=== PATIENT | male | born 1945 | race Caucasian/White ===

== ENCOUNTER 2017-11-10 07:54 | Day surgery (SDC) | payer MEDICARE, SELFPAY ==
[2017-10-08 12:06] VITALS: BMI 29.5
[2017-11-10 08:19] VITALS: BP 152/94; PULSE 72; RESP 16; TEMP 36.4; O2SAT 97; BMI 29.5
[2017-11-10] MEDS: Cefazolin 2 GM in 0.9% Normal Saline 100 ML IV (09:51)
[2017-11-10] MEDS: Bupiv/Epi 0.5% Mpf 30 ML Vial (10:39)
[2017-11-10 11:02] VITALS: BP 116/71; BP 152/94; PULSE 62; RESP 18; TEMP 36.1; O2SAT 94
[2017-11-10 11:05] VITALS: BP 115/74; BP 152/94; PULSE 59; RESP 18; O2SAT 95
[2017-11-10 11:10] VITALS: BP 124/90; BP 152/94; PULSE 61; RESP 18; O2SAT 94
--- NOTE | 2017-11-10 11:10 | RAD_ITS ---
STUDY: X-RAY CHEST REASON FOR EXAM: Male, 72 years old. Port insertion. TECHNIQUE: Single AP portable view of the chest. COMPARISON: None. FINDINGS: A right-sided portacatheter is in place. The tip is at the junction of the superior vena cava and right atrium. EKG electrodes are seen. Mild increased markings at the lung bases suggestive of linear atelectasis. There is no demonstrated pleural abnormality. Normal size heart. Normal mediastinum and elli. Normal visualized pulmonary arteries. There is atherosclerotic tortuosity of the aortic arch and descending thoracic aorta. There are diffuse degenerative changes of the visualized thoracic spine. Normal visualized ribs, clavicles, and shoulders. There is no demonstrated abnormality of the visualized soft tissue structures of the upper abdomen. RAD/CXR for Line Placement IMPRESSION: The tip of the right linda catheter is at the junction of the superior vena cava and right atrium. Findings suggest mild linear atelectasis at the lung bases. Electronically Signed: Tear Oviedo MD at 11:39 EDT Tel [phone], Service support ,
[2017-11-10 11:15] VITALS: BP 127/83; BP 152/94; PULSE 53; RESP 18; TEMP 36; O2SAT 95
--- NOTE | 2017-11-10 11:28 | PCM.DC.POR ---
Discharge Diet: - - Clear liquids for 24 hours, then regular as tolerated Discharge Activity: Return to Normal Activity, May Shower - with your bandage in place in 1-2 days after surgery. DO NOT SHOWER WHEN YOUR PORT IS ACCESSED. Call your doctor if your incision/area has: Continuous Slow Oozing, Sudden Increased Bleeding, Increased Pain/ Swelling, Increased Redness Call your doctor if you observe: Fever of 101 or Higher Remove Dressing in (days):: 3 - When you remove the bandage, leave the steri-strips intact until they fall off. Allergies/Adverse Reactions: Allergies No Known Allergies Allergy (Verified 11/07/17 09:02) Medications to take at Discharge Allopurinol [Zyloprim] 300 mg PO DAILY 10/07/17 Docusate Sodium [Dulcoease] 100 mg PO BID 10/07/17 Fluticasone 0.05% [Flonase Nasal [place]] 2 spray NASAL DAILY 10/07/17 Lisinopril [Zestril] 5 mg PO DAILY 10/07/17 Oxycodone HCl/Acetaminophen [Percocet 5/325] 1 tab PO Q6H PRN PRN 10/07/17 Sennosides [Senna] 8.6 mg PO DAILY 10/07/17 Testosterone [Fortesta] 10 mg BC DAILY 10/07/17 Ondansetron HCl [Zofran] 4 mg PO Q8H PRN PRN #30 tab 10/09/17 Primary Care Physician: Yaquelin Joe NP-C [Primary Care Provider] - Test Results: Test results from this visit will be discussed in further detail at your follow-up appointment, if applicable. Please Follow Up With: Andrew Sims MD When: Call tomorrow to make 1 week follow up appt [phone]
--- NOTE | 2017-11-10 11:31 | DCINST_ITS ---
Discharge Diet: - - Clear liquids for 24 hours, then regular as tolerated Discharge Activity: Return to Normal Activity, May Shower - with your bandage in place in 1-2 days after surgery. DO NOT SHOWER WHEN YOUR PORT IS ACCESSED. Call your doctor if your incision/area has: Continuous Slow Oozing, Sudden Increased Bleeding, Increased Pain/ Swelling, Increased Redness Call your doctor if you observe: Fever of 101 or Higher Remove Dressing in (days):: 3 - When you remove the bandage, leave the steri- strips intact until they fall off. Allergies/Adverse Reactions: Allergies No Known Allergies Allergy (Verified 11/07/17 09:02) Medications to take at Discharge Allopurinol [Zyloprim] 300 mg PO DAILY 10/07/17 Docusate Sodium [Dulcoease] 100 mg PO BID 10/07/17 Fluticasone 0.05% [Flonase Nasal [place]] 2 spray NASAL DAILY 10/07/17 Lisinopril [Zestril] 5 mg PO DAILY 10/07/17 Oxycodone HCl/Acetaminophen [Percocet 5/325] 1 tab PO Q6H PRN PRN 10/07/17 Sennosides [Senna] 8.6 mg PO DAILY 10/07/17 Testosterone [Fortesta] 10 mg BC DAILY 10/07/17 Ondansetron HCl [Zofran] 4 mg PO Q8H PRN PRN #30 tab 10/09/17 Primary Care Physician: Yaquelin Joe NP-C [Primary Care Provider] - Test Results: Test results from this visit will be discussed in further detail at your follow- up appointment, if applicable. Please Follow Up With: Andrew Sims MD When: Call tomorrow to make 1 week follow up appt [phone]
--- NOTE | 2017-11-10 11:41 | OP.PCM_ITS ---
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 Cancer of the base of tongue. 2. Encounter for insertion of venous access port Post-Operative Diagnosis: Same Surgery/Procedure Performed:: 1. Fluoroscopy and ultrasound-guided right chest port utilizing right IJ. 2. EGD with PEG placement Specimen's removed: None Description of Procedure: After obtaining informed consent patient was brought back to the operating room MAC anesthesia was induced and the right chest and neck were prepped in normal sterile fashion. Ultrasound was used to evaluate both IJ is in the right IJ was selected. Next, using a needle, the right IJ was accessed and a guidewire was passed on into the superior vena cava under fluoroscopy guidance. A small incision was made over the puncture site and the dilator introducer was placed over the guidewire. Next this was capped and the pocket was made for the port. 1% lidocaine with epinephrine was injected in the proposed port site. An incision was made with scalpel. Electrocautery was used to make a pocket under the skin and subcutaneous tissue. Hemostasis was obtained. Next, the catheter was tunneled up to the neck incision site and placed through the introducer. The peel-away introducer was removed and the position of the catheter was confirmed on fluoroscopy. Next, the catheter was trimmed and attached to the port with the locking device. Interrupted 2-0 PDS were used to anchor the port to the chest wall and then the port was placed inside the pocket. The pocket was then flushed with saline and the port irrigated with saline. There was good blood return and the port flushed easily. Next, heparin was injected into the port. The skin was closed with subcutaneous interrupted 3-0 Vicryl sutures and interrupted skin 3-0 nylon sutures. A single 3-0 Vicryl sutures placed under the skin at the neck incision site. Steri-Strips were placed as well as op sites. Next the PEG portion of the procedure was undertaken. The abdomen was exposed and the endoscope was placed into the mouth and down into the stomach. There is a selected in the left upper quadrant and there was good one-to-one motion of the stomach wall and good transillumination. This area was marked and prepped with ChloraPrep. Next this area was injected with lidocaine and small incision was made in the skin. A needle was placed through this incision into the stomach wall under direct visualization with endoscope. Next a loop was placed through the catheter and grasped with a snare with the endoscope. The snare and endoscope were retracted and the loop was attached to the front end of the feeding tube. This was pulled back down through the mouth and into the stomach and out through the skin. The endoscope was placed back into the stomach and the feeding tube was in good position with no bleeding. There was some skin bleeding from the incision site and a 3-0 chromic suture was placed in a horizontal mattress fashion around the tube and tightened. Hemostasis was obtained. Next the hub was placed over the feeding tube as well as the clamp and it was trimmed and the port was placed onto the catheter. The endoscope was removed. Patient tolerated procedure well, was taken to PACU in stable condition. Chest x-ray will be obtained. Grafts/Implants Used: 8 [place] [employer]
[2017-11-10 12:19] VITALS: BP 152/94; RESP 18
--- NOTE | 2017-11-10 12:22 | SUR.PHASEII ---
SPENT 15-20 MINUTES REVIEWING PEG TUBE CARE AND FLUSHING USING DEMO KIT WELL D/C INSTRUCTIONS, RETURNS DEMONSTRATION AND BOTH VERBALIZE UNDERSTANDING. PATIENT TAKEN STRAIGHT TO OUTPATIENT PAVIL[facility] FOR RADIATION THERAPY.
== END 2017-11-10 12:17 | disposition home or self-care (01) ==
LOC: EN 07:56 → AC 07:56
PROVIDERS: Family Provider Nurse Practitioner; PCP Nurse Practitioner; Visit Provider Surgery
PROC: 0DH64UZ Insertion of Feeding Device into Stomach, Percutaneous Endoscopic Approach (ICD-10-PCS; CPT 43246; principal; 2017-11-10 09:15)
PROC: (CPT 36561; 2017-11-10 09:15)
DX: C01 Malignant neoplasm of base of tongue (principal); Z45.2 Encounter for adjustment and management of vascular access device; I10 Essential (primary) hypertension; E78.00 Pure hypercholesterolemia, unspecified; G47.30 Sleep apnea, unspecified; Z79.899 Other long term (current) drug therapy; Z85.47 Personal history of malignant neoplasm of testis
CPT/HCPCS: 36561; 43246; 76937; 71045; 77001; J7120; C1788

== ENCOUNTER 2017-12-05 08:25 | Outpatient (RCR) | payer MEDICARE, SELFPAY ==
[2017-11-20 15:33] VITALS: BMI 29.5
== END 2017-12-12 23:59 ==
LOC: NS 08:25
PROVIDERS: Family Provider Nurse Practitioner; PCP Nurse Practitioner; Visit Provider Student in an Organized Health Care Education/Training Program
DX: C01 Malignant neoplasm of base of tongue (principal); Z71.3 Dietary counseling and surveillance
CPT/HCPCS: 77386; 97802

== ENCOUNTER 2017-12-24 12:30 | Outpatient (RCR) | payer MEDICARE, SELFPAY ==
[2017-11-20 15:33] VITALS: BMI 29.5
== END 2018-01-11 23:59 ==
LOC: NS 12:30
PROVIDERS: Family Provider Nurse Practitioner; PCP Nurse Practitioner; Visit Provider Student in an Organized Health Care Education/Training Program
DX: C01 Malignant neoplasm of base of tongue (principal); Z71.3 Dietary counseling and surveillance
CPT/HCPCS: 97803

== ENCOUNTER 2018-01-06 11:18 | Inpatient (IN) | payer MEDICARE, SELFPAY ==
[2017-11-20 15:33] VITALS: BMI 29.5
[2018-01-06 11:18] VITALS: BP 118/69; PULSE 87; RESP 16; TEMP 37.5; O2SAT 99; BMI 26.3
--- NOTE | 2018-01-06 11:34 | ED.DCSUM_ITS ---
- ER Visit Summary Date of Service: 01/06/18 Chief Complaint: Bacteremia History of Present Illness: The patient is a 72 M presents to the emergency department with positive blood cultures. The patient has a history of oropharyngeal cancer. He has undergone chemo and radiation. His last treatment was on the . He did follow-up in the oncology office yesterday. He has rather significant radiation dermatitis overlying his port. There was questionable cellulitis to the area. He had blood cultures obtained which were positive for staph aureus. Presents here today. He does not feel like he had fevers. He has had some diffuse joint pain, but states that is been normal throughout his treatment. He denies any nausea or vomiting. He denies any shortness of breath. Physical Examination: Vital signs reviewed General: Well-nourished, well-developed Head: Normocephalic, atraumatic Eyes: Pupils equal and reactive, extraocular muscles intact Neck, supple, no lymphadenopathy Heart: Regular rate and rhythm Respiratory: No distress, clear bilaterally, dermatitis across the anterior neck down into the anterior chest. There is purulence overlying his port. There is tenderness to palpation. Abdomen: Soft, nontender, nondistended, no peritoneal signs Back: Nontender Extremities: Nontender, no edema, no cords Skin: Normal color, radiation dermatitis Neuro: Alert and oriented, no focal or lateralizing deficits Test Results: [] Emergency Department Course and Treatment: IV was established on patient arrival. There is some purulent drainage from overlying his port site. I did discuss the blood cultures with Dr. Mcgraw, for infectious disease. The PCR was mecA not detected. He did recommend starting cefazolin, 2 g every 8 hours. Screening labs were obtained and were relatively unremarkable. I did discuss the patient with Dr. coyle. He is going to remove the patient's MediPort. The patient will be admitted for IV antibiotics and infectious disease consult. He was discussed with the hospitalist. Treatment Plan: [] Disposition: Admission Impression: 1. Bacteremia 2. Infected Mediport This note was generated with [employer] dictation software. It may contain incorrect words, spelling, and punctuation that were not noted in review of the chart prior to signing ED Disposition - Plan for ED Patient: Chief Complaint: General Illness Referrals: Yaquelin Joe, BRUNA-C [Primary Care Provider] -
[2018-01-06] MEDS: Morphine 4 MG/ML Syringe IV (11:39)
[2018-01-06 11:55] LABS: Absolute Neutrophil Count 3.8 X10^3/uL (2.0-7.7); Basophil# 0.02 X10^3/uL; Basophil% 0.4 % (0-1); Hematocrit 32.5 % (40-54); Hemoglobin 10.7 g/dl (13.0-16.5); Mean Corp Hgb Conc 32.9 g/gl (32-36); Mean Corpuscular Hgb 29.2 pg (27.0-32.0); Mean Corpuscular Volume 88.6 fL (80-94); Mean Platelet Vol. 8.8 fl (6.2-12.0); Monocyte# 0.85 X10^3/uL; Monocyte% 15.8 % (0-10); Neutrophil # 3.79 X10^3/uL (2.7-7.7); Neutrophil % 70.6 % (47-70); Platelet Count 183 K/mm3 (150-450); RBC Distribution Width CV 14.2 % (11.6-14.6); RBC Distribution Width SD 46.5 fl (35.1-43.9); Red Blood Count 3.67 M/mm3 (4.6-6.2); White Blood Count 5.4 K/mm3 (4.4-11.0)
[2018-01-06 11:57] LABS: POSITIVE COUNT NO; POSITIVE DIFFERENTIAL NO; POSITIVE MORPHOLOGY NO
[2018-01-06 12:10] LABS: ALB/GLOB Ratio 0.7 RATIO (0.9-2.4); AST(SGOT) 24 U/L (15-37); Alanine Aminotransfer ALT/SGPT 89 U/L (16-61); Albumin, Serum 2.8 g/dL (3.2-5.0); Alkaline Phosphatase 152 U/L (45-117); Anion Gap 6 (5-15); BUN 22 mg/dL (7-18); BUN/Creat Ratio 23.8 RATIO (10-20); Calcium,Total 8.3 mg/dL (8.5-10.1); Chloride 102 mmol/L (98-107); Creatinine, Serum 0.92 mg/dL (0.70-1.30); EST Glomerular Filtration Rate 86 mL/min (>60); Est Glom Filt Rate - Afr Amer 104 mL/min (>60); Estimated Creatinine Clearance 80.83 ml/min; Globulin 4.3 g/dL (2.2-4.2); Glucose 146 mg/dL (74-106); Potassium 4.2 mmol/L (3.5-5.1); Protein, Total 7.1 g/dL (6.4-8.2); Sodium Level 135 mmol/L (136-145)
[2018-01-06 12:18] LABS: Lactic Acid 0.6 mmol/L (0.4-2.0)
--- NOTE | 2018-01-06 12:53 | ED.RN ---
pt enroute to dr jensen office to have port removed and will then be taken to his room on the floor.
--- NOTE | 2018-01-06 12:59 | HP.PCM_ITS ---
Problem List (1) Port or reservoir infection Status: Acute (2) Regional lymph node metastasis present Status: Chronic (3) Malignant neoplasm of base of tongue Status: Chronic (4) Constipation Status: Acute Qualifiers: Constipation type: unspecified constipation type Qualified Code(s): K59.00 - Constipation, unspecified (5) Chemotherapy management, encounter for Status: Acute (6) Dehydration Status: Acute (7) Central line complication Status: Acute Qualifiers: Encounter type: initial encounter Qualified Code(s): T82.9XXA - Unspecified complication of cardiac and vascular prosthetic device, implant and graft, initial encounter (8) Testicular cancer Status: Acute (9) HTN (hypertension) Status: Chronic (10) Gout Status: Acute (11) MIGUEL (obstructive sleep apnea) Status: Acute (12) Dyslipidemia Status: Acute (13) History of orchiectomy Status: Acute (14) S/P cervical spinal fusion Status: Acute (15) S/P rotator cuff repair Status: Acute (16) Squamous cell carcinoma Status: Acute Comment: neck History of Present Illness Date of Admission: 01/06/18 Chief Complaint: Discharge from the port site The patient is a 72 year old M with past medical history significant for head and neck CA (tongue CA) for which patient underwent radical neck dissection on the right and excision of submandibular gland in August 2017. Patient has since received chemo and radiation. He has a poor. Upon routine follow-up with his oncologist the port site was found to be erythematous with some discharge. Cultures were obtained which came back positive for staph aureus. Patient was therefore advised to present to the emergency department. An assessment of port site infection was made started on cefazolin and admitted to regular nursing floor for further management and on further questioning patient admitted to intermittent fever but no chills. Past Medical History Past Medical History (Chronic Problems): Chronic Problems (Last Reviewed 01/05/18 @ 11:41 by Amberly Liu) Regional lymph node metastasis present (Chronic) Malignant neoplasm of base of tongue (Chronic) HTN (hypertension) (Chronic) Medical History: Medical History (Last Reviewed 01/05/18 @ 11:41 by Amberly Liu) Testicular cancer (Acute) C62.90 HTN (hypertension) (Chronic) I10 Gout (Acute) M10.9 MIGUEL (obstructive sleep apnea) (Acute) G47.33 Dyslipidemia (Acute) E78.5 Squamous cell carcinoma (Acute) C44.92 neck Allergies No Known Allergies Allergy (Verified 01/06/18 11:22) Home Medications: Ambulatory Orders Medication Instructions Recorded Testosterone [Fortesta] 2 gm BC DAILY 10/07/17 Amoxicillin/Potassium Clav 1 each GT BID 01/06/18 [Augmentin 875-125 Tablet] Lactose-Reduced Food/Fiber 165 GT QHS 01/06/18 [Isosource 1.5 Matthew Tube Feed Lq] Metoclopramide [Reglan] 10 mg GT 4X/DAY PRN 01/06/18 Oxycodone HCl [Roxicodone] 5 mg GT Q6H PRN PRN 01/06/18 Polyethylene Glycol 3350 [Miralax] 17 gm GT DAILY PRN 01/06/18 Surgical History: Surgical History (Last Reviewed 01/05/18 @ 11:42 by Amberly Liu) History of orchiectomy (Acute) Z90.79 S/P cervical spinal fusion (Acute) Z98.1 S/P rotator cuff repair (Acute) Z98.890 Smoking Status: Former smoker - *Family History Maternal Family History: Family History (Last Reviewed 12/29/17 @ 13:35 by Amberly Liu) Mother Alzheimer's dementia Father Heart disease Myocardial infarction Heart failure History Items: Heart Disease Review of Systems Constitutional: Reports: Chills, Fever HEENT: Denies: Head Aches, Sinus Congestion, Sinus Drainage Cardiovascular: Denies: Chest Pain, Orthopnea, Palpitations, Paroxysmal Noc. Dyspnea Respiratory: Denies: Cough, Shortness of breath at rest, Shortness of breath upon exertion, Sputum production Gastrointestinal: Denies: Abdominal Pain, Hematemesis, Hematochezia, Nausea, Me silvia, Vomiting Genitourinary: Denies: Dysuria, Frequency, Hematuria, Urgency Musculoskeletal: Denies: Joint Pain, Joint Tenderness Skin: Reports: Rash Neurological: Denies: Focal weakness, Numbness, Tingling Psychiatric: Denies: Homicidal Ideations, Suicidal Ideations VTE Information - Inpt Only VTE Present on Admission: No VTE Mechan Device Prophylaxis: Knee High PAULA Hose VTE Pharm Prophylaxis ordered?: Yes Patient Problems: Active and Suspected Problems (Last Reviewed 01/05/18 @ 11:41 by Amberly Liu) Constipation (Acute) Chemotherapy management, encounter for (Acute) Dehydration (Acute) Central line complication (Acute) Port or reservoir infection (Acute) Infection due to Port-A-Cath (Acute) - Physical Exam General: Alert, Oriented x3, Cooperative HEENT: Atraumatic, Normocephalic Neck: Supple, No JVD, Trachea Midline, - - Radiation dermatitis around the neck Lungs: Clear to auscultation, No wheeze Cardiovascular: Regular rate, Normal S1, Normal S2, PMI Normal Abdomen: Bowel Sounds Present, Soft, Non Tender Extremities: No clubbing, No cyanosis, No edema Skin: - - Radiation dermatitis involving the neck Musculoskeletal: - - Full range of motion in all major muscle groups. Neurological: Neuro grossly intact Psych/Mental Status: Normal Affect Vital Signs Temp Pulse Resp BP Pulse Ox 99.5 F H 87 16 118/69 99 01/06/18 11:18 01/06/18 11:18 01/06/18 11:18 01/06/18 11:18 01/06/18 11:18 Oxygen Delivery Method Room Air Weight: 87.997 kg Body Mass Index (BMI) 26.3 Laboratory Tests Past 24 Hrs 01/06/18 01/06/18 01/06/18 11:41 11:41 11:41 WBC 5.4 RBC 3.67 L Hgb 10.7 L Hct 32.5 L MCV 88.6 MCH 29.2 MCHC 32.9 RDW 14.2 RDW Differential 46.5 H Plt Count 183 MPV 8.8 Immature Gran % (Auto) 0.200 Neut % (Auto) 70.6 H Lymph % (Auto) 13.0 L [place] % (Auto) 15.8 H Eos % (Auto) 0.0 Baso % (Auto) 0.4 Absolute Neuts (auto) 3.8 Absolute Lymphs (auto) 0.70 L Total Counted Not Reportable Sodium 135 L Potassium 4.2 Chloride 102 Carbon Dioxide 27.0 Anion Gap 6 BUN 22 H Creatinine 0.92 Estim Creat Clear Calc 80.83 Est GFR (MDRD) Af Amer 104 Est GFR (MDRD) Non-Af 86 BUN/Creatinine Ratio 23.8 H Glucose 146 H Lactic Acid 0.6 Calcium 8.3 L Total Bilirubin 0.40 AST 24 ALT 89 H Alkaline Phosphatase 152 H Total Protein 7.1 Albumin 2.8 L Globulin 4.3 H Albumin/Globulin Ratio 0.7 L Assessment/Plan All Active Problems (Last Reviewed 01/05/18 @ 11:41 by Amberly Liu) Constipation (Acute) Chemotherapy management, encounter for (Acute) Dehydration (Acute) Central line complication (Acute) Port or reservoir infection (Acute) Infection due to Port-A-Cath (Acute) Testicular cancer (Acute) Gout (Acute) MIGUEL (obstructive sleep apnea) (Acute) Dyslipidemia (Acute) History of orchiectomy (Acute) S/P cervical spinal fusion (Acute) S/P rotator cuff repair (Acute) Squamous cell carcinoma (Acute) Patient is a 72-year-old gentleman with history of head and neck CA currently undergoing chemoradiation therapy presented with erythema and discharge from his port site 1. Acute port infection: Blood cultures obtained and as outpatient so far positive for staph aureus. Patient was started on cefazolin as well as vancomycin with consultation placed infectious disease 2. Head and neck CA) tongue CA) status post modified radical neck dissection on the right and excision of submandibular gland August 2017 consultation was placed the patient's oncologist Dr. Lozano 3. Gout patient is on allopurinol 4. Hypertension was previously on lisinopril however is not taking his medication for months and his blood pressure appears well-controlled 5. DVT prophylaxis SC Lovenox Code Visit Inpatient E&M: 89433 Init Hosp L3
[2018-01-06] MEDS: Cefazolin 2 GM in 0.9% Normal Saline 100 ML IV (14:13)
[2018-01-06 14:26] VITALS: BMI 26.2
[2018-01-06 14:30] VITALS: BMI 26.2
--- NOTE | 2018-01-06 14:46 | PCM.PN.SRG ---
Patient Problems: Active and Suspected Problems (Last Reviewed 01/05/18 @ 11:41 by Amberly Liu) Constipation (Acute) Chemotherapy management, encounter for (Acute) Dehydration (Acute) Central line complication (Acute) Port or reservoir infection (Acute) Subjective: Patient is having pain in the right upper chest and there is purulent drainage from his port site. No fevers or chills. - Physical Exam General: Alert, Oriented x3, Cooperative Neck: - - Patient has radiation dermatitis of the neck Lungs: - - Patient has redness and purulence at the port site with drainage of purulent material Cardiovascular: Regular rate, Regular Rhythm Abdomen: Soft, Non Tender Vital Signs Temp Pulse Resp BP Pulse Ox 99.5 F H 87 16 118/69 99 01/06/18 11:18 01/06/18 11:18 01/06/18 11:18 01/06/18 11:18 01/06/18 11:18 Oxygen Delivery Method Room Air Weight: 193 lb Body Mass Index (BMI) 26.2 Laboratory Tests Past 24 Hrs 01/06/18 01/06/18 01/06/18 11:41 11:41 11:41 WBC 5.4 RBC 3.67 L Hgb 10.7 L Hct 32.5 L MCV 88.6 MCH 29.2 MCHC 32.9 RDW 14.2 RDW Differential 46.5 H Plt Count 183 MPV 8.8 Immature Gran % (Auto) 0.200 Neut % (Auto) 70.6 H Lymph % (Auto) 13.0 L [place] % (Auto) 15.8 H Eos % (Auto) 0.0 Baso % (Auto) 0.4 Absolute Neuts (auto) 3.8 Absolute Lymphs (auto) 0.70 L Total Counted Not Reportable Sodium 135 L Potassium 4.2 Chloride 102 Carbon Dioxide 27.0 Anion Gap 6 BUN 22 H Creatinine 0.92 Estim Creat Clear Calc 80.83 Est GFR (MDRD) Af Amer 104 Est GFR (MDRD) Non-Af 86 BUN/Creatinine Ratio 23.8 H Glucose 146 H Lactic Acid 0.6 Calcium 8.3 L Total Bilirubin 0.40 AST 24 ALT 89 H Alkaline Phosphatase 152 H Total Protein 7.1 Albumin 2.8 L Globulin 4.3 H Albumin/Globulin Ratio 0.7 L Medical Necessity - Tobacco Use Smoking Status: Never smoker Assessment/Plan All Active Problems (Last Reviewed 01/05/18 @ 11:41 by Amberly Liu) Constipation (Acute) Chemotherapy management, encounter for (Acute) Dehydration (Acute) Central line complication (Acute) Port or reservoir infection (Acute) Testicular cancer (Acute) Gout (Acute) MIGUEL (obstructive sleep apnea) (Acute) Dyslipidemia (Acute) History of orchiectomy (Acute) S/P cervical spinal fusion (Acute) S/P rotator cuff repair (Acute) Squamous cell carcinoma (Acute) 72-year-old male with bacteremia and port infection 1. Patient had culture earlier this week of his blood and his port which both grew staph. The patient is having purulent drainage from around his port. He presented to the office on his way to the floor from the emergency room for port removal. 2. I did remove his port and send culture of the fluid around the port as well as the port itself for culture. Patient tolerated the procedure well. Andrew Sims MD Pager: [facility] [address] [place] [address], [address] [place] [phone] Office:
--- NOTE | 2018-01-06 14:48 | PCM.OPRPT ---
Problem List (1) Infection due to Port-A-Cath Status: Acute Qualifiers: Encounter type: initial encounter Qualified Code(s): T80.219A - Unspecified infection due to central venous catheter, initial encounter Report of Operation Date of Procedure: 01/06/18 Pre-Operative Diagnosis: Infection of right chest port Post-Operative Diagnosis: Same Surgery/Procedure Performed:: Removal of right chest port Specimen's removed: Port and culture of fluid around port Description of Procedure: The patient was anesthetized and the former incision was opened. There was purulent drainage around the port. This was cultured. Next the catheter was withdrawn from its tunnel and the port was removed from its pocket. The pocket was irrigated copiously and packed with half-inch iodoform gauze and bandage. Patient tolerated the procedure well. Culture and port will be sent for results. The patient was sent from here to the floor for IV antibiotics.
[2018-01-06] MEDS: morphine 10 MG/ML Syringe IV ×2 (15:00→15:15)
[2018-01-06] MEDS: Dext 5%-0.45% NS 1,000 ML 100 ML IV (15:00)
--- NOTE | 2018-01-06 15:22 | PCM.RX.CS ---
Consult Pharmacy has been consulted to manage selected antiobiotic: Vancomycin Type of Consult: New start Suspected Infection: Bacteremia Prior Doses of Antibiotics Received/Current Regimen: NONE Labs: Sodium 135 mmol/L (136-145) L 01/06/18 11:41 Potassium 4.2 mmol/L (3.5-5.1) 01/06/18 11:41 Chloride 102 mmol/L (98-107) 01/06/18 11:41 Carbon Dioxide 27.0 mmol/L (21.0-32.0) 01/06/18 11:41 Anion Gap 6 (5-15) 01/06/18 11:41 BUN 22 mg/dL (7-18) H 01/06/18 11:41 Creatinine 0.92 mg/dL (0.70-1.30) 01/06/18 11:41 Est GFR (MDRD) Af Amer 104 mL/min (>60) 01/06/18 11:41 Est GFR (MDRD) Non-Af 86 mL/min (>60) 01/06/18 11:41 BUN/Creatinine Ratio 23.8 RATIO (10-20) H 01/06/18 11:41 Glucose 146 mg/dL (74-106) H 01/06/18 11:41 Weight used for dosin kg Estimated Creatinine Clearance: 81ML/MIN Goal Trough: 15-20 mcg/mL Pharmacy Plan for Drug Dosing: Pharmacy consulted for vancomycin management for positive blood cultures. An initial 15mg/kg was ordered, however the patient's scheduled regimen came out to 1500mg, while the loading dose was 1250mg. Since the loading dose was a smaller dose then the recommended regimen per protocol, a clinical decision was made to just start the patient on scheduled vancomycin and omit the initial dose given it was less. Will check a trough prior to the 4th dose of regimen. PLAN/RECOMMENDATIONS 1. Vancomycin 1500mg IV Q12hrs to start 01/06/18 @1600 2. Trough scheduled 01/08/18 @0330 3. Pharmacy Service will continue to monitor and adjust dosing as required.
--- NOTE | 2018-01-06 15:41 | NS ---
Rec nocturnal feeding from 9 p.m. to 6 a.m (9 hour feeding) as is pt's goal at home. Rec Jevity 1.5 at goal rate of 195cc/hour for 9 hours w/ 100cc H2O flush before and after feeding and w/ an additional 210cc flush 5x throughout the day to provide 2633 calories, 112 g protein, and 2584cc total fluid per day. Would start FIRST feeding at 165cc/hour and increase by 15cc every 3 hours as pt tolerates until goal rate achieved. Pippa Orr MS, RDN, LD
--- NOTE | 2018-01-06 16:33 | CON.PCM_ITS ---
Consult Referring Physician: Dr. Bindu Quiroga. Consult Results: Port related sepsis. 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 Patient finished adjuvant chemo and radiation on 12/25/2017. He was found to have redness at the port site with some discharge. Cultures were obtained which came back positive for staph aureus. Patient went to the emergency department. An assessment of port site infection was made, started on cefazolin and Vancomycin, admitted to regular nursing floor for further management. He has slight pain in the neck. Past Medical History: Chronic Problems (Last Reviewed 01/05/18 @ 11:41 by Amberly Liu) Regional lymph node metastasis present (Chronic) Malignant neoplasm of base of tongue (Chronic) HTN (hypertension) (Chronic) Past Medical/Surgical History: Past Medical History - Most Recent Inpatient Visit Past Medical History Start: 01/06/18 13:45 Text: Status: Complete Freq: ONCE Protocol: Document 01/06/18 14:30 [facility] [place] (Rec: 01/06/18 14:34 [facility] [place] [id number]) BMI Required to complete PMH What is Patient's BMI 26.2 Past Medical History Unable History Recalled Yes Query Text:Pt Unable/Family Not Present Neurologic Medical History Hx Stroke/TIA No Hx Dementia/Alzheimer's No Hx Parkinson's Disease No Hx Seizures No Hx Multiple Sclerosis No Hx Migraines No Cardiac Medical History VTE Present on Admission No Hx of Deep Vein Thrombosis/VTE/PE No Hx Hypertension Yes: on medication Hx Chest Pain/Angina No Hx Heart Attack No Hx Cardiac Surgery/Stents/Etc. No Hx Heart Failure No Hx Pacemaker/AICD No Hx Irregular Heartbeat and/or Afib No Hx Anticoagulant Therapy No Query Text:(Coumadin, Aspirin, Plavix, Xarelto, etc.) Hx Pain in Legs when Walking/Leg Cramps No Respiratory Medical History Hx COPD No Hx Emphysema No Hx Smoking No Smoking Status Never smoker Hx Tobacco Use in last 12 months No Hx Sleep Apnea Yes CPAP No BIPAP No STOP Results Positive GI Medical History Hx Ulcer No Hx Hepatitis No Hx Cirrhosis No Hx GI Bleed No Hx Unplanned Weight Loss Yes Genitourinary Medical History Indwelling Catheter in Place on Arrival/ No Admission Hx Renal Disease No Hx Dialysis No Musculoskeletal History Hx Arthritis Yes: left knee Hx Rheumatoid Arthritis No Endocrine Medical History Hx Diabetes No Hx Thyroid Disease No Hematologic Medical History Hx of Blood Transfusion No Hx of Transfusion in last 3 Months No Ever experience any problems with No transfusion(s)? Hx of Preganancy in last 3 Months N/A Nurse Filling Out Transfusion & SGESSEL Questions: Date: 01/06/18 Time: 14:32 Psycho/Social Medical History Hx Depression No Hx Anxiety No Hx Alcohol Use No: rare Hx Substance Use No Other Medical History Hx Blood Disorders No Hx Anemia No Hx Cancer Yes: tongue cancer-August 2017 s/ p radiation and chemo finished 12/25/17 Hx Drug Resistant Organism No Wound/Pressure Injury Present on Arrival No /Admission Query Text:If yes, chart assessment in Shift/Clinical Findings Central Line/PICC/VAD Present on Arrival No /Admission Antibiotics within last 7 days? Yes Name of Antibiotic (Include dose/# days Amoxicillin taken if known) Last day ATB taken 01/06/18 Comments Port removed 01/06/18 Risk for Readmission Number of Risk Factors 3 At Risk for Readmission Patient is At Risk For Readmission Patient is eligible for Call Back Y Past Medical History (Last Reviewed 01/05/18 @ 11:41 by Amberly Liu) Testicular cancer (Acute) HTN (hypertension) (Chronic) Gout (Acute) MIGUEL (obstructive sleep apnea) (Acute) Dyslipidemia (Acute) Squamous cell carcinoma (Acute) Past Surgical History (Last Reviewed 01/05/18 @ 11:42 by Amberly Liu) History of orchiectomy (Acute) S/P cervical spinal fusion (Acute) S/P rotator cuff repair (Acute) Maternal Family History: Family History (Last Reviewed 12/29/17 @ 13:35 by Amberly Liu) Mother Alzheimer's dementia Father Heart disease Myocardial infarction Heart failure Family History: Heart Disease - Social History Smoking Status: Former smoker Allergies/Adverse Reactions: Allergy/AdvReac Type Severity Reaction Status Date / Time No Known Allergies Allergy Verified 01/06/18 11:22 Review of Systems Constitutional:: Reports: Pain - neck.. Denies: Fever, Sweats Cardiovascular:: Denies: Chest pain, Palpitations, Dyspnea on exertion, Orthopnea, PND, Shortness of breath Respiratory: Denies: Cough, Hemoptysis, Shortness of Breath, Wheezing Gastrointestinal:: Reports: Nausea. Denies: Abdominal pain, Vomiting, Diarrhea, Constipation, Hematochezia Genitourinary: Denies: Dysuria, Hematuria, 15, Flank pain Musculoskeletal:: Denies: Back pain, Myalgia, Arthralgia Skin: Reports: - - skin peeling around the neck. Neurological:: Denies: Headache, Dizziness, Visual changes, Tinnitus, Hearing loss Psychiatric: Denies: Anxiety, Depression, Homicidal Ideations, Suicidal Ideations Vital Signs Height 6 ft Weight: 87.543 kg Weight in Pounds 193.0 lbs BMI 29.5 Pulse Ox 99 Temperature 99.5 F Pulse Rate 87 Respiratory Rate 16 Blood Pressure 118/69 - Physical Exam General: Alert, Oriented x3, No apparent distress HEENT: Atraumatic, PERRLA, EOMI, Normocephalic Neck:: - Cardiac:: Regular rate, Regular rhythm, Normal S1, Normal S2. Negative for: Murmur Lungs: Clear to auscultation, Excusion symmetrical. Negative for: Rhonchi, Wheezes Abdomen:: Bowel sounds x 4, Soft, Non-tender, Non-distended. Negative for: Hepatosplenomegaly Extremities:: Negative for: Cyanosis, Edema Neurological: Neuro grossly intact Skin:: Redness - Right and Left side with desquamation, - - Port site R IC area still oozing. Psychiatric:: Appropriate affect, Euthymic Lymphatics:: Negative for: Cervical lymphadenopathy, Supraclavicular lymphadenopathy, Axillary lymphadenopathy Laboratory Data: Laboratory Tests 01/06/18 01/06/18 01/06/18 Range/Units 11:41 11:41 11:41 WBC 5.4 (4.4-11.0) K/mm3 RBC 3.67 L (4.6-6.2) M/mm3 Hgb 10.7 L (13.0-16.5) g/dl Hct 32.5 L (40-54) % MCV 88.6 (80-94) fL MCH 29.2 (27.0-32.0) pg MCHC 32.9 (32-36) g/gl RDW 14.2 (11.6-14.6) % RDW Differential 46.5 H (35.1-43.9) fl Plt Count 183 (150-450) K/mm3 MPV 8.8 (6.2-12.0) fl Immature Gran % (Auto) 0.200 (0.0-0.9) % Neut % (Auto) 70.6 H (47-70) % Lymph % (Auto) 13.0 L (19-41) % [place] % (Auto) 15.8 H (0-10) % Eos % (Auto) 0.0 (0-5) % Baso % (Auto) 0.4 (0-1) % Absolute Neuts (auto) 3.8 (2.0-7.7) X10^3/uL Absolute Lymphs (auto) 0.70 L (0.83-4.51) X10^3/ul Total Counted Not Reportable Sodium 135 L (136-145) mmol/L Potassium 4.2 (3.5-5.1) mmol/L Chloride 102 (98-107) mmol/L Carbon Dioxide 27.0 (21.0-32.0) mmol/L Anion Gap 6 (5-15) BUN 22 H (7-18) mg/dL Creatinine 0.92 (0.70-1.30) mg/dL Estim Creat Clear Calc 80.83 ml/min Est GFR (MDRD) Af Amer 104 (>60) mL/min Est GFR (MDRD) Non-Af 86 (>60) mL/min BUN/Creatinine Ratio 23.8 H (10-20) RATIO Glucose 146 H (74-106) mg/dL Lactic Acid 0.6 (0.4-2.0) mmol/L Calcium 8.3 L (8.5-10.1) mg/dL Total Bilirubin 0.40 (0.20-1.00) mg/dL AST 24 (15-37) U/L ALT 89 H (16-61) U/L Alkaline Phosphatase 152 H (45-117) U/L Total Protein 7.1 (6.4-8.2) g/dL Albumin 2.8 L (3.2-5.0) g/dL Globulin 4.3 H (2.2-4.2) g/dL Albumin/Globulin Ratio 0.7 L (0.9-2.4) RATIO Assessment and Plan Port related sepsis, s/p port removal. H/O Right base of tongue cancer, stage II (cT1 N2 M0). Suggestion is to continue Broad spectrum antibiotics. If stable, he can be discharged home for outpatient Oncology Follow up. Thanks. Medications: Prescriptions This Visit Medication Instructions Recorded Amoxicillin/Potassium Clav 1 each GT BID 01/06/18 [Augmentin 875-125 Tablet] Lactose-Reduced Food/Fiber 165 GT QHS 01/06/18 [Isosource 1.5 Matthew Tube Feed Lq] Metoclopramide [Reglan] 10 mg GT 4X/DAY PRN 01/06/18 Oxycodone HCl [Roxicodone] 5 mg GT Q6H PRN PRN 01/06/18 Polyethylene Glycol 3350 [Miralax] 17 gm GT DAILY PRN 01/06/18 Medications Added to Medication List This Visit Category Date Time Status 0.9% Normal Saline 250 ml Med 01/06/18 14:55 Active IV 15 mls/hr 0.9% Saline Lock Med 01/06/18 14:55 Active 5 - 30 ml IV UD PRN Acetaminophen [Tylenol] Med 01/06/18 14:12 Active 650 mg PO Q6H PRN PRN Bisacodyl [Dulcolax] Med 01/06/18 14:12 Active 10 mg PO DAILY PRN PRN Cefazolin Med 01/06/18 22:00 Active 1 gm in 50 ml IV Q8 Dext 5%-0.45% NS 1,000 ml Med 01/06/18 15:00 Active IV 100 mls/hr Dextrose 50%-Water [D50w Syringe] Med 01/06/18 14:12 Active See Protocol IV X1 PRN Docusate Sodium [Colace] Med 01/06/18 14:12 Active 200 mg PO BID PRN PRN Enoxaparin [Lovenox] Med 01/07/18 10:00 Active 40 mg SC DAILY@1000 Glucagon Med 01/06/18 14:12 Active 1 mg IM .X1 PRN Influenza Vaccine (36Mos+)/Pf [Fluarix/Fluzone] Med 01/08/18 06:00 Once 0.5 ml IM .ONCE ONE Mag Hydrox/Al Hydrox/Simeth [Mylanta II] Med 01/06/18 14:12 Active 30 ml PO Q6H PRN PRN Magnesium Hydroxide [Milk Of Magnesia] Med 01/06/18 14:12 Active 30 ml PO DAILY PRN PRN Metoclopramide [Reglan] Med 01/06/18 15:50 Active 10 mg GT ACHS PRN Mineral Oil/Petrolatum Cr [Aquaphor] Med 01/06/18 20:00 Active 1 applic TOPICAL DAILY Ondansetron [Zofran] Med 01/06/18 14:12 Active 4 mg IV Q8H PRN PRN Oxycodone [Oxyir] Med 01/06/18 14:55 Active 10 mg PO Q4H PRN PRN Polyethylene Glycol 3350 [Miralax] Med 01/06/18 15:50 Active 17 gm GT DAILY PRN Vancomycin IV 1,500 mg Med 01/06/18 16:00 Active 0.9% Normal Saline 500 ml IV Q12H Vancomycin IV Pharmacy to Dose 1 ea Med 01/06/18 14:12 Active 0.9% Normal Saline 500 ml IV PRN Zolpidem Tartrate [Ambien (Generic)] Med 01/06/18 14:12 Active 5 mg PO QHS PRN PRN morphine Inj Med 01/06/18 14:57 Active 10 mg IV Q4H PRN PRN Primary Care Provider: Yaquelin Joe NP- Referring Provider: Joe Quiroga - Problem List (1) Infection due to Port-A-Cath Status: Acute Qualifiers: Encounter type: initial encounter Qualified Code(s): T80.219A - Unspecified infection due to central venous catheter, initial encounter (2) Malignant neoplasm of base of tongue Status: Chronic Code Visit Office Visits / Consults: [id number] IP Consult L4
[2018-01-06] MEDS: oxyCODONE 5 MG Tablet 10 MG PO (19:34)
[2018-01-06 19:58] VITALS: BP 126/71; PULSE 73; RESP 16; TEMP 37.4; O2SAT 95
[2018-01-06] MEDS: Mineral Oil/Petrolatum Cr 1.75oz Bottle 1 APPLIC TOPICAL (20:10)
[2018-01-06] MEDS: Jevity 1.5 1,000 ML 165 ML GT (22:05)
[2018-01-06] MEDS: Cefazolin 1 GM/50 ML BAG IV (22:05)
[2018-01-06 22:16] LABS: Bedside Glucose 116 mg/dL (70-110)
[2018-01-07] MEDS: Dext 5%-0.45% NS 1,000 ML 100 ML IV (02:00)
[2018-01-07 04:00] VITALS: BP 107/64; PULSE 75; RESP 16; TEMP 37.2; O2SAT 92
[2018-01-07] MEDS: Jevity 1.5 1,000 ML 165 ML GT (04:38)
[2018-01-07 06:27] LABS: Absolute Lymphocyte Count 0.55 X10^3/ul (0.83-4.51); Absolute Neutrophil Count 1.7 X10^3/uL (2.0-7.7); Basophil# 0.01 X10^3/uL; Basophil% 0.4 % (0-1); Eosinophil# 0.04 X10^3/uL; Eosinophils% 1.4 % (0-5); Hematocrit 28.3 % (40-54); Hemoglobin 9.3 g/dl (13.0-16.5); Lymphocyte # 0.55 X10^3/ul (4.0); Lymphocyte % 19.3 % (19-41); Mean Corp Hgb Conc 32.9 g/gl (32-36); Mean Corpuscular Volume 91.3 fL (80-94); Mean Platelet Vol. 8.5 fl (6.2-12.0); Monocyte# 0.57 X10^3/uL; Neutrophil # 1.68 X10^3/uL (2.7-7.7); Neutrophil % 58.9 % (47-70); Platelet Count 181 K/mm3 (150-450); RBC Distribution Width CV 13.9 % (11.6-14.6); RBC Distribution Width SD 45.2 fl (35.1-43.9); White Blood Count 2.9 K/mm3 (4.4-11.0)
[2018-01-07 06:38] LABS: Anion Gap 7 (5-15); BUN 19 mg/dL (7-18); Chloride 106 mmol/L (98-107); Creatinine, Serum 0.86 mg/dL (0.70-1.30); EST Glomerular Filtration Rate 93 mL/min (>60); Est Glom Filt Rate - Afr Amer 112 mL/min (>60); Estimated Creatinine Clearance 86.47 ml/min; Glucose 162 mg/dL (74-106); Sodium Level 140 mmol/L (136-145)
[2018-01-07] MEDS: Cefazolin 1 GM/50 ML BAG IV (06:41)
[2018-01-07 07:02] LABS: Differential Indicated SCAN CRITERIA MET; POSITIVE COUNT NO; POSITIVE DIFFERENTIAL YES; POSITIVE MORPHOLOGY NO
[2018-01-07 07:04] LABS: Differential Comment SCANNED
--- NOTE | 2018-01-07 07:41 | PN_ITS ---
Patient Problems: Active and Suspected Problems (Last Reviewed 01/05/18 @ 11:41 by Amberly Liu) Constipation (Acute) Chemotherapy management, encounter for (Acute) Dehydration (Acute) Central line complication (Acute) Port or reservoir infection (Acute) Infection due to Port-A-Cath (Acute) Subjective: Patient is a 72-year-old gentleman with history of head and neck CA currently undergoing chemoradiation therapy presented with erythema and discharge from his port site 01/07/2018: Patient underwent Removal of right chest port Dr. Sims the day prior. Cultures were sent and results pending Objective: General: Alert, Oriented x3, Cooperative HEENT: Atraumatic, Normocephalic Neck: Supple, No JVD, Trachea Midline, - - Radiation dermatitis around the neck Lungs: Clear to auscultation, No wheeze Cardiovascular: Regular rate, Normal S1, Normal S2, PMI Normal Abdomen: Bowel Sounds Present, Soft, Non Tender Extremities: No clubbing, No cyanosis, No edema Skin: - - Radiation dermatitis involving the neck Musculoskeletal: - - Full range of motion in all major muscle groups. Neurological: Neuro grossly intact Psych/Mental Status: Normal Affect Vitals/I&O's: Vital Signs Temp Pulse Resp BP Pulse Ox 98.9 F 75 16 107/64 92 01/07/18 04:00 01/07/18 04:00 01/07/18 04:00 01/07/18 04:00 01/07/18 04:00 Oxygen Delivery Method Room Air Weight: 87.543 kg Body Mass Index (BMI) 26.2 Intake and Output for Last 24 Hours 01/05/18 01/06/18 01/07/18 23:59 23:59 23:59 Intake Total 130 / 130 2935 / 2935 Balance 130 / 130 2935 / 2935 Laboratory Results 01/06/18 11:41: WBC 5.4, RBC 3.67 L, Hgb 10.7 L, Hct 32.5 L, MCV 88.6, MCH 29.2, MCHC 32.9, RDW 14.2, RDW Differential 46.5 H, Plt Count 183, MPV 8.8, Immature Gran % (Auto) 0.200, Neut % (Auto) 70.6 H, Lymph % (Auto) 13.0 L, [place] % (Auto) 15.8 H, Eos % (Auto) 0.0, Baso % (Auto) 0.4, Absolute Neuts (auto) 3.8, Absolute Lymphs (auto) 0.70 L, Total Counted Not Reportable 01/06/18 11:41: Sodium 135 L, Potassium 4.2, Chloride 102, Carbon Dioxide 27.0, Anion Gap 6, BUN 22 H, Creatinine 0.92, Estim Creat Clear Calc 80.83, Est GFR (MDRD) Af Amer 104, Est GFR (MDRD) Non-Af 86, BUN/Creatinine Ratio 23.8 H, Glucose 146 H, Calcium 8.3 L, Total Bilirubin 0.40, AST 24, ALT 89 H, Alkaline Phosphatase 152 H, Total Protein 7.1, Albumin 2.8 L, Globulin 4.3 H, Albumin/Globulin Ratio 0.7 L 01/06/18 11:41: Lactic Acid 0.6 01/06/18 22:10: POC Glucose 116 H 01/07/18 05:25: Sodium 140, Potassium 4.0, Chloride 106, Carbon Dioxide 27.0, Anion Gap 7, BUN 19 H, Creatinine 0.86, Estim Creat Clear Calc 86.47, Est GFR (MDRD) Af Amer 112, Est GFR (MDRD) Non-Af 93, BUN/Creatinine Ratio 22.0 H, Glucose 162 H, Calcium 8.0 L 01/07/18 05:25: WBC 2.9 L, RBC 3.10 L, Hgb 9.3 L, Hct 28.3 L, MCV 91.3, MCH 30.0, MCHC 32.9, RDW 13.9, RDW Differential 45.2 H, Plt Count 181, MPV 8.5, Immature Gran % (Auto) 0.000, Neut % (Auto) 58.9, Lymph % (Auto) 19.3, [place] % (Auto) 20.0 H, Eos % (Auto) 1.4, Baso % (Auto) 0.4, Absolute Neuts (auto) 1.7 L, Absolute Lymphs (auto) 0.55 L, Total Counted Not Reportable, Differential Comment SCANNED Current Medications Acetaminophen (Tylenol) 650 mg PO Q6H PRN PRN PRN Reason: Mild Pain (scale 0-3)/T>100.7 Al Hydroxide/Mg Hydroxide (Mylanta Ii) 30 ml PO Q6H PRN PRN PRN Reason: Gastric Burning Bisacodyl (Dulcolax) 10 mg PO DAILY PRN PRN PRN Reason: Constipation Dextrose (D50w Syringe) 0 gm IV X1 PRN; Protocol PRN Reason: Hypoglycemia Docusate Sodium (Colace) 200 mg PO BID PRN PRN PRN Reason: Constipation Enoxaparin Sodium (Lovenox) 40 mg SC DAILY@1000 RAMIRO Glucagon () 1 mg IM .X1 PRN PRN Reason: Hypoglycemia Cefazolin Sodium () 1 gm in 50 mls @ 150 mls/hr IV Q8 [facility] Last Admin: 01/07/18 06:41 Dose: 150 mls/hr Vancomycin IV Pharmacy to Dose (1 ea/ Sodium Chloride) 500 mls @ 250 mls/hr IV PRN PRN; Protocol PRN Reason: Rx to Dose Sodium Chloride () 250 mls @ 15 mls/hr IV .[id number] PRN PRN Reason: SALINE FLUSH Dextrose/Sodium Chloride () 1,000 mls @ 100 mls/hr IV .Q10H [facility] Last Admin: 01/07/18 02:00 Dose: 100 mls/hr Vancomycin HCl 1,500 mg/ (Sodium Chloride) 530 mls @ 250 mls/hr IV Q12H [facility] Last Admin: 01/07/18 04:20 Dose: 250 mls/hr Influenza Virus Vaccine Quadrival (Fluarix/Fluzone) 0.5 ml IM .ONCE ONE Stop: 01/08/18 06:01 Magnesium Hydroxide (Milk Of Magnesia) 30 ml PO DAILY PRN PRN PRN Reason: Constipation Metoclopramide HCl (Reglan) 10 mg GT ACHS PRN PRN Reason: NAUSEA Morphine Sulfate () 10 mg IV Q4H PRN PRN PRN Reason: PAIN Last Admin: 01/06/18 15:15 Dose: 10 mg Multi-Ingredient Ointment (Aquaphor) 1 applic TOPICAL DAILY [facility]; Protocol Last Admin: 01/07/18 07:38 Dose: Not Given Ondansetron HCl (Zofran) 4 mg IV Q8H PRN PRN PRN Reason: Nausea Oxycodone HCl (Oxyir) 10 mg PO Q4H PRN PRN PRN Reason: SEVERE PAIN (6-10/10) Last Admin: 01/06/18 19:34 Dose: 10 mg Polyethylene Glycol (Miralax) 17 gm GT DAILY PRN PRN Reason: Constipation Sodium Chloride () 5 - 30 ml IV UD PRN PRN Reason: SALINE FLUSH Zolpidem Tartrate (Ambien (Generic)) 5 mg PO QHS PRN PRN PRN Reason: INSOMNIA Medical Necessity - Tobacco Use Smoking Status: Former smoker Assessment/Plan All Active Problems (Last Reviewed 01/05/18 @ 11:41 by Amberly Liu) Constipation (Acute) Chemotherapy management, encounter for (Acute) Dehydration (Acute) Central line complication (Acute) Port or reservoir infection (Acute) Infection due to Port-A-Cath (Acute) Testicular cancer (Acute) Gout (Acute) MIGUEL (obstructive sleep apnea) (Acute) Dyslipidemia (Acute) History of orchiectomy (Acute) S/P cervical spinal fusion (Acute) S/P rotator cuff repair (Acute) Squamous cell carcinoma (Acute) Patient is a 72-year-old gentleman with history of head and neck CA currently undergoing chemoradiation therapy presented with erythema and discharge from his port site 1. Acute port infection: Blood cultures obtained and as outpatient so far positive for staph aureus. Patient was started on cefazolin as well as vancomycin with consultation placed infectious disease. Patient underwent Removal of right chest port Dr. Sims the day prior. Cultures were sent and results pending 2. Head and neck CA) tongue CA) status post modified radical neck dissection on the right and excision of submandibular gland August 2017 consultation was placed the patient's oncologist Dr. Lozano 3. Gout patient is on allopurinol 4. Hypertension was previously on lisinopril however is not taking his medication for months and his blood pressure appears well-controlled 5. DVT prophylaxis SC Lovenox 6. Anemia secondary to anemia as a result of chemotherapy and patient's underlying malignancy monitoring H&H with plans to transfuse inpatient hemoglobin falls below 7 or patient becomes symptomatic Code Visit Inpatient E&M: 38859 [facility] Hosp L3
[2018-01-07 07:47] VITALS: BP 123/67; PULSE 73; RESP 18; TEMP 37.1; O2SAT 95
[2018-01-07] MEDS: Enoxaparin 40 MG/0.4 ML Syringe SC (07:49)
[2018-01-07 07:56] LABS: Bedside Glucose 149 mg/dL (70-110)
--- NOTE | 2018-01-07 08:55 | PCM.PN.SRG ---
Patient Problems: Active and Suspected Problems (Last Reviewed 01/05/18 @ 11:41 by Amberly Liu) Constipation (Acute) Chemotherapy management, encounter for (Acute) Dehydration (Acute) Central line complication (Acute) Port or reservoir infection (Acute) Infection due to Port-A-Cath (Acute) Subjective: Patient evaluated resting comfortably in bed. He denies pain at the previous right port site. - Physical Exam General: Alert, Oriented x3, Cooperative Skin: - - Right chest- packing was removed and repacked with 1/2 iodoform packing. Dry gauze placed over top. Vital Signs Temp Pulse Resp BP Pulse Ox 98.8 F 73 18 123/67 H 95 01/07/18 07:47 01/07/18 07:47 01/07/18 07:47 01/07/18 07:47 01/07/18 07:47 Oxygen Delivery Method Room Air Weight: 192 lb 15.988 oz Body Mass Index (BMI) 26.2 Intake and Output for Last 24 Hours 01/05/18 01/06/18 01/07/18 23:59 23:59 23:59 Intake Total 130 / 130 2995 / 2995 Balance 130 / 130 2995 / 2995 Laboratory Tests Past 24 Hrs 01/06/18 01/06/18 01/06/18 11:41 11:41 11:41 WBC 5.4 RBC 3.67 L Hgb 10.7 L Hct 32.5 L MCV 88.6 MCH 29.2 MCHC 32.9 RDW 14.2 RDW Differential 46.5 H Plt Count 183 MPV 8.8 Immature Gran % (Auto) 0.200 Neut % (Auto) 70.6 H Lymph % (Auto) 13.0 L [place] % (Auto) 15.8 H Eos % (Auto) 0.0 Baso % (Auto) 0.4 Absolute Neuts (auto) 3.8 Absolute Lymphs (auto) 0.70 L Total Counted Not Reportable Differential Comment Sodium 135 L Potassium 4.2 Chloride 102 Carbon Dioxide 27.0 Anion Gap 6 BUN 22 H Creatinine 0.92 Estim Creat Clear Calc 80.83 Est GFR (MDRD) Af Amer 104 Est GFR (MDRD) Non-Af 86 BUN/Creatinine Ratio 23.8 H Glucose 146 H Lactic Acid 0.6 Calcium 8.3 L Total Bilirubin 0.40 AST 24 ALT 89 H Alkaline Phosphatase 152 H Total Protein 7.1 Albumin 2.8 L Globulin 4.3 H Albumin/Globulin Ratio 0.7 L 01/07/18 01/07/18 05:25 05:25 WBC 2.9 L RBC 3.10 L Hgb 9.3 L Hct 28.3 L MCV 91.3 MCH 30.0 MCHC 32.9 RDW 13.9 RDW Differential 45.2 H Plt Count 181 MPV 8.5 Immature Gran % (Auto) 0.000 Neut % (Auto) 58.9 Lymph % (Auto) 19.3 [place] % (Auto) 20.0 H Eos % (Auto) 1.4 Baso % (Auto) 0.4 Absolute Neuts (auto) 1.7 L Absolute Lymphs (auto) 0.55 L Total Counted Not Reportable Differential Comment SCANNED Sodium 140 Potassium 4.0 Chloride 106 Carbon Dioxide 27.0 Anion Gap 7 BUN 19 H Creatinine 0.86 Estim Creat Clear Calc 86.47 Est GFR (MDRD) Af Amer 112 Est GFR (MDRD) Non-Af 93 BUN/Creatinine Ratio 22.0 H Glucose 162 H Lactic Acid Calcium 8.0 L Total Bilirubin AST ALT Alkaline Phosphatase Total Protein Albumin Globulin Albumin/Globulin Ratio POC Glucose 01/07/18 01/06/18 06:39 22:10 POC Glucose 149 H 116 H Medical Necessity - Tobacco Use Smoking Status: Former smoker Assessment/Plan All Active Problems (Last Reviewed 01/05/18 @ 11:41 by Amberly Liu) Constipation (Acute) Chemotherapy management, encounter for (Acute) Dehydration (Acute) Central line complication (Acute) Port or reservoir infection (Acute) Infection due to Port-A-Cath (Acute) Testicular cancer (Acute) Gout (Acute) MIGUEL (obstructive sleep apnea) (Acute) Dyslipidemia (Acute) History of orchiectomy (Acute) S/P cervical spinal fusion (Acute) S/P rotator cuff repair (Acute) Squamous cell carcinoma (Acute) I am following this patient in conjunction with Dr. Cramer in Dr. Sims's absence Impression: Infected right port-a-cath Continue packing changes daily until completely closed We will continue to monitor this patient Code Visit Inpatient E&M: 94929 Subs Hosp L1 - NO CHARGE; POST-OP
--- NOTE | 2018-01-07 10:00 | ECHOD_ITS ---
Reason For Study: murmur Procedure This was a 2D Doppler, Color Flow transthoracic echocardiogram. Exam performed portable in patient room. Left Ventricle Normal size and thickness. The estimated ejection fraction is 65 %. Stage 1 diastolic dysfunction. No regional wall motion abnormalities noted. Right Ventricle Normal size and thickness. Normal systolic function. Atria The left atrium is mildly enlarged. Normal right atrium. Normal atrial septum. Mitral Valve The mitral valve is structurally normal. No prolapse or stenosis seen. Tricuspid Valve Normal tricuspid valve. Trivial tricuspid valve insufficiency. Right ventricular systolic pressure estimated to be 38 mmHg. Mild pulmonary hypertension. Aortic Valve Normal aortic valve. Trisinus/trileaflet aortic valve. Pulmonic Valve Normal pulmonic valve. Great Vessels Normal aortic root. Normal arch. Normal inferior vena cava. Inferior vena cava collapse with sniff. Pericardium/Pleural No pericardial effusion. MMode/2D Measurements & Calculations LVIDd: 4.6 cm IVSd: 1.3 cm Ao root diam: 3.3 cm LVIDs: 3.0 cm LVPWd: 0.98 cm LA dimension: 3.1 cm RVDd: 2.9 cm FS: 34.4 % LAV(MOD-bp): 64.5 ml LA A4 area: 21.1 cm2 RA A4 area: 11.6 cm2 LAV(MOD-bp) Indexed: 30.8 ml/m2 LAV(MOD-sp2): 63.7 ml LAV(MOD-sp4): 64.6 ml Doppler Measurements & Calculations MV E max kenneth: 71.3 cm/sec Lat Peak E' Kenneth: 13.6 cm/sec Med Peak E' Kenneth: 11.3 cm/sec MV A max kenneth: 91.9 cm/sec E/E' lat: 5.2 E/E' med: 6.3 MV E/A: 0.78 Ao V2 max: 167.6 cm/sec LV V1 max: 116.6 cm/sec PA V2 max: 115.4 cm/sec Ao max P.2 mmHg LV V1 max P.5 mmHg TR max kenneth: 267.8 cm/sec TR max P.9 mmHg Interpretation Summary The estimated ejection fraction is 65 %. Stage 1 diastolic dysfunction. The left atrium is mildly enlarged. Trivial tricuspid valve insufficiency. Right ventricular systolic pressure estimated to be 38 mmHg. There is no comparison study available. Ordering Physician: Reji Mcgraw Referring Physician: Joe Quiroga Performed By: Ewelina Nagy RDCS, RVT
[2018-01-07] MEDS: oxyCODONE 5 MG Tablet 10 MG PO ×2 (11:14→21:08)
--- NOTE | 2018-01-07 11:47 | CON.PCM_ITS ---
Problem List (1) Infection due to Port-A-Cath Status: Acute Qualifiers: Encounter type: initial encounter Qualified Code(s): T80.219A - Unspecified infection due to central venous catheter, initial encounter Reason for Consult: mssa bacteremia Consulted by: Dr. Quiroga History of Present Illness: The patient is a 72 year old M with head and neck cancer with R chest port in place, developed soreness, swelling, and crusting about 5 days ago. Seen at cancer center 01/05, cxs sent, came back with GPC, sent to ED, Bcx x2 with MSSA. Admitted, started on vanc, cefazolin. Surgery removed port 01/06. Feeling better today. Neck is sore. No fever or chills. No new joint pain or back pain. Full ROS performed and neg except as noted above. 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) HTN (hypertension) (Chronic) Allergies/Adverse Reactions: Allergies No Known Allergies Allergy (Verified 01/06/18 11:22) Home Medications: Ambulatory Orders Medication Instructions Recorded Testosterone [Fortesta] 2 gm BC DAILY 10/07/17 Amoxicillin/Potassium Clav 1 each GT BID 01/06/18 [Augmentin 875-125 Tablet] Lactose-Reduced Food/Fiber 165 GT QHS 01/06/18 [Isosource 1.5 Matthew Tube Feed Lq] Metoclopramide [Reglan] 10 mg GT 4X/DAY PRN 01/06/18 Oxycodone HCl [Roxicodone] 5 mg GT Q6H PRN PRN 01/06/18 Polyethylene Glycol 3350 [Miralax] 17 gm GT DAILY PRN 01/06/18 - Social History SMOKING STATUS:: Former smoker Vital Signs Temp Pulse Resp BP Pulse Ox 98.8 F 73 18 123/67 H 95 01/07/18 07:47 01/07/18 07:47 01/07/18 07:47 01/07/18 07:47 01/07/18 07:47 Oxygen Delivery Method Room Air Weight: 87.543 kg Body Mass Index (BMI) 26.2 Laboratory Tests Past 24 Hrs 01/06/18 01/06/18 01/06/18 11:41 11:41 11:41 WBC 5.4 RBC 3.67 L Hgb 10.7 L Hct 32.5 L MCV 88.6 MCH 29.2 MCHC 32.9 RDW 14.2 RDW Differential 46.5 H Plt Count 183 MPV 8.8 Immature Gran % (Auto) 0.200 Neut % (Auto) 70.6 H Lymph % (Auto) 13.0 L [place] % (Auto) 15.8 H Eos % (Auto) 0.0 Baso % (Auto) 0.4 Absolute Neuts (auto) 3.8 Absolute Lymphs (auto) 0.70 L Total Counted Not Reportable Differential Comment Sodium 135 L Potassium 4.2 Chloride 102 Carbon Dioxide 27.0 Anion Gap 6 BUN 22 H Creatinine 0.92 Estim Creat Clear Calc 80.83 Est GFR (MDRD) Af Amer 104 Est GFR (MDRD) Non-Af 86 BUN/Creatinine Ratio 23.8 H Glucose 146 H Lactic Acid 0.6 Calcium 8.3 L Total Bilirubin 0.40 AST 24 ALT 89 H Alkaline Phosphatase 152 H Total Protein 7.1 Albumin 2.8 L Globulin 4.3 H Albumin/Globulin Ratio 0.7 L 01/07/18 01/07/18 05:25 05:25 WBC 2.9 L RBC 3.10 L Hgb 9.3 L Hct 28.3 L MCV 91.3 MCH 30.0 MCHC 32.9 RDW 13.9 RDW Differential 45.2 H Plt Count 181 MPV 8.5 Immature Gran % (Auto) 0.000 Neut % (Auto) 58.9 Lymph % (Auto) 19.3 [place] % (Auto) 20.0 H Eos % (Auto) 1.4 Baso % (Auto) 0.4 Absolute Neuts (auto) 1.7 L Absolute Lymphs (auto) 0.55 L Total Counted Not Reportable Differential Comment SCANNED Sodium 140 Potassium 4.0 Chloride 106 Carbon Dioxide 27.0 Anion Gap 7 BUN 19 H Creatinine 0.86 Estim Creat Clear Calc 86.47 Est GFR (MDRD) Af Amer 112 Est GFR (MDRD) Non-Af 93 BUN/Creatinine Ratio 22.0 H Glucose 162 H Lactic Acid Calcium 8.0 L Total Bilirubin AST ALT Alkaline Phosphatase Total Protein Albumin Globulin Albumin/Globulin Ratio - Other Studies Radiology: [] reviewed Other Studies: [] Route of nutrition/ use of supplements: [] Nutritional Intake: [] IV Site: [] Orozco Catheter: [] - Physical Exam General: Alert, Oriented x3, Cooperative, No apparent distress HEENT: Atraumatic, PERRLA, EOMI Neck: Supple, No Nodes, - - diffuse radiation changes Lungs: Clear to auscultation, Normal air movement Cardiovascular: Regular rate, Regular Rhythm, No murmurs Abdomen: Soft, Non Tender, Non-Distended Extremities: No edema Skin: - - redness around R chest former port site. Splinter hemorrhage x2 on L thumb, x1 on L 4th finger IV Site: Peripheral, without redness Musculoskeletal: No Tenderness to Palpation of Joints or Extremities Neurological: Cranial nerves II-XII grossly intact - Assessment/Plan Antibiotics: [] Assessment/Plan: [] Active and Suspected Problems (Last Reviewed 01/05/18 @ 11:41 by Amberly Liu) Constipation (Acute) Chemotherapy management, encounter for (Acute) Dehydration (Acute) Central line complication (Acute) Port or reservoir infection (Acute) Infection due to Port-A-Cath (Acute) MSSA port-related bacteremia - port removed 01/06. Repeat bcx today. Narrow abx to cefazolin. Concern for endocarditis with splinter hemorrhages on L 1st and 4th fingers. Ordered TTE. Likely unable to get RACHELLE due to head and neck cancer with radiation. No sign of other metastatic infection on exam. Will follow, thank you.
--- NOTE | 2018-01-07 13:29 | CASEMGMT ---
RN CM Assessment completed. See Link DC PLAN: Home w/IV antibiotics and continuation of [facility] home health. Intro role of CM to patient in room. Pt agreeable to answering questions but gives short answers and does not elaborate. States he is independent @ home. States they have everything they need. Supplies for TF through [facility]. -[facility] current with pt for home health -Pt will need IV antibiotics on dc. Discussed options for Infusion company- pt does not have preference. Pt states they can do IV antibiotics @ home. Jules CARRINGTONN RN ACM
[2018-01-07] MEDS: Cefazolin 2 GM in 0.9% Normal Saline 100 ML IV ×2 (14:21→21:08)
[2018-01-07 14:26] VITALS: BP 128/86; PULSE 72; RESP 18; TEMP 36.8; O2SAT 95
[2018-01-07] MEDS: Polyethylene Glycol 3350 17 GM PACKET GT (14:29)
[2018-01-07] MEDS: morphine 10 MG/ML Syringe IV (17:25)
[2018-01-07 20:25] VITALS: BP 135/84; PULSE 64; RESP 18; TEMP 36.8; O2SAT 95
--- NOTE | 2018-01-07 20:38 | NURSING ---
Pt's tube feed was discontinued & he normally gets it at night at home. Called pharmacy and spoke with them & this RN was going to call doctor to see about a new order for pt's tube feed for tonight, but pt refused tube feed for tonight and stated I don't even want it. Now that I can swallow and ate some dinner tonight I'm full and don't want the tube feed.
[2018-01-08 02:25] VITALS: BP 116/75; PULSE 66; RESP 18; TEMP 36.9; O2SAT 92
[2018-01-08] MEDS: 0.9% NaCl Peripheral Flush Adult/Peds IV ×2 (06:27→06:36)
[2018-01-08] MEDS: Cefazolin 2 GM in 0.9% Normal Saline 100 ML IV ×3 (06:28→21:40)
[2018-01-08] MEDS: morphine 10 MG/ML Syringe IV ×2 (06:36→21:40)
[2018-01-08 06:38] LABS: Absolute Lymphocyte Count 0.46 X10^3/ul (0.83-4.51); Basophil# 0.02 X10^3/uL; Basophil% 1.1 % (0-1); Eosinophil# 0.05 X10^3/uL; Eosinophils% 2.7 % (0-5); Hematocrit 30.2 % (40-54); Lymphocyte # 0.46 X10^3/ul (4.0); Lymphocyte % 24.9 % (19-41); Mean Corp Hgb Conc 33.1 g/gl (32-36); Mean Corpuscular Hgb 29.9 pg (27.0-32.0); Mean Corpuscular Volume 90.1 fL (80-94); Mean Platelet Vol. 8.5 fl (6.2-12.0); Monocyte# 0.36 X10^3/uL; Monocyte% 19.5 % (0-10); Neutrophil # 0.95 X10^3/uL (2.7-7.7); Neutrophil % 51.3 % (47-70); Platelet Count 194 K/mm3 (150-450); RBC Distribution Width CV 13.9 % (11.6-14.6); RBC Distribution Width SD 44.5 fl (35.1-43.9); Red Blood Count 3.35 M/mm3 (4.6-6.2); White Blood Count 1.9 K/mm3 (4.4-11.0)
--- NOTE | 2018-01-08 06:46 | NURSING ---
Pt refusing to have PEG tube flushed.
[2018-01-08 06:49] LABS: Anion Gap 7 (5-15); BUN 13 mg/dL (7-18); BUN/Creat Ratio 15.2 RATIO (10-20); Calcium,Total 8.4 mg/dL (8.5-10.1); Chloride 105 mmol/L (98-107); Creatinine, Serum 0.86 mg/dL (0.70-1.30); Differential Indicated SCAN CRITERIA MET; EST Glomerular Filtration Rate 94 mL/min (>60); Est Glom Filt Rate - Afr Amer 113 mL/min (>60); Estimated Creatinine Clearance 86.47 ml/min; Glucose 92 mg/dL (74-106); POSITIVE COUNT NO; POSITIVE DIFFERENTIAL YES; POSITIVE MORPHOLOGY NO; Potassium 4.4 mmol/L (3.5-5.1); Sodium Level 140 mmol/L (136-145)
--- NOTE | 2018-01-08 07:18 | PCM.PN.HOSP ---
Patient Problems: Active and Suspected Problems (Last Reviewed 01/05/18 @ 11:41 by Amberly Liu) Constipation (Acute) Chemotherapy management, encounter for (Acute) Dehydration (Acute) Central line complication (Acute) Port or reservoir infection (Acute) Infection due to Port-A-Cath (Acute) Subjective: Patient seen wound cultures positive for MSSA antibiotic regimen subsequently adjusted by Dr. Mcgraw. Repeat blood cultures were sent Objective: GENERAL: cooperative HEENT: Atraumatic moist oral mucosa EYES; Anicteric, Normal Conjunctiva NECK; supple, normal thyroid, RESPIRATORY: Clear to auscultation bilaterally, CARDIOVASCULAR: Regular S1 S2, GI: soft, non-tender, normoactive bowel sounds, : No Renal angle tenderness; No berumen EXTREMITIES: No edema, no clubbing, no cyanosis. MUSCULOSKELTAL: No Joint Tenderness; no muscle waisting NEURO: Awake; no lateralizing signs. SKIN: Radiation dermatitis around the neck PSYCH; Normal affect Vitals/I&O's: Vital Signs Temp Pulse Resp BP Pulse Ox 98.4 F 66 18 116/75 92 01/08/18 02:25 01/08/18 02:25 01/08/18 02:25 01/08/18 02:25 01/08/18 02:25 Oxygen Delivery Method Room Air Weight: 87.543 kg Body Mass Index (BMI) 26.2 Intake and Output for Last 24 Hours 01/06/18 01/07/18 01/08/18 23:59 23:59 23:59 Intake Total 130 / 130 4266 / 4266 768 / 768 Balance 130 / 130 4266 / 4266 768 / 768 Microbiology Past 72 Hours 01/06/18 14:10 Wound - Chest Gram Stain - Final 01/06/18 14:10 Wound - Chest Wound Culture - Preliminary Staphylococcus aureus 01/06/18 14:10 Other - Port Gram Stain - Final Laboratory Results 01/07/18 06:39: POC Glucose 149 H 01/08/18 05:22: Sodium 140, Potassium 4.4, Chloride 105, Carbon Dioxide 28.0, Anion Gap 7, BUN 13, Creatinine 0.86, Estim Creat Clear Calc 86.47, Est GFR (MDRD) Af Amer 113, Est GFR (MDRD) Non-Af 94, BUN/Creatinine Ratio 15.2, Glucose 92, Calcium 8.4 L 01/08/18 05:22: WBC 1.9 L, RBC 3.35 L, Hgb 10.0 L, Hct 30.2 L, MCV 90.1, MCH 29.9, MCHC 33.1, RDW 13.9, RDW Differential 44.5 H, Plt Count 194, MPV 8.5, Immature Gran % (Auto) 0.500, Neut % (Auto) 51.3, Lymph % (Auto) 24.9, [place] % (Auto) 19.5 H, Eos % (Auto) 2.7, Baso % (Auto) 1.1 H, Absolute Neuts (auto) 1.0 L, Absolute Lymphs (auto) 0.46 L, Total Counted Not Reportable Current Medications Acetaminophen (Tylenol) 650 mg PO Q6H PRN PRN PRN Reason: Mild Pain (scale 0-3)/T>100.7 Al Hydroxide/Mg Hydroxide (Mylanta Ii) 30 ml PO Q6H PRN PRN PRN Reason: Gastric Burning Bisacodyl (Dulcolax) 10 mg PO DAILY PRN PRN PRN Reason: Constipation Docusate Sodium (Colace) 200 mg PO BID PRN PRN PRN Reason: Constipation Enoxaparin Sodium (Lovenox) 40 mg SC DAILY@1000 RAMIRO Last Admin: 01/07/18 07:49 Dose: 40 mg Sodium Chloride () 250 mls @ 15 mls/hr IV .[id number] PRN PRN Reason: SALINE FLUSH Cefazolin Sodium 2 gm/ Sodium (Chloride) 110 mls @ 150 mls/hr IV Q8 RAMIRO Last Admin: 01/08/18 06:28 Dose: 150 mls/hr Magnesium Hydroxide (Milk Of Magnesia) 30 ml PO DAILY PRN PRN PRN Reason: Constipation Metoclopramide HCl (Reglan) 10 mg GT ACHS PRN PRN Reason: NAUSEA Morphine Sulfate () 10 mg IV Q4H PRN PRN PRN Reason: PAIN Last Admin: 01/08/18 06:36 Dose: 10 mg Multi-Ingredient Ointment (Aquaphor) 1 applic TOPICAL DAILY RAMIRO; Protocol Last Admin: 01/07/18 07:38 Dose: Not Given Ondansetron HCl (Zofran) 4 mg IV Q8H PRN PRN PRN Reason: Nausea Oxycodone HCl (Oxyir) 10 mg PO Q4H PRN PRN PRN Reason: SEVERE PAIN (6-10/10) Last Admin: 01/07/18 21:08 Dose: 10 mg Polyethylene Glycol (Miralax) 17 gm GT DAILY PRN PRN Reason: Constipation Last Admin: 01/07/18 14:29 Dose: 17 gm Sodium Chloride () 5 - 30 ml IV UD PRN PRN Reason: SALINE FLUSH Last Admin: 01/08/18 06:36 Dose: 10 ml Zolpidem Tartrate (Ambien (Generic)) 5 mg PO QHS PRN PRN PRN Reason: INSOMNIA Medical Necessity - Tobacco Use Smoking Status: Former smoker Assessment/Plan All Active Problems (Last Reviewed 01/05/18 @ 11:41 by Amberly Liu) Constipation (Acute) Chemotherapy management, encounter for (Acute) Dehydration (Acute) Central line complication (Acute) Port or reservoir infection (Acute) Infection due to Port-A-Cath (Acute) Testicular cancer (Acute) Gout (Acute) MIGUEL (obstructive sleep apnea) (Acute) Dyslipidemia (Acute) History of orchiectomy (Acute) S/P cervical spinal fusion (Acute) S/P rotator cuff repair (Acute) Squamous cell carcinoma (Acute) Patient is a 72-year-old gentleman with history of head and neck CA currently undergoing chemoradiation therapy presented with erythema and discharge from his port site 1. Acute port infection: Blood cultures obtained and as outpatient so far positive for staph aureus. Patient was started on cefazolin as well as vancomycin with consultation placed infectious disease. Patient underwent Removal of right chest port Dr. Sims on 12/06/2017. Cultures were sent and results pending. Patient blood cultures positive for MSSA antibiotics therapy subsequently adjusted by Dr. Mcgraw 2. Head and neck CA) tongue CA) status post modified radical neck dissection on the right and excision of submandibular gland August 2017 consultation was placed the patient's oncologist Dr. Lozano 3. Gout patient is on allopurinol 4. Hypertension was previously on lisinopril however is not taking his medication for months and his blood pressure appears well-controlled 5. DVT prophylaxis SC Lovenox 6. Anemia secondary to anemia as a result of chemotherapy and patient's underlying malignancy monitoring H&H with plans to transfuse inpatient hemoglobin falls below 7 or patient becomes symptomatic 7. Severe protein calorie malnutrition secondary to patient underlying malignancy: Patient receiving TF via PEG with nocturnal continuous feeds Code Visit Inpatient E&M: 03844 Subs Hosp L2
[2018-01-08 07:43] VITALS: BP 124/75; PULSE 71; RESP 18; TEMP 37.3; O2SAT 93
[2018-01-08] MEDS: Enoxaparin 40 MG/0.4 ML Syringe SC (07:45)
--- NOTE | 2018-01-08 09:18 | PN.SURG_ITS ---
Patient Problems: Active and Suspected Problems (Last Reviewed 01/05/18 @ 11:41 by Amberly Liu) Port or reservoir infection (Acute) Infection due to Port-A-Cath (Acute) Subjective: Patient evaluated sitting comfortably in bed. He denies pain/discomfort. - Physical Exam General: Alert, Oriented x3, Cooperative Skin: - - Open wound- Nontender. Granulation tissue noted. packing removed. Dry gauze replaced. Vital Signs Temp Pulse Resp BP Pulse Ox 99.1 F 71 18 124/75 H 93 01/08/18 07:43 01/08/18 07:43 01/08/18 07:43 01/08/18 07:43 01/08/18 07:43 Oxygen Delivery Method Room Air Weight: 192 lb 15.988 oz Body Mass Index (BMI) 26.2 Intake and Output for Last 24 Hours 01/06/18 01/07/18 01/08/18 23:59 23:59 23:59 Intake Total 130 / 130 4266 / 4266 798 / 798 Balance 130 / 130 4266 / 4266 798 / 798 Microbiology Past 72 Hours 01/06/18 14:10 Miscellaneous Culture - Preliminary Other - Port Staphylococcus aureus Gram Stain - Final 01/06/18 14:10 Gram Stain - Final Wound - Chest Wound Culture - Final Staphylococcus aureus Laboratory Tests Past 24 Hrs 01/08/18 01/08/18 05:22 05:22 WBC 1.9 L RBC 3.35 L Hgb 10.0 L Hct 30.2 L MCV 90.1 MCH 29.9 MCHC 33.1 RDW 13.9 RDW Differential 44.5 H Plt Count 194 MPV 8.5 Immature Gran % (Auto) 0.500 Neut % (Auto) 51.3 Lymph % (Auto) 24.9 [place] % (Auto) 19.5 H Eos % (Auto) 2.7 Baso % (Auto) 1.1 H Absolute Neuts (auto) 1.0 L Absolute Lymphs (auto) 0.46 L Total Counted Not Reportable Sodium 140 Potassium 4.4 Chloride 105 Carbon Dioxide 28.0 Anion Gap 7 BUN 13 Creatinine 0.86 Estim Creat Clear Calc 86.47 Est GFR (MDRD) Af Amer 113 Est GFR (MDRD) Non-Af 94 BUN/Creatinine Ratio 15.2 Glucose 92 Calcium 8.4 L Medical Necessity - Tobacco Use Smoking Status: Former smoker Assessment/Plan All Active Problems (Last Reviewed 01/05/18 @ 11:41 by Amberly Liu) Constipation (Acute) Chemotherapy management, encounter for (Acute) Dehydration (Acute) Central line complication (Acute) Port or reservoir infection (Acute) Infection due to Port-A-Cath (Acute) Testicular cancer (Acute) Gout (Acute) MIGUEL (obstructive sleep apnea) (Acute) Dyslipidemia (Acute) History of orchiectomy (Acute) S/P cervical spinal fusion (Acute) S/P rotator cuff repair (Acute) Squamous cell carcinoma (Acute) I am following this patient in conjunction with Dr. Cramer in Dr. Sims's absence Impression: Infected right port-a-cath Continue dressing changes daily until completely closed We will continue to monitor this patient Code Visit Inpatient E&M: 32150 Subs Hosp L1 - POST-OP; NO CHARGE
--- NOTE | 2018-01-08 10:15 | PN.ID_ITS ---
Patient Problems: Active and Suspected Problems (Last Reviewed 01/05/18 @ 11:41 by Amberly Liu) Constipation (Acute) Chemotherapy management, encounter for (Acute) Dehydration (Acute) Central line complication (Acute) Port or reservoir infection (Acute) Infection due to Port-A-Cath (Acute) Subjective: Feeling fine, no fever, no pain, no n/v/d. - Physical Exam General: Alert, Cooperative, No apparent distress Lungs: Clear to auscultation, Normal air movement Cardiovascular: Regular rate, Regular Rhythm Abdomen: Soft, Non Tender, Non-Distended Skin: - - rash improved Vital Signs Temp Pulse Resp BP Pulse Ox 99.1 F 71 18 124/75 H 93 01/08/18 07:43 01/08/18 07:43 01/08/18 07:43 01/08/18 07:43 01/08/18 07:43 Oxygen Delivery Method Room Air Weight: 87.543 kg Body Mass Index (BMI) 26.2 Intake and Output for Last 24 Hours 01/06/18 01/07/18 01/08/18 23:59 23:59 23:59 Intake Total 130 / 130 4266 / 4266 798 / 798 Balance 130 / 130 4266 / 4266 798 / 798 Microbiology Past 72 Hours 01/06/18 14:10 Miscellaneous Culture - Preliminary Other - Port Staphylococcus aureus Gram Stain - Final 01/06/18 14:10 Gram Stain - Final Wound - Chest Wound Culture - Final Staphylococcus aureus Laboratory Tests Past 24 Hrs 01/08/18 01/08/18 05:22 05:22 WBC 1.9 L RBC 3.35 L Hgb 10.0 L Hct 30.2 L MCV 90.1 MCH 29.9 MCHC 33.1 RDW 13.9 RDW Differential 44.5 H Plt Count 194 MPV 8.5 Immature Gran % (Auto) 0.500 Neut % (Auto) 51.3 Lymph % (Auto) 24.9 [place] % (Auto) 19.5 H Eos % (Auto) 2.7 Baso % (Auto) 1.1 H Absolute Neuts (auto) 1.0 L Absolute Lymphs (auto) 0.46 L Total Counted Not Reportable Sodium 140 Potassium 4.4 Chloride 105 Carbon Dioxide 28.0 Anion Gap 7 BUN 13 Creatinine 0.86 Estim Creat Clear Calc 86.47 Est GFR (MDRD) Af Amer 113 Est GFR (MDRD) Non-Af 94 BUN/Creatinine Ratio 15.2 Glucose 92 Calcium 8.4 L Medical Necessity - Tobacco Use Smoking Status: Former smoker Route of nutrition/ use of supplements: [] Nutritional Intake: [] IV Site: [] Orozco Catheter: [] - Assessment/Plan Antibiotics: [] Assessment/Plan: [] Active and Suspected Problems (Last Reviewed 01/05/18 @ 11:41 by Amberly Liu) Constipation (Acute) Chemotherapy management, encounter for (Acute) Dehydration (Acute) Central line complication (Acute) Port or reservoir infection (Acute) Infection due to Port-A-Cath (Acute) MSSA port-related bacteremia - port removed 01/06. Repeat bcx today. Narrow abx to cefazolin. Concern for endocarditis with splinter hemorrhages on L 1st and 4th fingers. TTE with no veg seen. Likely unable to get RACHELLE due to head and neck cancer with radiation. No sign of other metastatic infection on exam. Plan will be for 6-8 weeks of iv cefazolin. Ok for picc placement once bcx are neg at least 72 hours. Weekly bmp, cbc while on iv abx. Will follow
[2018-01-08 13:53] VITALS: BP 127/75; PULSE 65; RESP 18; TEMP 36.6; O2SAT 95
[2018-01-08] MEDS: Polyethylene Glycol 3350 17 GM PACKET GT (13:59)
[2018-01-08] MEDS: oxyCODONE 5 MG Tablet 10 MG PO (13:59)
[2018-01-08 20:08] VITALS: BP 129/85; PULSE 65; RESP 14; TEMP 36.4; O2SAT 96
[2018-01-09 03:31] VITALS: BP 110/57; PULSE 60; RESP 14; TEMP 36.8; O2SAT 94
[2018-01-09] MEDS: Cefazolin 2 GM in 0.9% Normal Saline 100 ML IV ×3 (05:55→21:36)
--- NOTE | 2018-01-09 07:55 | PCM.PN.SRG ---
Patient Problems: Active and Suspected Problems (Last Reviewed 01/05/18 @ 11:41 by Amberly Liu) Port or reservoir infection (Acute) Infection due to Port-A-Cath (Acute) Subjective: Patient denies any tenderness at port site still, and is feeling good and ready to go home - Physical Exam General: Alert, Cooperative, No apparent distress Lungs: Normal air movement Cardiovascular: Regular rate Skin: - - Right chest port site with only a small amount of serous drainage on the dressing no obvious purulent material, redness of the skin likely due to radiation Vital Signs Temp Pulse Resp BP Pulse Ox 98.2 F 60 14 110/57 L 94 01/09/18 03:31 01/09/18 03:31 01/09/18 03:31 01/09/18 03:31 01/09/18 03:31 Oxygen Delivery Method Room Air Weight: 192 lb 15.988 oz Body Mass Index (BMI) 26.2 Intake and Output for Last 24 Hours 01/07/18 01/08/18 01/09/18 23:59 23:59 23:59 Intake Total 4266 / 4266 1709 / 1709 951.5 / 951.5 Balance 4266 / 4266 1709 / 1709 951.5 / 951.5 Microbiology Past 72 Hours 01/06/18 14:10 Miscellaneous Culture - Final Other - Port Staphylococcus aureus Gram Stain - Final 01/06/18 11:53 Blood Culture - Preliminary Blood Culture (Wb) - No Site/Description Given No growth in 48 hours. 01/06/18 11:41 Blood Culture - Preliminary Blood Culture (Wb) - Right Hand No growth in 48 hours. 01/06/18 14:10 Gram Stain - Final Wound - Chest Wound Culture - Final Staphylococcus aureus Medical Necessity - Tobacco Use Smoking Status: Former smoker Assessment/Plan All Active Problems (Last Reviewed 01/05/18 @ 11:41 by Amberly Liu) Constipation (Acute) Chemotherapy management, encounter for (Acute) Dehydration (Acute) Central line complication (Acute) Port or reservoir infection (Acute) Infection due to Port-A-Cath (Acute) Testicular cancer (Acute) Gout (Acute) MIGUEL (obstructive sleep apnea) (Acute) Dyslipidemia (Acute) History of orchiectomy (Acute) S/P cervical spinal fusion (Acute) S/P rotator cuff repair (Acute) Squamous cell carcinoma (Acute) Continued dressing changes to port site daily, appears to be healing well. Antibiotic per ID Ana Cramer M.D. Pager: [phone] [facility] [address] [place] [address], [address] [place] [address] Office: [phone]
--- NOTE | 2018-01-09 07:56 | PN_ITS ---
Patient Problems: Active and Suspected Problems (Last Reviewed 01/05/18 @ 11:41 by Amberly Liu) Port or reservoir infection (Acute) Infection due to Port-A-Cath (Acute) Subjective: Patient seen had a relatively uneventful night blood cultures still pending Objective: GENERAL: cooperative HEENT: Atraumatic moist oral mucosa EYES; Anicteric, Normal Conjunctiva NECK; supple, normal thyroid, RESPIRATORY: Clear to auscultation bilaterally, CARDIOVASCULAR: Regular S1 S2, GI: soft, non-tender, normoactive bowel sounds, : No Renal angle tenderness; No berumen EXTREMITIES: No edema, no clubbing, no cyanosis. MUSCULOSKELTAL: No Joint Tenderness; no muscle waisting NEURO: Awake; no lateralizing signs. SKIN: Radiation dermatitis around the neck PSYCH; Normal affect Vitals/I&O's: Vital Signs Temp Pulse Resp BP Pulse Ox 98.2 F 60 14 110/57 L 94 01/09/18 03:31 01/09/18 03:31 01/09/18 03:31 01/09/18 03:31 01/09/18 03:31 Oxygen Delivery Method Room Air Weight: 87.543 kg Body Mass Index (BMI) 26.2 Intake and Output for Last 24 Hours 01/07/18 01/08/18 01/09/18 23:59 23:59 23:59 Intake Total 4266 / 4266 1709 / 1709 951.5 / 951.5 Balance 4266 / 4266 1709 / 1709 951.5 / 951.5 Microbiology Past 72 Hours 01/06/18 14:10 Other - Port Miscellaneous Culture - Final Staphylococcus aureus 01/06/18 14:10 Other - Port Gram Stain - Final 01/06/18 11:53 Blood Culture (Wb) - No Site/Description Given Blood Culture - Preliminary No growth in 48 hours. 01/06/18 11:41 Blood Culture (Wb) - Right Hand Blood Culture - Preliminary No growth in 48 hours. 01/06/18 14:10 Wound - Chest Gram Stain - Final 01/06/18 14:10 Wound - Chest Wound Culture - Final Staphylococcus aureus Current Medications Acetaminophen (Tylenol) 650 mg PO Q6H PRN PRN PRN Reason: Mild Pain (scale 0-3)/T>100.7 Al Hydroxide/Mg Hydroxide (Mylanta Ii) 30 ml PO Q6H PRN PRN PRN Reason: Gastric Burning Bisacodyl (Dulcolax) 10 mg PO DAILY PRN PRN PRN Reason: Constipation Docusate Sodium (Colace) 200 mg PO BID PRN PRN PRN Reason: Constipation Enoxaparin Sodium (Lovenox) 40 mg SC DAILY@1000 RAMIRO Last Admin: 01/08/18 07:45 Dose: 40 mg Sodium Chloride () 250 mls @ 15 mls/hr IV .[id number] PRN PRN Reason: SALINE FLUSH Cefazolin Sodium 2 gm/ Sodium (Chloride) 110 mls @ 150 mls/hr IV Q8 RAMIRO Last Admin: 01/09/18 05:55 Dose: 150 mls/hr Magnesium Hydroxide (Milk Of Magnesia) 30 ml PO DAILY PRN PRN PRN Reason: Constipation Metoclopramide HCl (Reglan) 10 mg GT ACHS PRN PRN Reason: NAUSEA Morphine Sulfate () 10 mg IV Q4H PRN PRN PRN Reason: PAIN Last Admin: 01/08/18 21:40 Dose: 10 mg Multi-Ingredient Ointment (Aquaphor) 1 applic TOPICAL DAILY RAMIRO; Protocol Last Admin: 01/08/18 07:35 Dose: Not Given Nutritional Formula (Lactose Free) (Ensure Enlive) 120 ml PO 4X/DAY [facility] Last Admin: 01/08/18 21:40 Dose: Not Given Ondansetron HCl (Zofran) 4 mg IV Q8H PRN PRN PRN Reason: Nausea Oxycodone HCl (Oxyir) 10 mg PO Q4H PRN PRN PRN Reason: SEVERE PAIN (6-10/10) Last Admin: 01/08/18 13:59 Dose: 10 mg Polyethylene Glycol (Miralax) 17 gm GT DAILY PRN PRN Reason: Constipation Last Admin: 01/08/18 13:59 Dose: 17 gm Sodium Chloride () 5 - 30 ml IV UD PRN PRN Reason: SALINE FLUSH Last Admin: 01/08/18 06:36 Dose: 10 ml Zolpidem Tartrate (Ambien (Generic)) 5 mg PO QHS PRN PRN PRN Reason: INSOMNIA Medical Necessity - Tobacco Use Smoking Status: Former smoker Assessment/Plan All Active Problems (Last Reviewed 09/24/18 @ 11:41 by Amberly Liu) Constipation (Acute) Chemotherapy management, encounter for (Acute) Dehydration (Acute) Central line complication (Acute) Port or reservoir infection (Acute) Infection due to Port-A-Cath (Acute) Testicular cancer (Acute) Gout (Acute) MIGUEL (obstructive sleep apnea) (Acute) Dyslipidemia (Acute) History of orchiectomy (Acute) S/P cervical spinal fusion (Acute) S/P rotator cuff repair (Acute) Squamous cell carcinoma (Acute) Patient is a 72-year-old gentleman with history of head and neck CA currently undergoing chemoradiation therapy presented with erythema and discharge from his port site 1. Acute port infection: Blood cultures obtained and as outpatient so far positive for staph aureus. Patient was started on cefazolin as well as vancomycin with consultation placed infectious disease. Patient underwent Removal of right chest port Dr. Sims on 12/06/2017. Cultures were sent and results pending. Patient blood cultures positive for MSSA antibiotics therapy subsequently adjusted by Dr. Mcgraw was for patient to have undergone RACHELLE however in view of radiation to the neck RACHELLE was deferred. Awaiting blood cultures and if negative patient will have a PICC line for 6-8 weeks of IV cefazolin per recommendations from ID. 2. Head and neck CA) tongue CA) status post modified radical neck dissection on the right and excision of submandibular gland August 2017 consultation was placed the patient's oncologist Dr. Lozano 3. Gout patient is on allopurinol 4. Hypertension was previously on lisinopril however is not taking his medication for months and his blood pressure appears well-controlled 5. DVT prophylaxis SC Lovenox 6. Anemia secondary to anemia as a result of chemotherapy and patient's underlying malignancy monitoring H&H with plans to transfuse inpatient hemoglobin falls below 7 or patient becomes symptomatic 7. Severe protein calorie malnutrition secondary to patient underlying malignancy: Patient receiving TF via PEG with nocturnal continuous feeds Code Visit Inpatient E&M: 45924 Subs Hosp L2
[2018-01-09 08:13] VITALS: BP 124/78; PULSE 60; RESP 16; TEMP 37.1; O2SAT 95
[2018-01-09] MEDS: oxyCODONE 5 MG Tablet 10 MG PO ×2 (08:48→12:43)
[2018-01-09] MEDS: Enoxaparin 40 MG/0.4 ML Syringe SC (08:49)
[2018-01-09] MEDS: Mineral Oil/Petrolatum Cr 1.75oz Bottle 1 APPLIC TOPICAL (08:50)
--- NOTE | 2018-01-09 10:40 | CASEMGMT ---
KRISTI GAMBLE NOTE: In to talk with pt re: out-pt IV ATB's. Pt made aware process for setting up IV ATB's can take up to 24 hrs and that the process cannot be started until BC's are back and order for IV ATB's that he will be discharged on obtained. Pt also made aware this process cannot be initiated over the weekend, so the earliest anticipated discharge date would most likely be 01/12 or 01/13. Dr Quiroga made aware and Yudith @ [facility] also made aware. Gilberto CARRINGTONN KRISTI CM
[2018-01-09 12:38] VITALS: BP 123/73; PULSE 64; RESP 16; TEMP 36.4; O2SAT 96
--- NOTE | 2018-01-09 14:23 | PCM.PN.ID ---
Patient Problems: Active and Suspected Problems (Last Reviewed 01/05/18 @ 11:41 by Amberly Liu) Port or reservoir infection (Acute) Infection due to Port-A-Cath (Acute) Subjective: Feeling well, no fever, no pain at surg site. - Physical Exam General: Alert, Cooperative, No apparent distress Lungs: Clear to auscultation, Normal air movement Cardiovascular: Regular rate, Regular Rhythm Abdomen: Soft, Non Tender, Non-Distended Skin: No rashes Vital Signs Temp Pulse Resp BP Pulse Ox 97.6 F L 64 16 123/73 H 96 01/09/18 12:38 01/09/18 12:38 01/09/18 12:38 01/09/18 12:38 01/09/18 12:38 Oxygen Delivery Method Room Air Weight: 87.543 kg Body Mass Index (BMI) 26.2 Intake and Output for Last 24 Hours 01/07/18 01/08/18 01/09/18 23:59 23:59 23:59 Intake Total 4266 / 4266 1709 / 1709 1292.5 / 1292.5 Balance 4266 / 4266 1709 / 1709 1292.5 / 1292.5 Microbiology Past 72 Hours 01/07/18 10:14 Blood Culture - Preliminary Blood Culture (Wb) - Left Hand No growth in 48 hours. 01/06/18 14:10 Miscellaneous Culture - Final Other - Port Staphylococcus aureus Gram Stain - Final 01/06/18 11:53 Blood Culture - Preliminary Blood Culture (Wb) - No Site/Description Given No growth in 48 hours. 01/06/18 11:41 Blood Culture - Preliminary Blood Culture (Wb) - Right Hand No growth in 48 hours. 01/06/18 14:10 Gram Stain - Final Wound - Chest Wound Culture - Final Staphylococcus aureus Medical Necessity - Tobacco Use Smoking Status: Former smoker Route of nutrition/ use of supplements: [] Nutritional Intake: [] IV Site: [] Orozco Catheter: [] - Assessment/Plan Antibiotics: [] Assessment/Plan: [] Active and Suspected Problems (Last Reviewed 01/05/18 @ 11:41 by Amberly Liu) Constipation (Acute) Chemotherapy management, encounter for (Acute) Dehydration (Acute) Central line complication (Acute) Port or reservoir infection (Acute) Infection due to Port-A-Cath (Acute) MSSA port-related bacteremia - port removed 01/06. Repeat bcx today. Narrow abx to cefazolin. Concern for endocarditis with splinter hemorrhages on L 1st and 4th fingers. TTE with no veg seen. Likely unable to get RACHELLE due to head and neck cancer with radiation. No sign of other metastatic infection on exam. Given good source control, rapid clearance of Bcx, and clear TTE, plan will be for 4 weeks of iv cefazolin. Will order picc. Planned stop date is 02/03/18. Weekly bmp, cbc while on iv abx. Rx written for labs and abx Will follow, d/w telehealth case manager
--- NOTE | 2018-01-09 14:26 | CASEMGMT ---
Call placed to Yudith @ [facility]. Yudith clarified that pt had services with them but it was only a one-time visit and pt is not current with them. Yudith stated they are able to accept pt for start of care on Friday01-12-18 and the earliest they could do [id number] for IV ATB's would be after 0 01-12. Script obtained from Dr Mcgraw and faxed to [facility]. Referral packet faxed to [facility] and they confirmed they received the fax. They will call back once insurance approval has been received. Gilberto CARRINGTONN RN CM
--- NOTE | 2018-01-09 16:30 | CASEMGMT ---
Call received from Yudith @ [facility] who stated they are able to do start of care 01-12-18 earlier than 1630. She stated they would prefer for start of care to be around 1400 on 01/12 so that teaching can be initiated with 1400 dose of IV ATB's. Awaiting approval from [facility] before coordination of [facility] and Infusion delivery can be arranged. KRISTI CM to follow for further discharge planning needs. Gilberto COHEN RN CM
[2018-01-09 18:12] VITALS: BP 119/74; PULSE 63; RESP 16; TEMP 36.9; O2SAT 94
[2018-01-09] MEDS: 0.9% NaCl Peripheral Flush Adult/Peds IV (20:19)
[2018-01-09 20:20] VITALS: BP 124/82; PULSE 69; RESP 18; TEMP 36.9; O2SAT 97
[2018-01-09 20:22] VITALS: RESP 18
[2018-01-10 02:25] VITALS: BP 120/85; PULSE 76; RESP 16; TEMP 36.9; O2SAT 97
--- NOTE | 2018-01-10 06:03 | PN.SURG_ITS ---
Patient Problems: Active and Suspected Problems (Last Reviewed 01/05/18 @ 11:41 by Amberly Liu) Port or reservoir infection (Acute) Infection due to Port-A-Cath (Acute) Subjective: Patient still denies any pain at his previous port site. - Physical Exam General: Alert, Oriented x3, Cooperative, No apparent distress Neck: - - Radiation changes to the skin of the right side of his neck and upper chest Skin: - - Right chest previous port site healing well mild serous drainage on gauze. Area still erythematous likely due to radiation changes. Vital Signs Temp Pulse Resp BP Pulse Ox 98.4 F 76 16 120/85 H 97 01/10/18 02:25 01/10/18 02:25 01/10/18 02:25 01/10/18 02:25 01/10/18 02:25 Oxygen Delivery Method Room Air Weight: 192 lb 15.988 oz Body Mass Index (BMI) 26.2 Intake and Output for Last 24 Hours 01/08/18 01/09/18 01/10/18 23:59 23:59 23:59 Intake Total 1709 / 1709 1483.5 / 1483.5 Balance 1709 / 1709 1483.5 / 1483.5 Microbiology Past 72 Hours 01/07/18 10:14 Blood Culture - Preliminary Blood Culture (Wb) - Left Hand No growth in 48 hours. 01/06/18 14:10 Miscellaneous Culture - Final Other - Port Staphylococcus aureus Gram Stain - Final 01/06/18 11:53 Blood Culture - Preliminary Blood Culture (Wb) - No Site/Description Given No growth in 48 hours. 01/06/18 11:41 Blood Culture - Preliminary Blood Culture (Wb) - Right Hand No growth in 48 hours. 01/06/18 14:10 Gram Stain - Final Wound - Chest Wound Culture - Final Staphylococcus aureus Medical Necessity - Tobacco Use Smoking Status: Former smoker Assessment/Plan All Active Problems (Last Reviewed 01/05/18 @ 11:41 by Amberly Liu) Constipation (Acute) Chemotherapy management, encounter for (Acute) Dehydration (Acute) Central line complication (Acute) Port or reservoir infection (Acute) Infection due to Port-A-Cath (Acute) Testicular cancer (Acute) Gout (Acute) MIGUEL (obstructive sleep apnea) (Acute) Dyslipidemia (Acute) History of orchiectomy (Acute) S/P cervical spinal fusion (Acute) S/P rotator cuff repair (Acute) Squamous cell carcinoma (Acute) Continued dressing changes to port site daily, appears to be healing well. Antibiotic per ID Follow-up with Dr. Sims in 1-2 weeks after discharge. Ana Cramer M.D. Pager: [phone] [facility] [address] [place] [address], [address] [place] [address] Office: [phone]
[2018-01-10] MEDS: Cefazolin 2 GM in 0.9% Normal Saline 100 ML IV ×3 (06:19→21:02)
[2018-01-10] MEDS: 0.9% NaCl Peripheral Flush Adult/Peds IV ×2 (06:19→16:06)
--- NOTE | 2018-01-10 06:22 | NURSING ---
Per patient Dr. Cramer did dressing change to right upper chest this am.
[2018-01-10 08:17] VITALS: BP 131/89; PULSE 70; PULSE 76; RESP 16; TEMP 36.9; O2SAT 96
--- NOTE | 2018-01-10 08:34 | PCM.PN.HOSP ---
Patient Problems: Active and Suspected Problems (Last Reviewed 01/05/18 @ 11:41 by Amberly Liu) Port or reservoir infection (Acute) Infection due to Port-A-Cath (Acute) Subjective: Patient had his PICC line placed on 01/09/2018. Had a relatively uneventful night. Objective: GENERAL: cooperative HEENT: Atraumatic moist oral mucosa EYES; Anicteric, Normal Conjunctiva NECK; supple, normal thyroid, RESPIRATORY: Clear to auscultation bilaterally, CARDIOVASCULAR: Regular S1 S2, GI: soft, non-tender, normoactive bowel sounds, : No Renal angle tenderness; No berumen EXTREMITIES: No edema, no clubbing, no cyanosis. MUSCULOSKELTAL: No Joint Tenderness; no muscle waisting NEURO: Awake; no lateralizing signs. SKIN: Radiation dermatitis around the neck PSYCH; Normal affect Vitals/I&O's: Vital Signs Temp Pulse Resp BP Pulse Ox 98.5 F 76 16 131/89 H 96 01/10/18 08:17 01/10/18 08:17 01/10/18 08:17 01/10/18 08:17 01/10/18 08:17 Oxygen Delivery Method Room Air Weight: 87.543 kg Body Mass Index (BMI) 26.2 Intake and Output for Last 24 Hours 01/08/18 01/09/18 01/10/18 23:59 23:59 23:59 Intake Total 1709 / 1709 1483.5 / 1483.5 275 / 275 Balance 1709 / 1709 1483.5 / 1483.5 275 / 275 Microbiology Past 72 Hours 01/07/18 10:14 Blood Culture (Wb) - Left Hand Blood Culture - Preliminary No growth in 48 hours. 01/06/18 14:10 Other - Port Miscellaneous Culture - Final Staphylococcus aureus 01/06/18 14:10 Other - Port Gram Stain - Final 01/06/18 11:53 Blood Culture (Wb) - No Site/Description Given Blood Culture - Preliminary No growth in 48 hours. 01/06/18 11:41 Blood Culture (Wb) - Right Hand Blood Culture - Preliminary No growth in 48 hours. 01/06/18 14:10 Wound - Chest Gram Stain - Final 01/06/18 14:10 Wound - Chest Wound Culture - Final Staphylococcus aureus Current Medications Acetaminophen (Tylenol) 650 mg PO Q6H PRN PRN PRN Reason: Mild Pain (scale 0-3)/T>100.7 Al Hydroxide/Mg Hydroxide (Mylanta Ii) 30 ml PO Q6H PRN PRN PRN Reason: Gastric Burning Bisacodyl (Dulcolax) 10 mg PO DAILY PRN PRN PRN Reason: Constipation Docusate Sodium (Colace) 200 mg PO BID PRN PRN PRN Reason: Constipation Enoxaparin Sodium (Lovenox) 40 mg SC DAILY@1000 RAMIRO Last Admin: 01/09/18 08:49 Dose: 40 mg Sodium Chloride () 250 mls @ 15 mls/hr IV .[id number] PRN PRN Reason: SALINE FLUSH Cefazolin Sodium 2 gm/ Sodium (Chloride) 110 mls @ 150 mls/hr IV Q8 RAMIRO Last Admin: 01/10/18 06:19 Dose: 150 mls/hr Magnesium Hydroxide (Milk Of Magnesia) 30 ml PO DAILY PRN PRN PRN Reason: Constipation Metoclopramide HCl (Reglan) 10 mg GT ACHS PRN PRN Reason: NAUSEA Morphine Sulfate () 10 mg IV Q4H PRN PRN PRN Reason: PAIN Last Admin: 01/08/18 21:40 Dose: 10 mg Multi-Ingredient Ointment (Aquaphor) 1 applic TOPICAL DAILY [facility]; Protocol Last Admin: 01/09/18 08:50 Dose: 1 applicatio Nutritional Formula (Lactose Free) (Ensure Enlive) 120 ml PO 4X/DAY RAMIRO Last Admin: 01/09/18 21:36 Dose: 120 ml Ondansetron HCl (Zofran) 4 mg IV Q8H PRN PRN PRN Reason: Nausea Oxycodone HCl (Oxyir) 10 mg PO Q4H PRN PRN PRN Reason: SEVERE PAIN (6-10/10) Last Admin: 01/09/18 12:43 Dose: 10 mg Polyethylene Glycol (Miralax) 17 gm GT DAILY PRN PRN Reason: Constipation Last Admin: 01/08/18 13:59 Dose: 17 gm Sodium Chloride () 5 - 30 ml IV UD PRN PRN Reason: SALINE FLUSH Last Admin: 01/10/18 06:19 Dose: 10 ml Zolpidem Tartrate (Ambien (Generic)) 5 mg PO QHS PRN PRN PRN Reason: INSOMNIA Medical Necessity - Tobacco Use Smoking Status: Former smoker Assessment/Plan All Active Problems (Last Reviewed 01/05/18 @ 11:41 by Amberly Liu) Constipation (Acute) Chemotherapy management, encounter for (Acute) Dehydration (Acute) Central line complication (Acute) Port or reservoir infection (Acute) Infection due to Port-A-Cath (Acute) Testicular cancer (Acute) Gout (Acute) MIGUEL (obstructive sleep apnea) (Acute) Dyslipidemia (Acute) History of orchiectomy (Acute) S/P cervical spinal fusion (Acute) S/P rotator cuff repair (Acute) Squamous cell carcinoma (Acute) Patient is a 72-year-old gentleman with history of head and neck CA currently undergoing chemoradiation therapy presented with erythema and discharge from his port site 1. Acute port infection: Blood cultures obtained and as outpatient so far positive for staph aureus. Patient was started on cefazolin as well as vancomycin with consultation placed infectious disease. Patient underwent Removal of right chest port Dr. Sims on 12/06/2017. Cultures were sent and results pending. Patient blood cultures positive for MSSA antibiotics therapy subsequently adjusted by Dr. Mcgraw was for patient to have undergone RACHELLE however in view of radiation to the neck RACHELLE was deferred. PICC line was placed on 01/09/2018 plan is to continue cefazolin until 02/03/2018 2. Head and neck CA) tongue CA) status post modified radical neck dissection on the right and excision of submandibular gland August 2017 consultation was placed the patient's oncologist Dr. Lozano 3. Gout patient is on allopurinol 4. Hypertension was previously on lisinopril however is not taking his medication for months and his blood pressure appears well-controlled 5. DVT prophylaxis SC Lovenox 6. Anemia secondary to anemia as a result of chemotherapy and patient's underlying malignancy monitoring H&H with plans to transfuse inpatient hemoglobin falls below 7 or patient becomes symptomatic 7. Severe protein calorie malnutrition secondary to patient underlying malignancy: Patient receiving TF via PEG with nocturnal continuous feeds Code Visit Inpatient E&M: 67562 Subs Hosp L2
[2018-01-10] MEDS: Enoxaparin 40 MG/0.4 ML Syringe SC (09:35)
[2018-01-10 14:48] VITALS: BP 120/75; PULSE 76; PULSE 80; RESP 16; TEMP 36.4; O2SAT 95
[2018-01-10] MEDS: Ondansetron 4 MG/2 ML Vial IV (16:06)
[2018-01-10 20:57] VITALS: BP 112/77; PULSE 79; RESP 16; TEMP 36.7; O2SAT 99
[2018-01-11 02:02] VITALS: BP 117/85; PULSE 81; RESP 16; TEMP 36.8; O2SAT 97
[2018-01-11] MEDS: morphine 10 MG/ML Syringe IV (02:14)
[2018-01-11] MEDS: Cefazolin 2 GM in 0.9% Normal Saline 100 ML IV ×3 (06:08→21:06)
--- NOTE | 2018-01-11 07:29 | PN_ITS ---
Patient Problems: Active and Suspected Problems (Last Reviewed 01/05/18 @ 11:41 by Amberly Liu) Port or reservoir infection (Acute) Infection due to Port-A-Cath (Acute) Subjective: Plan is for patient to be discharged home either on 01/12 or 01/13/18 after case management arranges for outpatient IV antibiotics Objective: GENERAL: cooperative HEENT: Atraumatic moist oral mucosa EYES; Anicteric, Normal Conjunctiva NECK; supple, normal thyroid, RESPIRATORY: Clear to auscultation bilaterally, CARDIOVASCULAR: Regular S1 S2, GI: soft, non-tender, normoactive bowel sounds, : No Renal angle tenderness; No berumen EXTREMITIES: No edema, no clubbing, no cyanosis. MUSCULOSKELTAL: No Joint Tenderness; no muscle waisting NEURO: Awake; no lateralizing signs. SKIN: Radiation dermatitis around the neck PSYCH; Normal affect Vitals/I&O's: Vital Signs Temp Pulse Resp BP Pulse Ox 98.3 F 81 16 117/85 H 97 01/11/18 02:02 01/11/18 02:02 01/11/18 02:02 01/11/18 02:02 01/11/18 02:02 Oxygen Delivery Method Room Air Weight: 87.543 kg Body Mass Index (BMI) 26.2 Intake and Output for Last 24 Hours 01/09/18 01/10/18 01/11/18 23:59 23:59 23:59 Intake Total 1483.5 / 1483.5 1932 107 / 107 Balance 1483.5 / 1483.5 1932 107 / 107 Microbiology Past 72 Hours 01/08/18 09:40 Blood Culture (Wb) - Left Hand Blood Culture - Preliminary No growth in 48 hours. 01/07/18 10:14 Blood Culture (Wb) - Left Hand Blood Culture - Preliminary No growth in 48 hours. 01/06/18 14:10 Other - Port Miscellaneous Culture - Final Staphylococcus aureus 01/06/18 14:10 Other - Port Gram Stain - Final 01/06/18 11:53 Blood Culture (Wb) - No Site/Description Given Blood Culture - Preliminary No growth in 48 hours. 01/06/18 11:41 Blood Culture (Wb) - Right Hand Blood Culture - Preliminary No growth in 48 hours. 01/06/18 14:10 Wound - Chest Gram Stain - Final 01/06/18 14:10 Wound - Chest Wound Culture - Final Staphylococcus aureus Current Medications Acetaminophen (Tylenol) 650 mg PO Q6H PRN PRN PRN Reason: Mild Pain (scale 0-3)/T>100.7 Al Hydroxide/Mg Hydroxide (Mylanta Ii) 30 ml PO Q6H PRN PRN PRN Reason: Gastric Burning Bisacodyl (Dulcolax) 10 mg PO DAILY PRN PRN PRN Reason: Constipation Docusate Sodium (Colace) 200 mg PO BID PRN PRN PRN Reason: Constipation Enoxaparin Sodium (Lovenox) 40 mg SC DAILY@1000 RAMIRO Last Admin: 01/10/18 09:35 Dose: 40 mg Sodium Chloride () 250 mls @ 15 mls/hr IV .[id number] PRN PRN Reason: SALINE FLUSH Cefazolin Sodium 2 gm/ Sodium (Chloride) 110 mls @ 150 mls/hr IV Q8 RAMIRO Last Admin: 01/11/18 06:08 Dose: 150 mls/hr Magnesium Hydroxide (Milk Of Magnesia) 30 ml PO DAILY PRN PRN PRN Reason: Constipation Metoclopramide HCl (Reglan) 10 mg GT ACHS PRN PRN Reason: NAUSEA Morphine Sulfate () 4 - 6 mg IV Q4H PRN PRN PRN Reason: PAIN Multi-Ingredient Ointment (Aquaphor) 1 applic TOPICAL DAILY [facility]; Protocol Last Admin: 01/10/18 09:44 Dose: Not Given Nutritional Formula (Lactose Free) (Ensure Enlive) 120 ml PO 4X/DAY [facility] Last Admin: 01/10/18 23:00 Dose: 120 ml Ondansetron HCl (Zofran) 4 mg IV Q8H PRN PRN PRN Reason: Nausea Last Admin: 01/10/18 16:06 Dose: 4 mg Oxycodone HCl (Oxyir) 10 mg PO Q4H PRN PRN PRN Reason: SEVERE PAIN (6-10/10) Last Admin: 01/09/18 12:43 Dose: 10 mg Polyethylene Glycol (Miralax) 17 gm GT DAILY PRN PRN Reason: Constipation Last Admin: 01/08/18 13:59 Dose: 17 gm Sodium Chloride () 5 - 30 ml IV UD PRN PRN Reason: SALINE FLUSH Last Admin: 01/10/18 16:06 Dose: 20 ml Zolpidem Tartrate (Ambien (Generic)) 5 mg PO QHS PRN PRN PRN Reason: INSOMNIA Medical Necessity - Tobacco Use Smoking Status: Former smoker Assessment/Plan All Active Problems (Last Reviewed 01/05/18 @ 11:41 by Amberly Liu) Constipation (Acute) Chemotherapy management, encounter for (Acute) Dehydration (Acute) Central line complication (Acute) Port or reservoir infection (Acute) Infection due to Port-A-Cath (Acute) Testicular cancer (Acute) Gout (Acute) MIGUEL (obstructive sleep apnea) (Acute) Dyslipidemia (Acute) History of orchiectomy (Acute) S/P cervical spinal fusion (Acute) S/P rotator cuff repair (Acute) Squamous cell carcinoma (Acute) Patient is a 72-year-old gentleman with history of head and neck CA currently undergoing chemoradiation therapy presented with erythema and discharge from his port site 1. Acute port infection: Blood cultures obtained and as outpatient so far positive for staph aureus. Patient was started on cefazolin as well as vancomycin with consultation placed infectious disease. Patient underwent Removal of right chest port Dr. Sims on 12/06/2017. Cultures were sent and results pending. Patient blood cultures positive for MSSA antibiotics therapy subsequently adjusted by Dr. Mcgraw was for patient to have undergone RACHELLE however in view of radiation to the neck RACHELLE was deferred. PICC line was placed on 01/09/2018 plan is to continue cefazolin until 02/03/2018 2. Head and neck CA) tongue CA) status post modified radical neck dissection on the right and excision of submandibular gland August 2017 consultation was placed the patient's oncologist Dr. Lozano 3. Gout patient is on allopurinol 4. Hypertension was previously on lisinopril however is not taking his medication for months and his blood pressure appears well-controlled 5. DVT prophylaxis SC Lovenox 6. Anemia secondary to anemia as a result of chemotherapy and patient's underlying malignancy monitoring H&H with plans to transfuse inpatient hemoglobin falls below 7 or patient becomes symptomatic 7. Severe protein calorie malnutrition secondary to patient underlying malignancy: Patient receiving TF via PEG with nocturnal continuous feeds Code Visit Inpatient E&M: 99934 Subs Hosp L2
--- NOTE | 2018-01-11 07:43 | PCM.PN.SRG ---
Patient Problems: Active and Suspected Problems (Last Reviewed 01/05/18 @ 11:41 by Amberly Liu) Port or reservoir infection (Acute) Infection due to Port-A-Cath (Acute) Subjective: Patient is doing well has no complaints - Physical Exam General: Alert, Oriented x3, Cooperative, No apparent distress Neck: - - Radiation changes to the right side of the neck Skin: - - Previous port site healing well, no drainage on dressing all day yesterday, redressed Vital Signs Temp Pulse Resp BP Pulse Ox 98.3 F 81 16 117/85 H 97 01/11/18 02:02 01/11/18 02:02 01/11/18 02:02 01/11/18 02:02 01/11/18 02:02 Oxygen Delivery Method Room Air Weight: 192 lb 15.988 oz Body Mass Index (BMI) 26.2 Intake and Output for Last 24 Hours 01/09/18 01/10/18 01/11/18 23:59 23:59 23:59 Intake Total 1483.5 / 1483.5 1932 / 1933 107 / 107 Balance 1483.5 / 1483.5 1932 / 1933 107 / 107 Microbiology Past 72 Hours 01/08/18 09:40 Blood Culture - Preliminary Blood Culture (Wb) - Left Hand No growth in 48 hours. 01/07/18 10:14 Blood Culture - Preliminary Blood Culture (Wb) - Left Hand No growth in 48 hours. 01/06/18 14:10 Miscellaneous Culture - Final Other - Port Staphylococcus aureus Gram Stain - Final 01/06/18 11:53 Blood Culture - Preliminary Blood Culture (Wb) - No Site/Description Given No growth in 48 hours. 01/06/18 11:41 Blood Culture - Preliminary Blood Culture (Wb) - Right Hand No growth in 48 hours. 01/06/18 14:10 Gram Stain - Final Wound - Chest Wound Culture - Final Staphylococcus aureus Medical Necessity - Tobacco Use Smoking Status: Former smoker Assessment/Plan All Active Problems (Last Reviewed 01/05/18 @ 11:41 by Amberly Liu) Constipation (Acute) Chemotherapy management, encounter for (Acute) Dehydration (Acute) Central line complication (Acute) Port or reservoir infection (Acute) Infection due to Port-A-Cath (Acute) Testicular cancer (Acute) Gout (Acute) MIGUEL (obstructive sleep apnea) (Acute) Dyslipidemia (Acute) History of orchiectomy (Acute) S/P cervical spinal fusion (Acute) S/P rotator cuff repair (Acute) Squamous cell carcinoma (Acute) Continued dressing changes to port site daily, appears to be healing well. If no drainage on dressing tomorrow patient may not need to have it dressed daily. Antibiotic per ID Follow-up with Dr. Sims in 1-2 weeks after discharge. Ana Cramer M.D. Pager: [phone] [facility] [address] [place] [address], [address] [place] [address] Office: [phone]
[2018-01-11 08:33] VITALS: BP 111/79; PULSE 75; RESP 16; TEMP 36.7; O2SAT 99
[2018-01-11] MEDS: 0.9% NaCl Peripheral Flush Adult/Peds IV ×2 (08:40→11:55)
[2018-01-11 08:46] LABS: Hematocrit 33.2 % (40-54); Hemoglobin 11.1 g/dl (13.0-16.5); Mean Corp Hgb Conc 33.4 g/gl (32-36); Mean Corpuscular Hgb 29.4 pg (27.0-32.0); Mean Corpuscular Volume 87.8 fL (80-94); Mean Platelet Vol. 7.8 fl (6.2-12.0); Platelet Count 184 K/mm3 (150-450); RBC Distribution Width CV 14.2 % (11.6-14.6); RBC Distribution Width SD 45.1 fl (35.1-43.9); Red Blood Count 3.78 M/mm3 (4.6-6.2); White Blood Count 1.5 K/mm3 (4.4-11.0)
[2018-01-11 08:48] LABS: Scan Indicated on CBC? Y/N NO
[2018-01-11 08:59] LABS: Anion Gap 6 (5-15); BUN 11 mg/dL (7-18); BUN/Creat Ratio 13.3 RATIO (10-20); Calcium,Total 8.5 mg/dL (8.5-10.1); Chloride 103 mmol/L (98-107); Creatinine, Serum 0.83 mg/dL (0.70-1.30); EST Glomerular Filtration Rate 97 mL/min (>60); Est Glom Filt Rate - Afr Amer 118 mL/min (>60); Glucose 87 mg/dL (74-106); Magnesium 2.2 mg/dL (1.6-2.6); Potassium 4.1 mmol/L (3.5-5.1); Sodium Level 139 mmol/L (136-145)
[2018-01-11] MEDS: Enoxaparin 40 MG/0.4 ML Syringe SC (09:19)
[2018-01-11] MEDS: Ondansetron 4 MG/2 ML Vial IV (11:54)
[2018-01-11 13:31] VITALS: BP 121/78; PULSE 80; PULSE 81; RESP 16; TEMP 36.4; O2SAT 95
[2018-01-11 18:48] VITALS: BP 109/76; PULSE 80; RESP 18; TEMP 36.5; O2SAT 95
[2018-01-11 20:56] VITALS: BP 112/84; PULSE 73; RESP 18; TEMP 36.4; O2SAT 97
[2018-01-12 05:45] VITALS: BP 115/72; PULSE 75; RESP 16; TEMP 36.7; O2SAT 96
[2018-01-12] MEDS: 0.9% NaCl Peripheral Flush Adult/Peds IV (05:47)
[2018-01-12] MEDS: Cefazolin 2 GM in 0.9% Normal Saline 100 ML IV (05:47)
[2018-01-12 05:57] LABS: Hematocrit 32.6 % (40-54); Mean Corp Hgb Conc 33.7 g/gl (32-36); Mean Corpuscular Hgb 30.1 pg (27.0-32.0); Mean Corpuscular Volume 89.1 fL (80-94); Mean Platelet Vol. 7.9 fl (6.2-12.0); Platelet Count 253 K/mm3 (150-450); RBC Distribution Width CV 13.8 % (11.6-14.6); RBC Distribution Width SD 43.4 fl (35.1-43.9); Red Blood Count 3.66 M/mm3 (4.6-6.2); White Blood Count 1.7 K/mm3 (4.4-11.0)
[2018-01-12 06:06] LABS: Anion Gap 8 (5-15); BUN 11 mg/dL (7-18); BUN/Creat Ratio 14.5 RATIO (10-20); Calcium,Total 8.7 mg/dL (8.5-10.1); Chloride 103 mmol/L (98-107); Creatinine, Serum 0.76 mg/dL (0.70-1.30); EST Glomerular Filtration Rate 108 mL/min (>60); Est Glom Filt Rate - Afr Amer 130 mL/min (>60); Estimated Creatinine Clearance 74.37 ml/min; Glucose 90 mg/dL (74-106); Potassium 4.2 mmol/L (3.5-5.1); Sodium Level 141 mmol/L (136-145)
[2018-01-12 06:21] LABS: Scan Indicated on CBC? Y/N NO
[2018-01-12 07:18] VITALS: BP 121/88; PULSE 68; RESP 14; TEMP 36.7; O2SAT 96
--- NOTE | 2018-01-12 07:22 | PCM.PN.SRG ---
Patient Problems: Active and Suspected Problems (Last Reviewed 01/05/18 @ 11:41 by Amberly Liu) Port or reservoir infection (Acute) Infection due to Port-A-Cath (Acute) - Physical Exam Vital Signs Temp Pulse Resp BP Pulse Ox 98.1 F 75 16 115/72 96 01/12/18 05:45 01/12/18 05:45 01/12/18 05:45 01/12/18 05:45 01/12/18 05:45 Oxygen Delivery Method Room Air Weight: 192 lb 15.988 oz Body Mass Index (BMI) 26.2 Intake and Output for Last 24 Hours 01/10/18 01/11/18 01/12/18 23:59 23:59 23:59 Intake Total 1932 / 1932 2833 / 2833 513 / 513 Balance 1932 2833 / 2833 513 / 513 Microbiology Past 72 Hours 01/06/18 11:41 Blood Culture - Final Blood Culture (Wb) - Right Hand No growth in 5 days. 01/06/18 11:53 Blood Culture - Final Blood Culture (Wb) - No Site/Description Given No growth in 5 days. 01/09/18 12:30 Blood Culture - Preliminary Blood Culture (Wb) - Left Hand No growth in 48 hours. 01/08/18 09:40 Blood Culture - Preliminary Blood Culture (Wb) - Left Hand No growth in 48 hours. 01/07/18 10:14 Blood Culture - Preliminary Blood Culture (Wb) - Left Hand No growth in 48 hours. 01/06/18 14:10 Miscellaneous Culture - Final Other - Port Staphylococcus aureus Gram Stain - Final Laboratory Tests Past 24 Hrs 01/11/18 01/11/18 01/12/18 08:40 08:40 05:40 WBC 1.5 L 1.7 L RBC 3.78 L 3.66 L Hgb 11.1 L 11.0 L Hct 33.2 L 32.6 L MCV 87.8 89.1 MCH 29.4 30.1 MCHC 33.4 33.7 RDW 14.2 13.8 RDW Differential 45.1 H 43.4 Plt Count 184 253 MPV 7.8 7.9 Sodium 139 Potassium 4.1 Chloride 103 Carbon Dioxide 30.0 Anion Gap 6 BUN 11 Creatinine 0.83 Estim Creat Clear Calc 89.60 Est GFR (MDRD) Af Amer 118 Est GFR (MDRD) Non-Af 97 BUN/Creatinine Ratio 13.3 Glucose 87 Calcium 8.5 Magnesium 2.2 01/12/18 05:40 WBC RBC Hgb Hct MCV MCH MCHC RDW RDW Differential Plt Count MPV Sodium 141 Potassium 4.2 Chloride 103 Carbon Dioxide 30.0 Anion Gap 8 BUN 11 Creatinine 0.76 Estim Creat Clear Calc 74.37 Est GFR (MDRD) Af Amer 130 Est GFR (MDRD) Non-Af 108 BUN/Creatinine Ratio 14.5 Glucose 90 Calcium 8.7 Magnesium Medical Necessity - Tobacco Use Smoking Status: Former smoker Assessment/Plan All Active Problems (Last Reviewed 01/05/18 @ 11:41 by Amberly Liu) Constipation (Acute) Chemotherapy management, encounter for (Acute) Dehydration (Acute) Central line complication (Acute) Port or reservoir infection (Acute) Infection due to Port-A-Cath (Acute) Testicular cancer (Acute) Gout (Acute) MIGUEL (obstructive sleep apnea) (Acute) Dyslipidemia (Acute) History of orchiectomy (Acute) S/P cervical spinal fusion (Acute) S/P rotator cuff repair (Acute) Squamous cell carcinoma (Acute)
--- NOTE | 2018-01-12 08:14 | PCM.PN.SRG ---
Patient Problems: Active and Suspected Problems (Last Reviewed 01/05/18 @ 11:41 by Amberly Liu) Port or reservoir infection (Acute) Infection due to Port-A-Cath (Acute) Subjective: Patient has no complaints. - Physical Exam General: Alert, Oriented x3 Neck: - - Patient's right chest port site is clean with minimal erythema. Minimal purulent drainage. Lungs: Normal air movement Vital Signs Temp Pulse Resp BP Pulse Ox 98.1 F 68 14 121/88 H 96 01/12/18 07:18 01/12/18 07:18 01/12/18 07:18 01/12/18 07:18 01/12/18 07:18 Oxygen Delivery Method Room Air Weight: 192 lb 15.988 oz Body Mass Index (BMI) 26.2 Intake and Output for Last 24 Hours 01/10/18 01/11/18 01/12/18 23:59 23:59 23:59 Intake Total 3 / 1933 2833 / 2833 513 / 513 Balance 1932 / 1933 2833 / 2833 513 / 513 Microbiology Past 72 Hours 01/06/18 11:41 Blood Culture - Final Blood Culture (Wb) - Right Hand No growth in 5 days. 01/06/18 11:53 Blood Culture - Final Blood Culture (Wb) - No Site/Description Given No growth in 5 days. 01/09/18 12:30 Blood Culture - Preliminary Blood Culture (Wb) - Left Hand No growth in 48 hours. 01/08/18 09:40 Blood Culture - Preliminary Blood Culture (Wb) - Left Hand No growth in 48 hours. 01/07/18 10:14 Blood Culture - Preliminary Blood Culture (Wb) - Left Hand No growth in 48 hours. 01/06/18 14:10 Miscellaneous Culture - Final Other - Port Staphylococcus aureus Gram Stain - Final Laboratory Tests Past 24 Hrs 01/11/18 01/11/18 01/12/18 08:40 08:40 05:40 WBC 1.5 L 1.7 L RBC 3.78 L 3.66 L Hgb 11.1 L 11.0 L Hct 33.2 L 32.6 L MCV 87.8 89.1 MCH 29.4 30.1 MCHC 33.4 33.7 RDW 14.2 13.8 RDW Differential 45.1 H 43.4 Plt Count 184 253 MPV 7.8 7.9 Sodium 139 Potassium 4.1 Chloride 103 Carbon Dioxide 30.0 Anion Gap 6 BUN 11 Creatinine 0.83 Estim Creat Clear Calc 89.60 Est GFR (MDRD) Af Amer 118 Est GFR (MDRD) Non-Af 97 BUN/Creatinine Ratio 13.3 Glucose 87 Calcium 8.5 Magnesium 2.2 01/12/18 05:40 WBC RBC Hgb Hct MCV MCH MCHC RDW RDW Differential Plt Count MPV Sodium 141 Potassium 4.2 Chloride 103 Carbon Dioxide 30.0 Anion Gap 8 BUN 11 Creatinine 0.76 Estim Creat Clear Calc 74.37 Est GFR (MDRD) Af Amer 130 Est GFR (MDRD) Non-Af 108 BUN/Creatinine Ratio 14.5 Glucose 90 Calcium 8.7 Magnesium Medical Necessity - Tobacco Use Smoking Status: Former smoker Assessment/Plan All Active Problems (Last Reviewed 01/05/18 @ 11:41 by Amberly Liu) Constipation (Acute) Chemotherapy management, encounter for (Acute) Dehydration (Acute) Central line complication (Acute) Port or reservoir infection (Acute) Infection due to Port-A-Cath (Acute) Testicular cancer (Acute) Gout (Acute) MIGUEL (obstructive sleep apnea) (Acute) Dyslipidemia (Acute) History of orchiectomy (Acute) S/P cervical spinal fusion (Acute) S/P rotator cuff repair (Acute) Squamous cell carcinoma (Acute) 72-year-old male with right chest port infection and bacteremia 1. Patient seems to be doing well. He is not packing his wound anymore and there is minimal erythema or drainage. Continue antibiotics. Continue dressing changes. 2. Patient likely to be discharged soon. I asked him to follow-up with me if he is having any increased pain or purulence and I would reopen the pocket. Andrew Sims MD Pager: [facility] [address] [place] [address], [address] [place] [address] Office:
--- NOTE | 2018-01-12 08:15 | PN_ITS ---
Patient Problems: Active and Suspected Problems (Last Reviewed 01/05/18 @ 11:41 by Amberly Liu) Port or reservoir infection (Acute) Infection due to Port-A-Cath (Acute) Subjective: Patient was seen and examined. Denies any new complaint. Denies any fever or chills or nausea or vomiting. PICC line in place, possible discharge today if case management confirms that IV antibiotics for home is ready. Vitals/I&O's: Vital Signs Temp Pulse Resp BP Pulse Ox 98.1 F 68 14 121/88 H 96 01/12/18 07:18 01/12/18 07:18 01/12/18 07:18 01/12/18 07:18 01/12/18 07:18 Oxygen Delivery Method Room Air Weight: 87.543 kg Body Mass Index (BMI) 26.2 Intake and Output for Last 24 Hours 01/10/18 01/11/18 01/12/18 23:59 23:59 23:59 Intake Total 1932 / 1932 2833 / 2833 513 / 513 Balance 1932 2833 / 2833 513 / 513 General: Alert, Oriented x3, Cooperative, No apparent distress HEENT: Atraumatic, PERRLA, EOMI, Normocephalic Oral: Moist Mucosa Neck: Supple, - - Radiation therapy changes with paleness of the skin noted around the anterior lateral aspect of the neck, seen over the right upper thorax, clean, dry Lungs: Clear to auscultation, Normal air movement Cardiovascular: Regular rate, No murmurs Abdomen: Bowel Sounds Present, Soft, Non Tender, Non-Distended, No Hepato- splenomegaly Extremities: No edema Skin: No rashes, No breakdown Musculoskeletal: No Tenderness to Palpation of Joints or Extremities Lymphatic: No Cervical, Supraclavicular, or Inguinal Adenopathy Neurological: Cranial nerves II-XII grossly intact, Neuro grossly intact Psych/Mental Status: Normal Affect, Appropriate Microbiology Past 72 Hours 01/06/18 11:41 Blood Culture (Wb) - Right Hand Blood Culture - Final No growth in 5 days. 01/06/18 11:53 Blood Culture (Wb) - No Site/Description Given Blood Culture - Final No growth in 5 days. 01/09/18 12:30 Blood Culture (Wb) - Left Hand Blood Culture - Preliminary No growth in 48 hours. 01/08/18 09:40 Blood Culture (Wb) - Left Hand Blood Culture - Preliminary No growth in 48 hours. 01/07/18 10:14 Blood Culture (Wb) - Left Hand Blood Culture - Preliminary No growth in 48 hours. 01/06/18 14:10 Other - Port Miscellaneous Culture - Final Staphylococcus aureus 01/06/18 14:10 Other - Port Gram Stain - Final Laboratory Results 01/11/18 08:40: WBC 1.5 L, RBC 3.78 L, Hgb 11.1 L, Hct 33.2 L, MCV 87.8, MCH 29.4, MCHC 33.4, RDW 14.2, RDW Differential 45.1 H, Plt Count 184, MPV 7.8 01/11/18 08:40: Sodium 139, Potassium 4.1, Chloride 103, Carbon Dioxide 30.0, Anion Gap 6, BUN 11, Creatinine 0.83, Estim Creat Clear Calc 89.60, Est GFR (MDRD) Af Amer 118, Est GFR (MDRD) Non-Af 97, BUN/Creatinine Ratio 13.3, Glucose 87, Calcium 8.5, Magnesium 2.2 01/12/18 05:40: WBC 1.7 L, RBC 3.66 L, Hgb 11.0 L, Hct 32.6 L, MCV 89.1, MCH 30.1, MCHC 33.7, RDW 13.8, RDW Differential 43.4, Plt Count 253, MPV 7.9 01/12/18 05:40: Sodium 141, Potassium 4.2, Chloride 103, Carbon Dioxide 30.0, Anion Gap 8, BUN 11, Creatinine 0.76, Estim Creat Clear Calc 74.37, Est GFR (MDRD) Af Amer 130, Est GFR (MDRD) Non-Af 108, BUN/Creatinine Ratio 14.5, Glucose 90, Calcium 8.7 Current Medications Acetaminophen (Tylenol) 650 mg PO Q6H PRN PRN PRN Reason: Mild Pain (scale 0-3)/T>100.7 Al Hydroxide/Mg Hydroxide (Mylanta Ii) 30 ml PO Q6H PRN PRN PRN Reason: Gastric Burning Bisacodyl (Dulcolax) 10 mg PO DAILY PRN PRN PRN Reason: Constipation Docusate Sodium (Colace) 200 mg PO BID PRN PRN PRN Reason: Constipation Enoxaparin Sodium (Lovenox) 40 mg SC DAILY@1000 RAMIRO Last Admin: 01/11/18 09:19 Dose: 40 mg Sodium Chloride () 250 mls @ 15 mls/hr IV .[id number] PRN PRN Reason: SALINE FLUSH Cefazolin Sodium 2 gm/ Sodium (Chloride) 110 mls @ 150 mls/hr IV Q8 RAMIRO Last Admin: 01/12/18 05:47 Dose: 150 mls/hr Magnesium Hydroxide (Milk Of Magnesia) 30 ml PO DAILY PRN PRN PRN Reason: Constipation Metoclopramide HCl (Reglan) 10 mg GT ACHS PRN PRN Reason: NAUSEA Morphine Sulfate () 4 - 6 mg IV Q4H PRN PRN PRN Reason: PAIN Multi-Ingredient Ointment (Aquaphor) 1 applic TOPICAL DAILY RAMIRO; Protocol Last Admin: 01/11/18 09:20 Dose: Not Given Nutritional Formula (Lactose Free) (Ensure Enlive) 120 ml PO 4X/DAY RAMIRO Last Admin: 01/11/18 21:07 Dose: 120 ml Ondansetron HCl (Zofran) 4 mg IV Q8H PRN PRN PRN Reason: Nausea Last Admin: 01/11/18 11:54 Dose: 4 mg Oxycodone HCl (Oxyir) 10 mg PO Q4H PRN PRN PRN Reason: SEVERE PAIN (6-10/10) Last Admin: 01/09/18 12:43 Dose: 10 mg Polyethylene Glycol (Miralax) 17 gm GT DAILY PRN PRN Reason: Constipation Last Admin: 01/08/18 13:59 Dose: 17 gm Sodium Chloride () 5 - 30 ml IV UD PRN PRN Reason: SALINE FLUSH Last Admin: 01/12/18 05:47 Dose: 20 ml Zolpidem Tartrate (Ambien (Generic)) 5 mg PO QHS PRN PRN PRN Reason: INSOMNIA Medical Necessity - Tobacco Use Smoking Status: Former smoker Assessment/Plan All Active Problems (Last Reviewed 01/05/18 @ 11:41 by Amberly Liu) Constipation (Acute) Chemotherapy management, encounter for (Acute) Dehydration (Acute) Central line complication (Acute) Port or reservoir infection (Acute) Infection due to Port-A-Cath (Acute) Testicular cancer (Acute) Gout (Acute) MIGUEL (obstructive sleep apnea) (Acute) Dyslipidemia (Acute) History of orchiectomy (Acute) S/P cervical spinal fusion (Acute) S/P rotator cuff repair (Acute) Squamous cell carcinoma (Acute) 72-year-old male with past medical history of right base of the tongue CA, status post chemo- and radiotherapy, finished on 12/25/17, s/p right MediPort, status admitted with erythema and 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 Acute MSSA bacteremia/port infection, stable vitals, no fevers, leukopenic Outpatient blood cultures on 05/18/2017 grew MSSA, blood cultures x2 done in the hospital have been negative. Wound cultures from port site grew MSSA. status post right port removal on 01/06/2018 by general surgery Initially on cefazolin and vancomycin; consult placed to infectious disease, TTE negative, unable to do RACHELLE on account of radiation to the neck PICC line placed on 05/22/2017; managed for 4 weeks of IV cefazolin with a stop date of 06/2017. Weekly BMP, CBC planned. 2. Right base of tongue CA, cT1 N2 M0, status post modified radical neck dissection on the right and excision of submandibular gland in August 2017, follows up with oncology, Dr. Gamble, seen here by oncology, follow-up in the outpatient 3. Leukopenia, no fevers, appears to be at his baseline, likely chemo related, will follow up with oncology in the outpatient 4. History of hypertension, not on any medications, blood pressure is controlled, to be monitored further 5. Severe protein calorie malnutrition secondary to patient underlying malignancy, receiving TF via PEG with nocturnal continuous feeds 6. DVT prophylaxis - SC Lovenox 7. Code Visit Inpatient E&M: 87284 Subs Hosp L2
--- NOTE | 2018-01-12 09:17 | PCM.DC ---
- Discharge Diagnoses Current Active Problems: Current Active and Chronic Problems (Last Reviewed 01/05/18 @ 11:41 by Amberly Liu) Port or reservoir infection (Acute) Infection due to Port-A-Cath (Acute) Reason(s) for Visit for Discharge Instructions: Right port infection You will use the following diet at home:: Regular Your food should be the consistency of: Regular Your liquids should be the consistency of: Regular/Thin Discharge Activity: Return to Normal Activity Call your doctor if your incision/area has: Continuous Slow Oozing, Sudden Increased Bleeding, Increased Pain/ Swelling, Foul Smelling Discharge Call your doctor if you observe: Fever of 101 or Higher Cleanse incision/area with: Keep Dressing Clean & Dry Additional Dressing/Incision Instructions:: Daily dry dressing changes Additional Instructions: Take note of tube feeding instructions: Jevity 1.5 with goal rate of 195cc/hr with 100mls water flush before and after feeding with an additional 210 cc flush 5x through out the day to provide 2633 calories, 112g protein, 2584cc total fluid per day. Start tube feeds at 165cc/hr and increase by 15cc every 3 hours as patient tolerates until goal rate is achieved Allergies/Adverse Reactions: Allergies No Known Allergies Allergy (Verified 01/06/18 11:22) Medications to take at Discharge Testosterone [Fortesta] 2 gm BC DAILY 10/07/17 Metoclopramide [Reglan Solution] 10 mg GT 4X/DAY PRN 01/06/18 Oxycodone HCl [Roxicodone] 5 mg GT Q6H PRN PRN 01/06/18 Polyethylene Glycol 3350 [Miralax] 17 gm GT DAILY PRN 01/06/18 Cefazolin 2 gm IV Q8 20 Days #60 vial 01/09/18 Ensure Enlive 120 ml PO 4X/DAY #100 liquid 01/12/18 Jevity 1.5 1 bottle GT QHS #30 bottle 01/12/18 The following prescriptions were given: Cefazolin 2 gm IV Q8 20 Days #60 vial Ensure Enlive 120 ml PO 4X/DAY #100 liquid Primary Care Physician: Yaquelin Joe NP-C [Primary Care Provider] - Please follow up with your Primary Care Physician in: within 2 weeks Test Results: Test results from this visit will be discussed in further detail at your follow-up appointment, if applicable. Please Follow Up With: Alberto Lozano MD When: within 2 weeks or as scheduled When: Regional Telecommunications Specialist within 2 weeks - call to make appointment Please Follow Up With: Reji Mcgraw MD When: in 2-4 weeks; call to make appointment When: General surgery - Dr. Sims if you notice more drainage at medport sit Proposed Discharge Date: 01/12/18
[2018-01-12] MEDS: Enoxaparin 40 MG/0.4 ML Syringe SC (09:23)
[2018-01-12] MEDS: Mineral Oil/Petrolatum Cr 1.75oz Bottle 1 APPLIC TOPICAL (09:24)
--- NOTE | 2018-01-12 09:25 | PCM.DC.SUM ---
Discharge Date and Diagnosis Date of Admission: 01/06/18 Date of Discharge: 01/12/18 - Primary Discharge Diagnosis Active and Suspected Problems (Last Reviewed 01/05/18 @ 11:41 by Amberly Liu) Port or reservoir infection (Acute) Infection due to Port-A-Cath (Acute) MSSA bacteremia Leukopenia - Secondary Discharge Diagnosis Chronic Problems (Last Reviewed 01/05/18 @ 11:41 by Amberly Liu) Regional lymph node metastasis present (Chronic) Malignant neoplasm of base of tongue (Chronic) HTN (hypertension) (Chronic) Hospital Course and Treatment ID Oncology General surgery Operations: None Procedures: - - Right-sided Mediport removal Summary of Care Provided: 72-year-old male with past medical history of right base of the tongue CA, status post chemo- and radiotherapy, finished therapy on 12/25/17, via right MedPort, status admitted with erythema and discharge from his port site. Patient had had blood cultures done on 01/05/2018 in the outpatient growing MSSA. Blood cultures x2 done in the hospital were negative. Wound cultures from the port site grew MSSA. ID was consulted. He was started initially on cefazolin and vancomycin. Antibiotics de-escalated to cefazolin only. TTE was negative. His right port was removed on 01/06/2018 by general surgery. Patient had a PICC line placed on 05/22/2017. ID recommended 4 weeks of IV cefazolin until 02/03/2018 with weekly BMP and CBCD. He was also seen by dietitian, diagnosed with severe protein calorie malnutrition secondary to underlying malignancy, had a PEG tube in place and was getting nocturnal continuous feeds. He was recommended to continue with Jevity 1.5 with goal rate of 195cc/hr with 100mls water flush before and after feeding with an additional 210 cc flush 5x through out the day to provide 2633 calories, 112g protein, 2584cc total fluid per day. He is to start tube feeds at 165cc/hr and increase by 15cc every 3 hours as patient tolerates until goal rate is achieved. Patient to be followed by home health as well as oncology in the outpatient. He will see general surgery if he notices more drainage from his Mediport site. Physical exam on the day of discharge was separately documented in the progress note on day of discharge. Discharge Diet: Low fat/ Low Cholesterol, 2000 mg Sodium Diet Discharge Activity: Return to Normal Activity Call your doctor if your incision/area has: Continuous Slow Oozing, Sudden Increased Bleeding, Increased Pain/ Swelling, Foul Smelling Discharge Call your doctor if you observe: Fever of 101 or Higher Cleanse incision/area with: Keep Dressing Clean & Dry Additional Dressing/Incision Instructions:: Daily dry dressing changes Home Medications: Medications to take at Discharge Testosterone [Fortesta] 2 gm BC DAILY 10/07/17 Metoclopramide [Reglan Solution] 10 mg GT 4X/DAY PRN 01/06/18 Oxycodone HCl [Roxicodone] 5 mg GT Q6H PRN PRN 01/06/18 Polyethylene Glycol 3350 [Miralax] 17 gm GT DAILY PRN 01/06/18 Cefazolin 2 gm IV Q8 20 Days #60 vial 01/09/18 Ensure Enlive 120 ml PO 4X/DAY #100 liquid 01/12/18 Jevity 1.5 1 bottle GT QHS #30 bottle 01/12/18 Following Prescrptions Were Given to Patient: Cefazolin 2 gm IV Q8 20 Days #60 vial Jevity 1.5 1 bottle GT QHS #30 bottle Ensure Enlive 120 ml PO 4X/DAY #100 liquid Primary Care Physician: Yaquelin Joe NP-C [Primary Care Provider] - Please follow up with your Primary Care Physician in: within 2 weeks Please Follow Up With: Alberto Lozano MD When: within 2 weeks or as scheduled When: Air Launch Weapons Technician within 2 weeks - call to make appointment Please Follow Up With: Reji Mcrgaw MD When: in 2-4 weeks; call to make appointment When: General surgery - Dr. Sims if you notice more drainage at medport sit Disposition: Home with Home Health Minutes spent on discharge:: 55 - Time coordinating care Patient Condition:: Stable Medical Necessity - Tobacco Use Smoking Status: Former smoker Meaningful Use Info Meaningful Use Diagnoses (Choose all that apply): None applicable Code Visit Inpatient E&M: 53017 Disch Hosp
--- NOTE | 2018-01-12 09:43 | CASEMGMT ---
KRISTI GAMBLE NOTE: *Call placed to [facility]. IV ATB's will be covered @ 100%. They were made aware of plan for discharge this AM and request for IV ATB to be delivered to pt's home prior to 1400 today so [facility] can begin Start of Care/teaching with pt @ 1400 dose of ATB. They will call KRISTI GAMBLE back to confirm when delivery time will be arranged. *PICC info faxed to [facility]. *New Script for Enteral Tube feedings received from Dr Hernandez. Script faxed to both [facility] and to [facility]. Nutrition Assess/Armament Repairer Report also faxed to [facility]. *Call placed to [facility] @ [facility] and informed of new script for Enteral tube feedings and made aware plan is for discharge this AM so start of care can begin with 1400 dose IV ATB's. KRISTI GAMBLE will notify [facility] once confirmation of delivery time is received from [facility]. *Pt informed IV ATB's covered @ 100% and plan of discharge this AM with start of care with [facility] for 1400 dose IV ATB's. Gilberto CARRINGTONN KRISTI CM
--- NOTE | 2018-01-12 11:07 | CASEMGMT ---
KRISTI GAMBLE NOTE: Call placed to Patt @ [facility] and she confirmed IV ATB's will be delivered to pt's home by 1400 today. Yudith @ [facility] made aware of this, that pt is being discharged this AM, and aware next IV ATB dose is due @ 1400 today. Start of Care confirmed for today 01/12/18 @ 1400. Pt also made aware, is agreeable to plan, and denies having any further questions or needs. Gilberto CARRINGTONN KRISTI CM
[2018-01-12 12:00] VITALS: BP 122/88; PULSE 68; RESP 14; TEMP 36.7; O2SAT 97
--- NOTE | 2018-01-12 12:35 | PCM.PN.ID ---
Patient Problems: Active and Suspected Problems (Last Reviewed 01/05/18 @ 11:41 by Amberly Liu) Port or reservoir infection (Acute) Infection due to Port-A-Cath (Acute) Subjective: Feeling well, d/c today, no issues with picc, no fever - Physical Exam General: Alert, Cooperative, No apparent distress Lungs: Clear to auscultation, Normal air movement Cardiovascular: Regular rate, Regular Rhythm Abdomen: Soft, Non Tender, Non-Distended Skin: No rashes Vital Signs Temp Pulse Resp BP Pulse Ox 98.1 F 68 14 122/88 H 97 01/12/18 12:00 01/12/18 12:00 01/12/18 12:00 01/12/18 12:00 01/12/18 12:00 Oxygen Delivery Method Room Air Weight: 87.543 kg Body Mass Index (BMI) 26.2 Intake and Output for Last 24 Hours 01/10/18 01/11/18 01/12/18 23:59 23:59 23:59 Intake Total 3 / 1933 2833 / 2833 1199 / 1199 Balance 1932 / 1933 2833 / 2833 1199 / 1199 Microbiology Past 72 Hours 01/07/18 10:14 Blood Culture - Final Blood Culture (Wb) - Left Hand No growth in 5 days. 01/06/18 11:41 Blood Culture - Final Blood Culture (Wb) - Right Hand No growth in 5 days. 01/06/18 11:53 Blood Culture - Final Blood Culture (Wb) - No Site/Description Given No growth in 5 days. 01/09/18 12:30 Blood Culture - Preliminary Blood Culture (Wb) - Left Hand No growth in 48 hours. 01/08/18 09:40 Blood Culture - Preliminary Blood Culture (Wb) - Left Hand No growth in 48 hours. Laboratory Tests Past 24 Hrs 01/12/18 01/12/18 05:40 05:40 WBC 1.7 L RBC 3.66 L Hgb 11.0 L Hct 32.6 L MCV 89.1 MCH 30.1 MCHC 33.7 RDW 13.8 RDW Differential 43.4 Plt Count 253 MPV 7.9 Sodium 141 Potassium 4.2 Chloride 103 Carbon Dioxide 30.0 Anion Gap 8 BUN 11 Creatinine 0.76 Estim Creat Clear Calc 74.37 Est GFR (MDRD) Af Amer 130 Est GFR (MDRD) Non-Af 108 BUN/Creatinine Ratio 14.5 Glucose 90 Calcium 8.7 Medical Necessity - Tobacco Use Smoking Status: Former smoker Route of nutrition/ use of supplements: [] Nutritional Intake: [] IV Site: [] Orozco Catheter: [] - Assessment/Plan Antibiotics: [] Assessment/Plan: [] Active and Suspected Problems (Last Reviewed 01/05/18 @ 11:41 by Amberly Liu) Constipation (Acute) Chemotherapy management, encounter for (Acute) Dehydration (Acute) Central line complication (Acute) Port or reservoir infection (Acute) Infection due to Port-A-Cath (Acute) MSSA port-related bacteremia - port removed 01/06. Repeat bcx remain neg. Narrowed abx to cefazolin. TTE with no veg seen. Likely unable to get RACHELLE due to head and neck cancer with radiation. No sign of other metastatic infection on exam. Given good source control, rapid clearance of Bcx, and clear TTE, plan will be for 4 weeks of iv cefazolin. Picc in place. Planned stop date is 02/03/18. Weekly bmp, cbc while on iv abx. Rx written for labs and abx Will follow, d/w correctional case records supervisor
--- NOTE | 2018-01-13 12:46 | CASEMGMT ---
Discharge follow-up phone call CANDY: 12 STRATA: 4 Discharge Date: 01/12/18 Adm Dx: Port infection KRISTI GAMBLE called pt to see how he has been doing since being discharged from the hospital. Pt states, I've been doing well. Thank you. Pt reports that [facility] services are going well. Pt reports he did not need to pharmacy picking technician anymore Ensure d/t he still has a good supply of it @ home. Pt denies having any questions about the discharge instructions or medications. He reports he has an appt w/Dr Polk this week and an appt with Dr Lozano next week. He states he has not made appts with Dr Mcgraw or with with back shoe worker yet but that he will be doing this. KRISTI GAMBLE thanked pt for taking the time to speak with KRISTI GAMBLE today and thanked him for choosing [facility]. Gilebrto COHEN RN, CM
== END 2018-01-12 12:00 | disposition home or self-care (01) | DRG 314 ==
LOC: ED 11:43 → MS3 12:57
PROVIDERS: Admitting Provider Internal Medicine; Emergency Provider Emergency Medicine; Family Provider Nurse Practitioner; PCP Nurse Practitioner; Referring Provider Internal Medicine; Visit Provider Internal Medicine
DX: T80.212A Local infection due to central venous catheter, initial encounter (principal); E43 Unspecified severe protein-calorie malnutrition; R78.81 Bacteremia; Y84.8 Other medical procedures as the cause of abnormal reaction of the patient, or of later complication, without mention of misadventure at the time of the procedure; M10.9 Gout, unspecified; D70.1 Agranulocytosis secondary to cancer chemotherapy; T45.1X5A Adverse effect of antineoplastic and immunosuppressive drugs, initial encounter; Z23 Encounter for immunization; L59.8 Other specified disorders of the skin and subcutaneous tissue related to radiation; Y84.2 Radiological procedure and radiotherapy as the cause of abnormal reaction of the patient, or of later complication, without mention of misadventure at the time of the procedure; B95.61 Methicillin susceptible Staphylococcus aureus infection as the cause of diseases classified elsewhere; Z68.26 Body mass index [BMI] 26.0-26.9, adult; Z90.79 Acquired absence of other genital organ(s); Z93.1 Gastrostomy status; Z85.810 Personal history of malignant neoplasm of tongue; Z85.47 Personal history of malignant neoplasm of testis; Z87.891 Personal history of nicotine dependence
CPT/HCPCS: 36415; 36569; 80048; 80053; 82962; 83605; 83735; 85025; 85027; 87040; 87070; 87077; 87186; 87205; 93306; 97802; 99282; J7030; J7040; 90686; A4216; J2405; J7799

== ENCOUNTER 2018-01-23 14:12 | Outpatient (RCR) | payer MEDICARE, SELFPAY ==
[2017-11-20 15:33] VITALS: BMI 29.5
[2018-01-23 14:44] LABS: Hematocrit 34.3 % (40-54); Hemoglobin 11.2 g/dl (13.0-16.5); Mean Corp Hgb Conc 32.7 g/gl (32-36); Mean Corpuscular Hgb 29.9 pg (27.0-32.0); Mean Corpuscular Volume 91.7 fL (80-94); Platelet Count 213 K/mm3 (150-450); RBC Distribution Width CV 14.7 % (11.6-14.6); RBC Distribution Width SD 48.1 fl (35.1-43.9); Red Blood Count 3.74 M/mm3 (4.6-6.2); White Blood Count 2.2 K/mm3 (4.4-11.0)
[2018-01-23 14:46] LABS: Scan Indicated on CBC? Y/N NO
[2018-01-23 14:55] LABS: Anion Gap 7 (5-15); BUN 23 mg/dL (7-18); BUN/Creat Ratio 25.4 RATIO (10-20); Calcium,Total 8.7 mg/dL (8.5-10.1); Chloride 104 mmol/L (98-107); EST Glomerular Filtration Rate 88 mL/min (>60); Est Glom Filt Rate - Afr Amer 106 mL/min (>60); Glucose 92 mg/dL (74-106); Potassium 4.3 mmol/L (3.5-5.1); Sodium Level 139 mmol/L (136-145)
[2018-01-30 13:55] LABS: Hematocrit 34.5 % (40-54); Hemoglobin 11.2 g/dl (13.0-16.5); Mean Corp Hgb Conc 32.5 g/gl (32-36); Mean Corpuscular Hgb 29.1 pg (27.0-32.0); Mean Corpuscular Volume 89.6 fL (80-94); Mean Platelet Vol. 8.9 fl (6.2-12.0); Platelet Count 158 K/mm3 (150-450); RBC Distribution Width CV 14.6 % (11.6-14.6); RBC Distribution Width SD 47.8 fl (35.1-43.9); Red Blood Count 3.85 M/mm3 (4.6-6.2); White Blood Count 2.3 K/mm3 (4.4-11.0)
[2018-01-30 13:56] LABS: Scan Indicated on CBC? Y/N NO
[2018-01-30 14:21] LABS: Anion Gap 6 (5-15); BUN 20 mg/dL (7-18); BUN/Creat Ratio 24.1 RATIO (10-20); Calcium,Total 8.7 mg/dL (8.5-10.1); Chloride 103 mmol/L (98-107); Creatinine, Serum 0.83 mg/dL (0.70-1.30); EST Glomerular Filtration Rate 97 mL/min (>60); Est Glom Filt Rate - Afr Amer 117 mL/min (>60); Glucose 87 mg/dL (74-106); Sodium Level 138 mmol/L (136-145)
== END 2018-02-11 23:59 ==
LOC: HHLAB 14:12
PROVIDERS: Family Provider Nurse Practitioner; PCP Nurse Practitioner; Referring Provider Internal Medicine Infectious Disease; Visit Provider Internal Medicine Infectious Disease
DX: T80.219A Unspecified infection due to central venous catheter, initial encounter (principal); C01 Malignant neoplasm of base of tongue; C79.89 Secondary malignant neoplasm of other specified sites; D40.10 Neoplasm of uncertain behavior of unspecified testis; I10 Essential (primary) hypertension; Z45.2 Encounter for adjustment and management of vascular access device; Z43.1 Encounter for attention to gastrostomy
CPT/HCPCS: 80048; 85027

== ENCOUNTER 2018-02-04 15:10 | Outpatient (RCR) | payer SELFPAY ==
[2017-11-20 15:33] VITALS: BMI 29.5
== END 2018-02-04 23:59 | disposition home or self-care (01) ==
LOC: NS 15:10
PROVIDERS: Family Provider Nurse Practitioner; PCP Nurse Practitioner; Visit Provider Student in an Organized Health Care Education/Training Program
DX: C01 Malignant neoplasm of base of tongue (principal); Z71.3 Dietary counseling and surveillance

== ENCOUNTER → 2018-02-19 22:59 | Outpatient (CLI) | payer OTHER, SELFPAY ==
[2018-02-19 23:14] LABS: Uric Acid 7.7 mg/dL (3.5-7.2)
== END ==
PROVIDERS: Referring Provider Nurse Practitioner; Visit Provider Nurse Practitioner
DX: M10.9 Gout, unspecified (principal)
CPT/HCPCS: 84550

== ENCOUNTER → 2018-05-14 12:34 | Outpatient (CLI) | payer MEDICARE, SELFPAY ==
[2017-11-20 15:33] VITALS: BMI 29.5
[2018-04-01 13:12] VITALS: BMI 24.7
[2018-04-09 14:17] VITALS: BMI 24.7
--- NOTE | 2018-05-14 12:41 | RAD_ITS ---
STUDY: SWALLOWING STUDY REASON FOR EXAM: Male, 72 years old. Malignant neoplasm of the base of the tongue. TECHNIQUE: The examination was performed with Speech Pathology in attendance. Under fluoroscopic observation, the patient ingested thin barium, thick barium, barium pudding, and barium coated cracker. FLUOROSCOPY TIME: 3:08 minutes/seconds. 2864 fluoroscopic images were obtained. RADIOLOGIST INVOLVEMENT: Radiologist was present and providing direct supervision. COMPARISON: None. FINDINGS: The following was observed during swallowing of the various mixtures of barium: Thin Barium: Penetration with ingestion of thin liquids. Thick Barium: Penetration with ingestion of nectar thickened and honey thickened liquids. Barium Pudding: There was no evidence of aspiration or laryngeal penetration. Moderate residual within the vallecula and piriform sinuses. This does not improve with the head turned to the right or left. Barium Coated Cracker: There was no evidence of aspiration or laryngeal penetration. RAD/Swallowing Function w/Video IMPRESSION: Penetration with ingestion of thin liquids as well as honey thickened and nectar thickened liquids. Moderate residual in the vallecula and piriform sinuses with ingestion of pudding. The swallow study findings were discussed with the patient by the speech pathologist at the conclusion of the examination. Please see speech pathology report for more information and recommendations. Electronically Signed: Tera Oviedo MD at 14:47 EST , Service support ,
--- NOTE | 2018-05-14 13:00 | SP.MBSS_ITS ---
PRIMARY / SECONDARY DIAGNOSIS: Dysphagia REFERRING PHYSICIAN: Dr. Polk CURRENT DIET: regular textures/thin liquids DENTITION: natural dentition w/ missing teeth, patient reports preference for mastication on right side of mouth since prior left molar extraction MENTAL STATUS: WF for participation in MBS RESPIRATORY STATUS: oxygenating on room air PREVIOUS MODIFIED BARIUM SWALLOW STUDY: 06/25/2017 MBS completed in [place], [place] results not available for review. The Patient denies alterations in diet texture/liquid consistency. REASON FOR REFERRAL: This patient is at higher risk for continual changes and possible decline in regard to the oropharyngeal swallow functioning/dysphagia severity, with a much higher prevalence of silent aspiration post irradiation to the oropharyngeal arena. The Patient requires further assessment of the oropharyngeal swallow function under fluoroscopy when considering the clinical dysphagia/swallow examinations lack of sensitivity to silent aspiration given the etiology of cause, persistent pharyngeal based deficits with lack of clarity regarding airway integrity upon subjective examination completed 03/31/2019. 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 Dr. Oviedo was the radiologist present for this evaluation. This study was recorded in the lateral view and images were sent to PACs for storage. The following consistencies were presented to this patient for analysis of oropharyngeal swallow function: thin liquid, nectar thickened liquid, honey thickened liquid, pudding, and a regular textured, Nery Doone cookie. Results of the MBS are as follows: PENETRATION / ASPIRATION SCALE (DIAZ): 1 = does not enter airway 2 = enters airway/above vocal folds/ejected 3 = enters airway/above vocal folds/not ejected 4 = enters airway/contacts vocal folds/ejected 5 = enters airway/contacts vocal folds/not ejected 6 = enters airway/below vocal folds/ejected 7 = enters airway/below vocal folds/not ejected despite effort 8 = enters airway/below vocal folds/no effort PENETRATION / ASPIRATION SCALE (SCORE): 1.Thin liquid via teaspoon: 2 2.Thin liquid via teaspoon: 3 3.Thin liquid via cup: 5 (trace) 4.Thin liquid via cup w/ chin tuck: 5 (trace) 5.Thin liquid via cup w/ supraglottic swallow maneuver: 3 6.Puddin 7.Cookie: 1 8.Thin liquid via cup: 3 9.[place] thickened liquid via cup: 2 10.Honey thickened liquid via cup: 2 11.Thin liquid via cup w/ super-supraglottic swallow maneuver: 5 12.Pudding w/ right head turn: 1 13.Pudding w/ left head turn: 1 IMPRESSION ORAL PHASE CHARACTERIZED BY: LABIAL SEAL: no labial escape TONGUE CONTROL DURING BOLUS MANIPULATION: cohesive bolus between tongue to palatal seal BOLUS PREPARATION / MASTICATION: slow prolonged chewing/mashing with complete recollection BOLUS TRANSPORT / LINGUAL MOTION: slowed tongue motion ORAL RESIDUE: residue collection on oral structures PHARYNGEAL PHASE CHARACTERIZED BY: INITIATION OF PHARYNGEAL SWALLOW: bolus head at posterior laryngeal surface of epiglottis at first hyoid excursion SOFT PALATE ELEVATION: trace column of contrast/air between soft palate and pharyngeal wall LARYNGEAL ELEVATION: partial superior movement of thyroid cartilage/partial approximation of arytenoids cartilage to epiglottic petiole ANTERIOR HYOID EXCURSION: partial anterior movement EPIGLOTTIC MOVEMENT: partial epiglottic inversion LARYNGEAL VESTIBULE CLOSURE AT HEIGHT OF SWALLOW: incomplete laryngeal vestibule closure with narrow column of air/contrast in laryngeal vestibule PHARYNGEAL STRIPPING WAVE: pharyngeal stripping wave present / diminished PHARYNGOESOPHAGEAL SEGMENT OPENING: complete distension and complete duration with no obstruction of flow TONGUE BASE RETRACTION: narrow column of contrast between tongue base and posterior pharyngeal wall PHARYNGEAL RESIDUE: majority of contrast within or on pharyngeal structures (valleculae w/ thicker viscosities) ESOPHAGEAL PHASE CHARACTERIZED BY: ESOPHAGEAL BOLUS CLEARANCE IN THE UPRIGHT POSITION: esophageal retention EFFECTS OF TREATMENT STRATEGIES ATTEMPTED: * Chin tuck posture = not effective * Left head turn = slight improvement in pharyngeal clearance compared to right head turn, although no significant benefit to use appreciated * Right head turn = not effective * Cough and reswallow = effective; improved laryngeal vestibule clearance * Supraglottic swallow = somewhat effective, slight improvement in arytenoid to epiglottic petiole contact for laryngeal vestibule closure * Super-supraglottic swallow = not effective, increased laryngeal vestibule penetration post deglutition * Effortful swallow = effective * Double swallow = effective * Liquid chaser = effective INTERPRETATION OF RESULTS: Patient presents with moderate oropharyngeal dysphagia (R13.12) secondary to malignant neoplasm of base of tongue status post irradiation. The oral phase is primarily marked by impaired A-P bolus transit of solid textures d/t xerostomia, requiring increased lingual effort and benefitting from a liquid wash to facilitate oral clearance. The pharyngeal phase is primarily marked by delayed pharyngeal swallow onset timing resulting in suboptimal bolus location upon swallow onset (liquids reaching the posterior laryngeal surface of the epiglottic prior to pharyngeal swallow onset) w/ decreased tongue base to posterior pharyngeal wall contact, minimal pharyngeal stripping wave, and incomplete closure of the airway during deglutition. Incomplete airway closure attributed to reduced laryngeal elevation and reduced anterior hyoid excursion resulting in decreased arytenoid to epiglottic petiole contact for sufficient laryngeal vestibule closure w/ incomplete epiglottic inversion. Epiglottis noted to be thick and made contact w/ the posterior pharyngeal wall but did not fully invert, resulting in a significant accumulation of contrast w/in the valleculae w/ subsequent retrograde bolus propulsion upward penetrating between the soft palate and posterior pharyngeal wall without penetration into the nasopharynx (velopharyngeal insufficiency). Additional residue accumulation was noted along the posterior pharyngeal wall whe the epiglottic made contact but did not invert. Laryngeal vestibule penetration occurred w/ all liquid consistencies, although only conacted the vocal folds transiently w/ thin liquids. Contrast remaining in the laryngeal vestibule post deglutition was coating the posterior laryngeal surface of the epiglottis/superior portion of the anterior laryngeal vestibule w/ no tracheal aspiration occurring during this MBS, although the patient is at increased risk for aspiration d/t inconsistent and incomplete ejection of contrast from the laryngeal vestibule. The patient was able to expel contrast when cued to cough and re-swallow. RECOMMENDATIONS DIET: regular textures/thin liquids; if changes in pulmonary status are noted, may consider downgrade to nectar thickened liquids as laryngeal vestibule penetration was of a lesser degree as liquid viscosity increased. COMPENSATORY STRATEGIES RECOMMENDED: Effortful swallow/multiple swallows and liquid chaser w/ solid textures, trial use of left head turn w/ solids to facilitate improved pharyngeal clearance, cough and re-swallow as needed, seated upright at 90 degrees during PO intake, remain upright for 30-60 minutes post meal (GERD precaution) NEED FOR SKILLED SPEECH THERAPY SERVICES TARGETING DYSPHAGIA: This patient requires intensive skilled speech-language intervention targeting implementation of recommended compensatory strategies w/ training and implementation of an oropharyngeal swallowing exercise program targeting to improve tongue base retraction, pharyngeal stripping wave, hyolaryngeal excursion, arytenoid to epiglottic petiole contact, epiglottic inversion, velar strength/retraction and pharyngeal contraction/pressure, as well as to promote the highest level of preserved post-irradiation swallow functioning. ADDITIONAL COMMENTS/RECOMMENDATIONS: Results and recommendations were discussed with the Patient in great detail immediately following MBS completion w/ review of images to gain improved patient comprehension of the deficits identified and need for skilled dysphagia intervention. All questions were answered with the Patient verbalizing understanding and agreement with all recommendations and education provided.
== END ==
PROVIDERS: Family Provider Nurse Practitioner; PCP Nurse Practitioner; Referring Provider Student in an Organized Health Care Education/Training Program; Visit Provider Student in an Organized Health Care Education/Training Program
DX: C01 Malignant neoplasm of base of tongue (principal)
CPT/HCPCS: 74230; 92611

== ENCOUNTER → 2018-10-05 07:52 | Outpatient (CLI) | payer MEDICARE, SELFPAY ==
[2017-11-20 15:33] VITALS: BMI 29.5
[2018-07-08 12:57] VITALS: BMI 23.6
--- NOTE | 2018-10-05 07:53 | CT_ITS ---
STUDY: CT CHEST WITH CONTRAST REASON FOR EXAM: Male, 73 years old. Tongue cancer with radiation therapy and chemotherapy. RADIATION DOSAGE (If Supplied By Facility): CTDIvol = ( 12.01 ) mGy, DLP = ( 395.18 ) mGycm TECHNIQUE: Transaxial imaging was performed following intravenous administration of 100CC IV Isovue 300. Coronal and sagittal 2-D MPR Individualized dose optimization techniques were used for this CT. COMPARISON: CT head and neck 12/12/2017. FINDINGS: Supraclavicular: No mass or lymphadenopathy. Normal thyroid. Submental, induration in the subcutaneous fat may be associated with radiation therapy. Limited evaluation. Body wall soft tissues: No acute process. Osseous structures: No acute process. Mild kyphoscoliosis, moderate multilevel thoracic degenerative disc disease with no significant stenosis. Cervical ACDF with multilevel cervical spondylosis. Upper abdomen: No acute process. Mediastinum: Normal esophagus. No mass or lymphadenopathy. Aorta: Nonaneurysmal ectasia of the ascending aorta and proximal arch 3.85 cm. Pulmonary arteries: Normal. Heart: Normal. Lungs: No acute process. Mild generalized hyperlucency suggesting COPD/smoking history. No suspicious focal lesions. Tiny right middle lobe pulmonary nodule measuring 3 mm is stable compared to prior imaging of November 2017. CT/Chest WITH Contrast IMPRESSION: No acute thoracic abnormality is evident. Electronically Signed: Isaac Bautista MD at 14:28 EDT Tel , Service support ,
[2018-10-05 08:10] LABS: CREATININE FINGERSTICK 1.3 mg/dL (0.70-1.30)
== END ==
PROVIDERS: Family Provider Nurse Practitioner; PCP Nurse Practitioner; Referring Provider Internal Medicine Hematology & Oncology; Visit Provider Internal Medicine Hematology & Oncology
DX: C01 Malignant neoplasm of base of tongue (principal); C15.9 Malignant neoplasm of esophagus, unspecified; C44.92 Squamous cell carcinoma of skin, unspecified; C62.90 Malignant neoplasm of unspecified testis, unspecified whether descended or undescended; C77.9 Secondary and unspecified malignant neoplasm of lymph node, unspecified
CPT/HCPCS: 71260; Q9967

== ENCOUNTER 2018-10-05 10:00 | Outpatient (RCR) | payer MEDICARE, SELFPAY ==
[2017-11-20 15:33] VITALS: BMI 29.5
--- NOTE | 2018-04-01 14:25 | SOAP_ITS ---
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 The Patient denies any overt signs or symptoms of dysphagia with the exception of occasional sensation of nasopharyngeal reflux with thin liquids (?feels as though it wants to come out of my nose?) and occasional bolus transpiration impairments that he attributes to alimentary tract dryness (solids occasional stick to the roof of his mouth, occasionally reports bolus status of solid textures below the laryngeal notch that returns to the oral cavity without acidic tasting qualities, no additional issues with reflux); reports persistent xerostomia (Grade I-II per RTOG Acute Morbidity Scoring Criteria) with continued use of oral rinses per recommendations; The Patient has recently maintained his weight primarily through PO means, with an overall 11.6% unintentional weight loss leading to / throughout intervention (baseline ~210lbs; post irradiation 197.6lbs; current 185.5lbs.); reports overall maintained appetite, though does report that his appetite is somewhat affected by hypogeusia and ageusia (Grade II-III per SSTA); denies nausea, emesis, early satiety, or inanition. He denies the presence of diurnal sialorrhea; reports improved odynophagia (very seldom, though reports feeling as though something is ?scraping? against the back of the tongue). He denies any current or previous issues with aspiration related pulmonary complications, to include pneumonia, bronchitis, or unexplained asthma symptoms; denies suboptimal intake behaviors (tachyphagia, bolus bolting, or aerophagia). 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 MEDICAL HISTORY: Malignant neoplasm of base of tongue status post irradiation with dysphagia and significant weight loss requiring prophylactic percutaneous endoscopic gastrostomy (PEG) tube placement; regional lymph node metastasis present, hypertension, obstructive sleep apnea, and arthritis. PREVIOUS MODIFIED BARIUM SWALLOW STUDY: 06/25/2017 MBS in [facility] was unavailable at the time of the assessment, with the Patient reporting no alterations in diet, no feedback recalled. ORAL MOTOR / MODIFIED CRANIAL NERVE ASSESSMENT: CNVII impaired; mild right labial asymmetry upon retraction / protrusion (reports consistent presentation post-surgical intervention); CNV, IX, X, and XII grossly intact. Natural dentition with multiple missing teeth; prior restorative work completed, no signs of dental carries, no reported odontalgia. Xerostomia (Grade I-II per RTOG Acute Morbidity Scoring Criteria) with pinkish appearance to the oral mucosa, slight whitish coating on the lingual blade; no evidence of mucositis, though does report ulcerations to the posterior tongue base recently visualized through objective imaging (scope); no evidence of diurnal sialorrhea. Sufficient volitional cough intensity. Reports slight discomfort located near the temporomandibular joint, Inter-Incisor Distance (IID): 3.5cm - Grade 0 (symptoms of possible OSMF without trismus) SUPPLEMENTARY DYSPHAGIA ASSESSMENT RESULTS: MD Ceja Dysphagia Inventory*: Global: 76/100 Physical: 27 Emotional: Functional: Functional Assessment of Cancer Therapy ? Head & Neck (FACT H&N)*: 83 Physical Well-Bein Social / Family Well- Bein Emotional Well-Bein Functional Well-Bein Additional Concerns: 25 [facility] Xerostomia- Related Quality of Life Scale (XeQOLS)*: Physical Functionin/20 Pain / Discomfort: 20 Personal / Psychological: 10/31 Social Functionin/15 Reflux Symptom Index (RSI): 9 (>13 may be indicative of significant reflux) Sialorrhea Scoring Scale (SSS): 1/9 (dry, never drools) Inter-incisor Distance (IID): 3.5cm - Grade 0 - Symptoms of OSMF without trismus *higher scores represent greater degree of symptoms CLINICAL ASSESSMENT OF SWALLOW FUNCTION (STRUCTURED): Total Dysphagia Risk Score (TDRS): 26 ? High risk (TDRS > 18) [place] Assessment of Swallowing Ability ? Cancer (MASA-C) Dysphagia Severity Score: 187 (Mild) [place] Assessment of Swallowing Ability ? Cancer (MASA-C) Dysphagia Risk Rating: Probable; moderate evidence for disorder requiring intervention or further investigation Performance Status Scale for Head and Neck Cancer Patients (PSS-HN): 300/300 Normalcy of Diet: 100 - full diet Public Eatin ? no restrictions of place, food, or nurse ob Understandability of Speech: 100 ? always understandable Repetitive Saliva Swallowing Test (RSST): Pass; > 2 dry swallows within 30 seconds. Swallowing Performance Scale (PSP): 3 ? mild dysfunction in oral or pharyngeal phase; requires modified diet or therapeutic swallowing precautions CLINICAL ASSESSMENT OF SWALLOW FUNCTION (SUBJECTIVE): ORAL PREPARATORY PHASE: oral preparatory phase appears overall unremarkable with the exception of reduced right lower labial sufficiency, with reported occasional right sided bolus loss, occasionally biting right lower lip during intake (typically during initial bite of sandwich / solids) ORAL TRANSITIONAL PHASE: oral transitional phase appears unremarkable; no signs of bolus consolidation impairments or transitional incompetence; no signs or symptoms of premature posterior bolus loss. PHARYNGEAL PHASE: pharyngeal phase marked by mild to moderate reduction in hyolaryngeal excursion with subjectively sufficient duration upon digital palpation suggestive of suboptimal laryngeal vestibule closure / pressure; no subjective signs of pharyngeal dysmotility; intermittent prominent audible swallow with fluctuating prominence possibly suggestive of pharyngeal swallow delay / dyssynchrony; Patient reported brief nasoregurgitation during ingestion of thin liquids with execution of the chin tuck posture suggestive of velopharyngeal insufficiency, unclear as to the significance at bedside (reports no consistent presentation); intermittent weak post prandial throat clearing particular following deglutition of solid textures or solid textures with a liquid chaser, may indicate penetration / aspiration, would suggest further assessment under fluoroscopy to elucidate airway compromise vs. effects of xerostomia. 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 RECOMMENDATIONS: The patient is at higher risk for continual changes and possible decline in regards to the oropharyngeal swallow functioning / dysphagia severity, with a much higher prevalence of silent aspiration post irradiation to the oropharyngeal arena. The Patient requires further assessment of the oropharyngeal swallow function under fluoroscopy when considering the clinical dysphagia / swallow examinations lack of sensitivity to silent aspiration given the etiology of cause, persistent pharyngeal based deficits with lack of clarity regarding airway integrity upon subjective examination. Results of the initial modified barium swallow study were not available at the time of the assessment; will attempt to obtain said results and score through the MBSImP and DIGEST protocol(s) to further elucidate the presence and extent of change in regards to the oropharyngeal swallow function through objective means. Provided Patient education regarding the importance of continued oral care status post-irradiation, with recommendations for a continued aggressive oral care program that includes pre-rinse use prior to water intake; routine oral care in the a.m., prior to oral intake, after oral intake, and prior to bed via toothbrush / swab / rinse; with frequent dental checkups post-irradiation. The Patient requires intensive skilled speech- language intervention targeting diet texture management and training / implementation of recommended compensatory strategies; training and implementation of a home based prophylactic swallowing exercise program to promote the highest level of preserved post-irradiation swallow functioning; with goal adjustments pending upcoming MBS results. DIET TEXTURE RECOMMENDATIONS: Will recommend a regular / soft textured, thin liquid diet with the following recommended aspiration precautions in place: include moisture to all solid / semisolid textures, reduced bolus volume, reduced rate of intake, liquid chaser at reasonable intervals, seated upright at 90 degrees during PO intake, remain upright for 30-60 minutes post meal (GERD precaution) FUNCTIONAL OUTCOMES: OUTCOME 1: The Patient will tolerate the least restrictive means of nutrition to facilitate adequate hydration/nutrition with optimum safety and efficiency of swallowing function during P.O. intake without overt signs and symptoms of aspiration. OUTCOME 2: The Patient will demonstrate and utilize recommended compensatory swallowing techniques to facilitate improved airway protection and decreased risk for aspiration during PO intake, across 2 out of 3 sessions. OUTCOME 3: The Patient will demonstrate and utilize recommended oropharyngeal range of motion exercise within the Patients clinical and home based program to improve and maintain overall oropharyngeal functioning and reducing the effects of post-irradiation dysphagia, with minimal cueing and prompting provide by the clinician, across 2 out of 3 sessions. OUTCOME 4: The Patient will participate in a repeat Modified Barium Swallow (MBS) study to objectively assess the Patient?s oropharyngeal swallowing function, improvements in oropharyngeal swallow function, to determine the least restrictive means of nutrition, and to identify appropriate intervention approaches / strategies to implement during treatment sessions at the supervised level. OUTCOME 5: goal adjustment as needed post MBS. G-CODES: SWALLOWING G8996 Current Status: CJ SWALLOWING G8997 Goal Status: ROBYN Gant M.A., CCC-GEOSPATIAL SPECIALIST [facility] Speech-Language Pathology Department [email or web address]
--- NOTE | 2018-10-05 18:04 | HP.SP.DC_ITS ---
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 The Patient participated in intervention sessions primarily consisting of diet texture management, training / implementation of recommended compensatory strategies, and training / implementation of a home based prophylactic swallowing exercise program to promote the highest level of preserved post-irradiation swallow functioning. At time of discharge, the Patient feels as though he is subjectively tolerating all intake at a much more efficient level than prior to intervention, and has demonstrated extensive independent execution of his post irradiation oropharyngeal maintenance program at an independent level. At this time, all goals have been met, w/ discharge from the skilled speech-language pathology caseload indicated. Will discharge from the skilled speech-language pathology caseload at this time, as all intervention goals have been achieved, though would gladly re-initiate intervention as needed moving forward.
== END 2018-10-05 19:00 | disposition home or self-care (01) ==
LOC: SP 10:00
PROVIDERS: Family Provider Nurse Practitioner; PCP Nurse Practitioner; Visit Provider Student in an Organized Health Care Education/Training Program
DX: C01 Malignant neoplasm of base of tongue (principal)
CPT/HCPCS: 92526; 92610

== ENCOUNTER → 2019-01-26 22:32 | Outpatient (CLI) | payer MEDICARE, SELFPAY ==
[2017-11-20 15:33] VITALS: BMI 29.5
[2019-01-26 17:25] VITALS: BMI 24.2
[2019-01-26 23:24] LABS: ALB/GLOB Ratio 1.1 RATIO (0.9-2.4); AST(SGOT) 13 U/L (15-37); Alanine Aminotransfer ALT/SGPT 23 U/L (16-61); Albumin, Serum 3.7 g/dL (3.2-5.0); Alkaline Phosphatase 75 U/L (45-117); Anion Gap 10 (5-15); BUN 25 mg/dL (7-18); BUN/Creat Ratio 21.2 RATIO (10-20); Calcium,Total 8.9 mg/dL (8.5-10.1); Chloride 104 mmol/L (98-107); Creatinine, Serum 1.18 mg/dL (0.70-1.30); EST Glomerular Filtration Rate 64 mL/min (>60); Est Glom Filt Rate - Afr Amer 78 mL/min (>60); Globulin 3.5 g/dL (2.2-4.2); Glucose 140 mg/dL (74-106); Protein, Total 7.2 g/dL (6.4-8.2); Sodium Level 139 mmol/L (136-145)
== END ==
PROVIDERS: Family Provider Nurse Practitioner; PCP Nurse Practitioner; Referring Provider Nurse Practitioner; Visit Provider Nurse Practitioner
DX: M25.551 Pain in right hip (principal)
CPT/HCPCS: 80053

== ENCOUNTER → 2019-10-18 12:30 | Outpatient (CLI) | payer MEDICARE, SELFPAY ==
[2017-11-20 15:33] VITALS: BMI 29.5
[2019-07-26 10:42] VITALS: BMI 25.8
--- NOTE | 2019-10-18 12:30 | RAD_ITS ---
STUDY: X-RAY CHEST REASON FOR EXAM: Male, 74 years old. Post treatment evaluation following chemotherapy and radiation for head and neck cancer. Postcookie swallow exam. TECHNIQUE: PA and lateral views of the chest. COMPARISON: CT of the chest, May 07, 2018. FINDINGS: The lungs are clear and expanded. There is no demonstrated pleural abnormality. Normal size heart. Normal mediastinum and elli. Normal visualized pulmonary arteries. Normal visualized aortic arch and descending thoracic aorta. There is minimal contrast seen along the left lateral wall of the upper thoracic esophagus. There is contrast material within the gastric lumen. There is scoliosis and degenerative changes of the thoracic spine with flattened kyphosis. There is anterior fusion of the lower cervical spine. Normal visualized ribs, clavicles, and shoulders. Minimal contrast is seen in small bowel loops. RAD/Chest PA and Lateral IMPRESSION: 1. Status post cookie swallow exam. Minimal contrast is seen along the lateral aspect of the upper esophagus. The majority of contrast material seen within the stomach. 2. No acute cardiopulmonary disease. 3. Scoliosis and degenerative changes of the thoracic spine. Electronically Signed: Edwin Borges DO at 17:33 EDT Tel [phone], Service support ,
--- NOTE | 2019-10-18 13:00 | SP.MBSS_ITS ---
PRIMARY / SECONDARY DIAGNOSIS: dysphagia (R13.12) CURRENT DIET (SOLIDS): regular ? 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 PREVIOUS MODIFIED BARIUM SWALLOW STUDY: 05/14/2018 MBS revealed mild to moderate oropharyngeal dysphagia with penetration and incomplete ejection during ingestion of thin liquid ASSESSMENT PARAMETERS: The Patient participated in a Modified Barium Swallow (MBS) study on 10/18/2019. This study was recorded in the lateral and frontal views and images were sent to PACs for storage. Scoring was completed through each trial using the 8-point Penetration-Aspiration Scale (PAS) and summarized via the Modified Barium Swallow Impairment Profile (MBSImP) and the Bolus Residue Scale (BRS), with severity scoring through the Swallowing Performance Scale (SPS), the Dynamic Imaging Grade of Swallowing Toxicity (DIGEST), and the Dysphagia Classification Scale (DCS), and recommended diet textures through the International Dysphagia Diet Standardisation Initiative (IDDSI) RESULTS OF THE EVALUATION: The Patient presents with mild to moderate oropharyngeal dysphagia SPS: 4; DIGEST: grade II) with post prandial bolus stasis secondary to a combination of post irradiation dysphagia and mechanical factors post anterior cervical fusion. OBJECTIVE ASSESSMENT OF SWALLOW FUNCTION (QUANTITATIVE ? PER TRIAL): PENETRATION / ASPIRATION SCALE (DIAZ): 1 = does not enter airway 2 = enters airway/above vocal folds/ejected 3 = enters airway/above vocal folds/not ejected 4 = enters airway/contacts vocal folds/ejected 5 = enters airway/contacts vocal folds/not ejected 6 = enters airway/below vocal folds/ejected 7 = enters airway/below vocal folds/not ejected despite effort 8 = enters airway/below vocal folds/no effort PENETRATION / ASPIRATION SCALE (SCORE): Thin liquid - 5 mL tsp.: 1 Thin liquids via cup (single sip): 3 Thin liquids via cup (single sip): 5 Thin liquids via cup (single sip): 3 Thin liquids via straw (sequential swallows): 4 Pudding via spoon: 1 Thin liquids via straw (single sip): 2 Regular textured cookie: 2 Thin liquids via straw (chin tuck): 2 Thin liquids via straw (chin tuck): 3 Thin liquids via straw (chin tuck): 2 OBJECTIVE ASSESSMENT OF SWALLOW FUNCTION (QUANTITATIVE ? AGGREGATE): MODIFIED BARIUM SWALLOW IMPAIRMENT PROFILE (MBSImP) LABIAL SEAL: 0 (of 4) no labial escape TONGUE CONTROL: 0 (of 3) cohesive bolus BOLUS PREPARATION / MASTICATION: 0 (of 3) timely and efficient BOLUS TRANSPORT / LINGUAL MOTION: 0 (of 4) brisk tongue motion ORAL RESIDUE: 1 (of 4) trace residue lining oral structures INITIATION OF PHARYNGEAL SWALLOW: 1 (of 4) valleculae SOFT PALATE ELEVATION: 0 (of 4) no bolus between soft palate & pharyngeal wall LARYNGEAL ELEVATION: 1 (of 3) partial superior movement / approximation ANTERIOR HYOID EXCURSION: 1 (of 2) partial movement EPIGLOTTIC MOVEMENT: 1 (of 2) partial inversion LARYNGEAL VESTIBULE CLOSURE: 1 (of 2) incomplete closure PHARYNGEAL STRIPPING WAVE: 1 (of 2) present / diminished PE SEGMENT OPENIN (of 3) partial distension / duration / obstruction TONGUE BASE RETRACTION: 3 (of 4) wide column of contrast PHARYNGEAL RESIDUE: 3 (of 4) majority of contrast remaining ESOPHAGEAL BOLUS CLEARANCE: could not view BOLUS RESIDUE SCALE (BRS): BRS SCORE: 6 (of 6) BRS SCORE DESCRIPTION: residue in valleculae, posterior pharyngeal wall, and piriform sinus OBJECTIVE ASSESSMENT OF SWALLOW FUNCTION (SEVERITY GRADING): SWALLOWING PERFORMANCE SCALE (SPS): SPS CLASSIFICATION: 4 (mild to moderate) SPS CLASSIFICATION CHARACTERISTICS: mild-moderate impairment with need for therapeutic precautions: requires modified diet and therapeutic precautions to minimize aspiration risk DYSPHAGIA CLASSIFICATION SCALE (DCS): DCS CLASSIFICATION: D3 (severe) DCS CLASSIFICATION CHARACTERISTICS: moderate to severe stasis, with the restriction of more than one food consistency DYNAMIC IMAGING GRADE OF SWALLOWING TOXICITY (DIGEST) DIGEST SAFETY GRADE: grade 1 DIGEST EFFICIENCY GRADE: grade 3 SUMMARY DIGEST GRADE: grade 2 (moderate) OBJECTIVE ASSESSMENT OF SWALLOW FUNCTION (QUALITATIVE): ORAL PREPARATORY PHASE: competent bolus manipulation without fragmented swallowing (piecemeal deglutition); sufficient anterior oral containment during oral manipulation; preserved management of breathing / bolus formation without disrupted E ? S ? E pattern ORAL TRANSITIONAL PHASE: no lingual discoordination (no tremor / undulations); occasional fragmented swallowing (piecemeal deglutition); sufficient oral clearance; sufficient oral containment across textures; no presence of premature posterior bolus loss; PHARYNGEAL PHASE: age appropriate pharyngeal phase synchrony; reduced hyolaryngeal excursion and duration resulting in inconsistent laryngeal vestibule pressure generated to expel penetrated material; significant pharyngeal dysmotility most prominently with semisolids and solids with consolidation predominantly within the vallecula and to a lesser extent the pyriforms and the upper esophageal segment opening; appropriate velopharyngeal functioning; ESOPHAGEAL PHASE: no obvious esophageal phase abnormalities observed. CONTRIBUTING / COMPLICATING FACTORS AND NOTABLE FINDINGS: anterior cervical fusion located at the C-5 to C-7 levels likely complicating pharyngoesophageal segment opening and pharyngoesophageal motility; several surgical dayne noted along the anterior vocal folds, mid anterior laryngeal vestibule, medial upper pharyngeal and medial lower pharyngeal areas at times impact image quality; RESPONSE TO STRATEGIES: all deficits managed successfully with reduction in bolus rate / volume adjustments, alteration between solids and liquids, with some benefit noted with execution of the chin tuck posture. DYSPHAGIA ASSOCIATED MEDICAL CONSIDERATIONS / INTERVENTION CONSIDERATIONS: I would consider the Patient to be at higher risk for continual changes and possible decline in swallow functioning / dysphagia severity post irradiation (late effects of radiation fibrosis can occur upwards of 40 years post treatment); would benefit from continual monitoring and yearly follow up modified barium swallow studies for at least 5 years post irradiation. INTERVENTION RECOMMENDATIONS AND CONSIDERATIONS: The Patient would benefit from continued skilled speech-language intervention targeting diet texture management and training / implementation of recommended compensatory strategies; continued training / retraining and implementation of a home based prophylactic swallowing exercise program to promote the highest level of preserved post-irradiation swallow functioning; and continued Patient / caregiver education regarding [place] and post- irradiation dysphagia and associated symptomology. POST ASSESSMENT EDUCATION: The results and recommendations were discussed with the Patient immediately following MBS completion, with the Patient verbalizing understanding and agreement with all recommendations and education provided. DIET TEXTURE RECOMMENDATIONS: Will recommend a regular ? soft textured (IDDSI: 6), thin liquid diet (IDDSI: 0) diet RECOMMENDED COMPENSATORY STRATEGIES: Consider cutting tougher textures into bite sized pieces, chin tuck with liquids, reduced bolus volume / rate of ingestion, liquid chaser at reasonable intervals, seated upright at 90 degrees during PO intake, remain upright for 30-60 minutes post meal (GERD precaution) IMAGE COUNT: [id number] Doc Gant M.A., MANOJ-CONSULTING PRACTICE DIRECTOR, CBIS MBSImP Certified, LSVT Certified [facility] Speech-Language Pathology Department Email: [email or web address]
== END ==
PROVIDERS: PCP Nurse Practitioner; Referring Provider Student in an Organized Health Care Education/Training Program; Visit Provider Student in an Organized Health Care Education/Training Program
DX: R13.12 Dysphagia, oropharyngeal phase (principal); C76.0 Malignant neoplasm of head, face and neck
CPT/HCPCS: 71046; 74230; 92611

== ENCOUNTER → 2020-02-24 | Outpatient (CLI) | payer MEDICARE, SELFPAY ==
[2020-02-23 17:54] VITALS: BMI 29.5
== END | disposition home or self-care (01) ==
LOC: LABSPEC 17:51
PROVIDERS: PCP Nurse Practitioner; Referring Provider Nurse Practitioner; Visit Provider Nurse Practitioner
DX: U07.1 COVID-19 (principal)
CPT/HCPCS: 87635; C9803; U0003

== ENCOUNTER → 2020-09-14 | Outpatient (CLI) | payer MEDICARE, SELFPAY ==
[2020-02-23 17:54] VITALS: BMI 29.5
[2020-09-14 17:06] VITALS: BMI 26.8
[2020-09-14 21:36] LABS: Absolute Lymphocyte Count 1.23 X10^3/uL (0.83-4.51); Basophil# 0.05 X10^3/uL; Basophil% 1.3 % (0-1); Eosinophil# 0.11 X10^3/uL; Eosinophils% 2.9 % (0-5); Hematocrit 43.6 % (40-54); Hemoglobin 14.5 g/dL (13.0-16.5); Lymphocyte # 1.23 X10^3/ul (0.83-4.51); Lymphocyte % 32.6 % (19-41); Mean Corp Hgb Conc 33.3 g/dL (32-36); Mean Corpuscular Hgb 29.1 pg (27.0-32.0); Mean Corpuscular Volume 87.6 fL (80-94); Monocyte# 0.35 X10^3/uL; Monocyte% 9.3 % (0-10); NRBC Flagged by Analyzer 0 % (0-5); Neutrophil # 2.03 X10^3/uL (2.7-7.7); Neutrophil % 53.9 % (47-70); Platelet Count 226 K/mm3 (150-450); RBC Distribution Width CV 13.6 % (11.6-14.6); RBC Distribution Width SD 43.6 fl (35.1-43.9); Red Blood Count 4.98 M/mm3 (4.6-6.2); White Blood Count 3.8 K/mm3 (4.4-11.0)
[2020-09-14 22:02] LABS: ALB/GLOB Ratio 1.1 RATIO (0.9-2.4); AST(SGOT) 16 U/L (15-37); Alanine Aminotransfer ALT/SGPT 18 U/L (16-61); Albumin, Serum 3.8 g/dL (3.2-5.0); Alkaline Phosphatase 106 U/L (45-117); Anion Gap 8 (5-15); BUN 23 mg/dL (7-18); BUN/Creat Ratio 18.9 RATIO (10-20); Calcium,Total 8.5 mg/dL (8.5-10.1); Chloride 105 mmol/L (98-107); Creatinine, Serum 1.22 mg/dL (0.70-1.30); EST Glomerular Filtration Rate 62 mL/min (>60); Est Glom Filt Rate - Afr Amer 75 mL/min (>60); Globulin 3.6 g/dL (2.2-4.2); Glucose 143 mg/dL (74-106); Potassium 3.7 mmol/L (3.5-5.1); Protein, Total 7.4 g/dL (6.4-8.2); Sodium Level 139 mmol/L (136-145); Thyroid Stim Hormone (TSH) 2.35 uIU/mL (0.358-3.74); Uric Acid 7.4 mg/dL (3.5-7.2)
== END | disposition home or self-care (01) ==
PROVIDERS: PCP Nurse Practitioner; Referring Provider Nurse Practitioner; Visit Provider Nurse Practitioner
DX: M1A.49X0 Other secondary chronic gout, multiple sites, without tophus (tophi) (principal); I10 Essential (primary) hypertension
CPT/HCPCS: 80053; 84443; 84550; 85025

== ENCOUNTER 2021-06-18 13:07 | Outpatient (CLI) | payer MEDICARE, SELFPAY ==
[2021-02-26 20:54] VITALS: BMI 29.5
--- NOTE | 2021-06-18 15:18 | SP.MBSS_ITS ---
Modified Barium Swallow - Patient Information Study Date: 06/18/21 Study Time: 13:00 Direct Billable Minutes: 90 Total Minutes procedure & reportin Diagnosis: Hx of primary malignant neoplasm of base of tongue (Z85.810) Referring Physician: Chace Polk Reason for Referral: Objectively assess swallow function, risk for aspiration, and determine recommendations for least restrictive diet textures and compensatory strategies to improve safety of swallow. 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 Cervical fusion (2013). Current Diet Ordered: Regular textures / Thin liquids Dentition: WNL Mental Status: WNL Respiratory Status: Oxygenating on Room Air - Penetration-Aspiration Scale Penetration-Aspiration Scale: OBJECTIVE ASSESSMENT OF SWALLOW FUNCTION (QUANTITATIVE ? PER TRIAL): PENETRATION / ASPIRATION SCALE (DIAZ): 1 = does not enter airway 2 = enters airway/above vocal folds/ejected 3 = enters airway/above vocal folds/not ejected 4 = enters airway/contacts vocal folds/ejected 5 = enters airway/contacts vocal folds/not ejected 6 = enters airway/below vocal folds/ejected 7 = enters airway/below vocal folds/not ejected despite effort 8 = enters airway/below vocal folds/no effort VIDEOFLOROSCOPIC SCALE SCORE (DIAZ): Grade I = aspiration of material that has penetrated into the laryngeal vestibule, intact cough reflex Grade II = aspiration < 10 % of the bolus, intact cough reflex Grade III = aspiration of < 10 % of the bolus, reduced cough reflex or aspiration of > 10 % of the bolus, intact cough reflex Grade IV = aspiration of > 10 % of the bolus, reduced cough reflex - Penetration-Aspiration Scale Score Thin Liquid via teaspoon Result: 1= does not enter airway Thin Liquid via teaspoon Trial 2 Result: 3= enters airways/above vocal folds/not ejected Thin Liquid via small single sip from cup Result: 1= does not enter airway Thin Liquid via sequential sips from cup Result: 5= enters airways/contacts vocal folds/not ejected [place] Thick Liquid via small single sip from cup Result: 2= enter airway/above vocal folds/ejected Honey Thick Liquid via small single sip from cup Result: 2= enter airway/above vocal folds/ejected Pudding Result: 1= does not enter airway Cookie Result: 1= does not enter airway Thin Liquid via small single sip from cup Trial 2 Result: 2= enter airway/above vocal folds/ejected Thin Liquid via single sip from straw Result: 3= enters airways/above vocal folds/not ejected Thin Liquid via small single sip from cup Effortful swallow Result: 3= enters airways/above vocal folds/not ejected - Penetration after the swallow from spillage of residue in the vallecula - Oral Phase Labial Seal: No Labial Escape Tongue Control During Bolus Hold: Posterior escape of less than half of bolus Bolus Preparation/Mastication: Timely and efficient chewing and mashing Bolus Transport/Lingual Motion: Brisk tongue motion Oral Residue: Trace residue lining oral structures - Pharyngeal Phase Initiation of Pharyngeal Swallow: Bolus head in pyriforms Soft Palate Elevation: Trace column of contrast/air between soft palate and pharyngeal wall Laryngeal Elevation: Partial superior movement thyroid cart/partial apprx aryt- epig petiole Anterior Hyoid Excursion: Partial anterior movement Epiglottic Movement: No inversion Laryngeal Vestibule Closure at Height of Swallow: Incomplete; narrow column of air/contrast in laryngeal vestibule Pharyngeal Stripping Wave: Present - complete Pharyngoesophageal Segment Opening: Parital distension and partial duration; parital obstruction of flow Tongue Base Retraction: Wide column of contrast between tongue base & post. pharyngeal wall Pharyngeal Residue: Collection of residue within or on pharyngeal structures - Esophageal Phase Esophageal Clearance: Complete clearance - Treatment Strategies Effects of treatment strategies attemped:: Double swallow = Effective in partially clearing pharyngeal residues. Effortful swallow = Somewhat effective in improving closure of the laryngeal vestibule. Decreased bolus rate = Effective. - Diagnosis/Impression Diagnosis: Mild oropharyngeal phase dysphagia (R13.12) Impression: The oral phase is marked by mild deficits in bolus control with posterior loss of less than half the bolus of sequential thin liquids to the pyriforms upon swallow onset, resulting in suboptimal bolus placement as the pharyngeal swallow initiated. The pharyngeal phase is marked by moderate deficits in tongue base retraction resulting in moderate pharyngeal residues in the vallecula after the swallow. The patient also has decreased airway closure during the swallow due to decreased anterior hyoid excursion and decreased laryngeal elevation, resulting in decreased approximation of the arytenoids to the epiglottic petiole and moderate pharyngeal residues in the pyriforms after the swallow. The patient demonstrated laryngeal penetration of various liquid consistencies during the swallow. Thin liquids trials did not always fully eject from the laryngeal vestibule. The patient is at increased risk to aspirate contrast in the laryngeal vestibule after the swallow. He benefited from decreased bolus size and rate to decrease depth of laryngeal penetration. - Recommendations Diet: Regular Textures - Easy to Chew textures (IDDSI Level 7), Thin Liquids Compensatory Strategies: Small Bites, Small Sips - Consider use of effortful s wallows. Cough and reswallow if wet vocal quality with liquids., Slow Rate, Multiple Swallows, Sitting upright Recommend Repeat Modified Barium Swallow: Yes Comment: Plan for repeat MBS in 6-12 months to continue to monitor swallow function s/p radiation, as pt is at increased risk for worsening dysphagia and aspiration risk related to termite exterminator effects of radiation. Need for Skilled Speech Therapy Services: Yes Comment: Will recommend the patient for outpatient dysphagia therapy to address deficits in oropharyngeal swallow function. Would consider the patient for oropharyngeal strengthening to improve tongue base retraction, laryngeal elevation, hyoid excursion, and duration of UES opening. The patient would benefit from thorough education regarding diet recommendations and recommended compensatory strategies. Education Completed: 1. Described result of evaluation., 7. Pt requires further education on strategies & risks. - Status Active ST Patient: Active - Contact Information [facility] Speech Therapy:: Morena Rodriguez M.A. [facility]-TELEVISION NEWS REPORTER Speech-Language Pathologist [facility] [address] [place] [address] [email or web address] [phone] 06/18/21 15:24
== END 2021-06-18 23:59 | disposition home or self-care (01) ==
LOC: RAD 13:09
PROVIDERS: PCP Nurse Practitioner; Referring Provider Student in an Organized Health Care Education/Training Program; Visit Provider Student in an Organized Health Care Education/Training Program
DX: Z85.810 Personal history of malignant neoplasm of tongue (principal)
CPT/HCPCS: 74230; 92611

== ENCOUNTER → 2021-11-12 | Outpatient (CLI) | payer MEDICARE, SELFPAY ==
[2021-02-26 20:54] VITALS: BMI 29.5
--- NOTE | 2021-11-12 08:50 | RAD_ITS ---
STUDY: XR Chest 2 Views 11/12/2021 8:55 AM REASON FOR EXAM: Male, 76 years old. CHEST PAIN CANCER SURVEILLANCE COMPARISON: 11.17.20 TECHNIQUE: XR Chest 2 Views FINDINGS: There is no demonstrated pleural abnormality. Cervical spine fusion hardware noted. Normal heart size. Normal mediastinum. Normal elli. Prominent appearing increased interstitial lung markings. Normal visualized pulmonary arteries. There is atherosclerotic calcification of the aortic arch with tortuosity. There are diffuse degenerative changes of the visualized thoracic spine. There is degenerative osteoarthritis of the bilateral shoulders. There is no demonstrated abnormality of the visualized soft tissue structures of the upper abdomen. RAD/Chest PA and Lateral IMPRESSION: There are no acute findings. Electronically Signed: Kyle Dangelo MD at 14:22 EDT ,
== END | disposition home or self-care (01) ==
LOC: RAD 08:49
PROVIDERS: PCP Nurse Practitioner; Referring Provider Internal Medicine Hematology & Oncology; Visit Provider Internal Medicine Hematology & Oncology
DX: C01 Malignant neoplasm of base of tongue (principal); C77.9 Secondary and unspecified malignant neoplasm of lymph node, unspecified
CPT/HCPCS: 71046

== ENCOUNTER → 2022-02-05 | Outpatient (CLI) | payer MEDICARE, SELFPAY ==
[2021-02-26 20:54] VITALS: BMI 29.5
== END | disposition home or self-care (01) ==
LOC: RAD 12:55
PROVIDERS: PCP Nurse Practitioner; Referring Provider Student in an Organized Health Care Education/Training Program; Visit Provider Student in an Organized Health Care Education/Training Program
DX: Z85.810 Personal history of malignant neoplasm of tongue (principal)
CPT/HCPCS: 74230

== ENCOUNTER → 2022-10-10 | Outpatient (CLI) | payer MEDICARE, SELFPAY ==
[2021-02-26 20:54] VITALS: BMI 29.5
[2022-10-10 20:53] LABS: Absolute Lymphocyte Count 0.72 X10^3/uL (0.83-4.51); Absolute Neutrophil Count 3.1 X10^3/uL (2.0-7.7); Basophil# 0.07 X10^3/uL; Basophil% 1.5 % (0-1); Eosinophil# 0.22 X10^3/uL; Eosinophils% 4.8 % (0-5); Hematocrit 40.6 % (40-54); Hemoglobin 13.7 g/dL (13.0-16.5); Lymphocyte # 0.72 X10^3/ul (0.83-4.51); Lymphocyte % 15.8 % (19-41); Mean Corp Hgb Conc 33.7 g/dL (32-36); Mean Corpuscular Hgb 29.1 pg (27.0-32.0); Mean Corpuscular Volume 86.4 fL (80-94); Monocyte# 0.45 X10^3/uL; Monocyte% 9.9 % (0-10); NRBC Flagged by Analyzer 0 % (0-5); Neutrophil # 3.09 X10^3/uL (2.7-7.7); Neutrophil % 67.8 % (47-70); Platelet Count 204 K/mm3 (150-450); RBC Distribution Width CV 13.1 % (11.6-14.6); White Blood Count 4.6 K/mm3 (4.4-11.0)
[2022-10-10 21:06] LABS: AST(SGOT) 221 U/L (15-37); Alanine Aminotransfer ALT/SGPT 121 U/L (16-61); Albumin, Serum 3.7 g/dL (3.2-5.0); Alkaline Phosphatase 97 U/L (45-117); Anion Gap 7 (5-15); BUN 25 mg/dL (7-18); BUN/Creat Ratio 19.8 RATIO (10-20); Calcium,Total 8.8 mg/dL (8.5-10.1); Chloride 110 mmol/L (98-107); Cholesterol 194 mg/dL (200); Creatinine, Serum 1.26 mg/dL (0.70-1.30); EST Glomerular Filtration Rate 59 mL/min (>60); Est Glom Filt Rate - Afr Amer 72 mL/min (>60); Globulin 3.7 g/dL (2.2-4.2); Glucose 110 mg/dL (74-106); High Density Lipoprotein 56 mg/dL; Potassium 3.8 mmol/L (3.5-5.1); Protein, Total 7.4 g/dL (6.4-8.2); Sodium Level 143 mmol/L (136-145); Triglycerides 186 mg/dL; Uric Acid 6.6 mg/dL (3.5-7.2); Very Low Density Lipoprotein 37 mg/dL (5-40)
== END | disposition home or self-care (01) ==
PROVIDERS: PCP Nurse Practitioner; Referring Provider Nurse Practitioner; Visit Provider Nurse Practitioner
DX: C62.90 Malignant neoplasm of unspecified testis, unspecified whether descended or undescended (principal); I10 Essential (primary) hypertension; M10.9 Gout, unspecified; E78.5 Hyperlipidemia, unspecified; M25.552 Pain in left hip
CPT/HCPCS: 80053; 80061; 84550; 85025

== ENCOUNTER → 2022-10-29 | Outpatient (CLI) | payer MEDICARE, SELFPAY ==
[2022-10-29 17:47] VITALS: BMI 29.5
[2022-10-29 22:36] LABS: AST(SGOT) 27 U/L (15-37); Alanine Aminotransfer ALT/SGPT 58 U/L (16-61); Albumin, Serum 3.6 g/dL (3.2-5.0); Alkaline Phosphatase 94 U/L (45-117); Anion Gap 6 (5-15); BUN 28 mg/dL (7-18); BUN/Creat Ratio 22.2 RATIO (10-20); Calcium,Total 8.5 mg/dL (8.5-10.1); Chloride 109 mmol/L (98-107); Creatinine, Serum 1.26 mg/dL (0.70-1.30); EST Glomerular Filtration Rate 59 mL/min (>60); Est Glom Filt Rate - Afr Amer 72 mL/min (>60); Globulin 3.6 g/dL (2.2-4.2); Potassium 4.2 mmol/L (3.5-5.1); Protein, Total 7.2 g/dL (6.4-8.2); Sodium Level 140 mmol/L (136-145)
== END | disposition home or self-care (01) ==
PROVIDERS: PCP Nurse Practitioner; Visit Provider Nurse Practitioner
DX: R74.8 Abnormal levels of other serum enzymes (principal)
CPT/HCPCS: 80053

== ENCOUNTER → 2022-12-25 | Outpatient (CLI) | payer MEDICARE, SELFPAY ==
[2022-10-29 17:47] VITALS: BMI 29.5
--- NOTE | 2022-12-25 14:10 | ST.MBS ---
Modified Barium Swallow Patient Information Study Date: 12/25/22 Study Time: 13:00 Direct Billable Minutes: 110 Total Minutes procedure & reportin Diagnosis: Hx of primary malignant neoplasm of base of tongue (Z85.810) Referring Physician: Chace Polk Reason for Referral: Objectively assess swallow function, risk for aspiration, and determine recommendations for least restrictive diet textures and compensatory strategies to improve safety of swallow - yearly follow up. 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 Cervical fusion (2013). History of oropharyngeal phase dysphagia s/p R submandibular gland excision and right selective neck dissection with concurrent chemoradiation. MBSS 06/18/2021 revealed mild oropharyngeal phase dysphagia and recommended Regular Textures - Easy to Chew textures, Thin Liquids; Compensatory Strategies: Small Bites, Small Sips - Consider use of effortful swallows. Cough and re-swallow if wet vocal quality with liquids., Slow Rate, Multiple Swallows, Sitting upright. He participated in oropharyngeal strengthening in junction with myofascial release following the study for 4 visits from 06/25/2021-07/06/2021. Most recent MBSS completed 02/05/22 which revealed mild-moderate oropharyngeal phase dysphagia and recommended Regular Textures, Thin Liquids; Compensatory Strategies:Small Bites, Small Sips - Cough and re-swallow each sip, Slow Rate, Alternate bites/solids and sips/liquids, Sitting upright, Remain sitting upright for 30 minutes after PO intake. Additional speech therapy was recommended following 02/05/22 MBSS d/t worsening swallow function ? the patient did attend one follow up ST session on 02/20/22, but did not return for additional treatment. The patient reports that he has been completing neck ROM exercises at home but admits that he has not been completing any swallowing exercises. The patient denies any instances of PNA since prior MBSS. Current Diet Ordered: Regular Textures/Thin Liquids Dentition: WNL Mental Status: WNL Respiratory Status: Oxygenating on Room Air Penetration-Aspiration Scale Penetration-Aspiration Scale: OBJECTIVE ASSESSMENT OF SWALLOW FUNCTION (QUANTITATIVE ? PER TRIAL): PENETRATION / ASPIRATION SCALE (DIAZ): 1 = does not enter airway 2 = enters airway/above vocal folds/ejected 3 = enters airway/above vocal folds/not ejected 4 = enters airway/contacts vocal folds/ejected 5 = enters airway/contacts vocal folds/not ejected 6 = enters airway/below vocal folds/ejected 7 = enters airway/below vocal folds/not ejected despite effort 8 = enters airway/below vocal folds/no effort VIDEOFLOROSCOPIC SCALE SCORE (DIAZ): Grade I = aspiration of material that has penetrated into the laryngeal vestibule, intact cough reflex Grade II = aspiration < 10 % of the bolus, intact cough reflex Grade III = aspiration of < 10 % of the bolus, reduced cough reflex or aspiration of > 10 % of the bolus, intact cough reflex Grade IV = aspiration of > 10 % of the bolus, reduced cough reflex Penetration-Aspiration Scale Score Thin Liquid via teaspoon: Result: 1= does not enter airway Thin Liquid via teaspoon Trial 2: Result: 3= enters airways/above vocal folds/not ejected Thin Liquid via cup: Result: 3= enters airways/above vocal folds/not ejected (during the swallow w/ eventual post-prandial progression to 5= enters airway/contacts vocal folds/not ejected) Thin liquid via sequential sips from cup: Result: 3= enters airways/above vocal folds/not ejected Thin liquid via straw: Result: 5= enters airways/contacts vocal folds/not ejected Pudding: Result: 1= does not enter airway Cookie: Result: 1= does not enter airway Thin Liquid via cup Trial 2: Result: 3= enters airways/above vocal folds/not ejected Oral Phase Labial Seal: No Labial Escape Tongue Control During Bolus Hold: Cohesive bolus between tongue to palatal seal Bolus Preparation/Mastication: Timely and efficient chewing and mashing Bolus Transport/Lingual Motion: Delayed initiation of tongue motion Oral Residue: Trace residue lining oral structures Pharyngeal Phase Initiation of Pharyngeal Swallow: Bolus head in valleculae Soft Palate Elevation: Trace column of contrast/air between soft palate and pharyngeal wall Laryngeal Elevation: Partial superior movement thyroid cart/partial apprx aryt-epig petiole Anterior Hyoid Excursion: Partial anterior movement Epiglottic Movement: No inversion Laryngeal Vestibule Closure at Height of Swallow: Incomplete; narrow column of air/contrast in laryngeal vestibule Pharyngeal Stripping Wave: Present - diminished Pharyngoesophageal Segment Opening: Parital distension and partial duration; parital obstruction of flow Tongue Base Retraction: Narrow column of contrast between tongue base & post. pharyngeal wall Pharyngeal Residue: Collection of residue within or on pharyngeal structures Treatment Strategies Effects of treatment strategies attemped:: -Cough and re-swallow: effective to clear contrast from the laryngeal vestibule -Multiple swallow: marginally effective to reduce pharyngeal residue -Liquid wash: effective to clear pharyngeal residue Diagnosis/Impression Diagnosis: mild-moderate oropharyngeal dysphagia (R13.12) Impression: The oral phase is characterized by: -adequate labial seal w/no anterior bolus loss -swallow onset was timely w/ thin liquid boluses intermittently reaching the valleculae prior to swallow onset -mild delay in lingual motion for AP bolus transportation -mastication grossly WNL The pharyngeal phase is characterized by: -incomplete hyolaryngeal excursion w/ no epiglottic inversion resulting in reduced airway protection during the swallow -reduced tongue base retraction and significantly diminished pharyngeal stripping wave, coupled w/ incomplete UES distention/duration, resulting in reduced pharyngeal clearance w/ moderate-severe post-prandial pharyngeal residue accumulation w/in the pyriforms/inferior pharyngeal wall -use of a liquid wash was effective to facilitate [id number] transit of post-prandial pharyngeal residue retention w/ cookie trial -thin liquids penetrated the laryngeal vestibule during the swallow d/t incomplete airway closure, contacting the vocal folds at times -the patient was sensate to vocal fold contact, with penetration spontaneously eliciting a throat clearing response from the patient -throat clear/cough and re-swallow were effective to expel contrast from the laryngeal vestibule Recommendations Diet: Regular Textures and Thin Liquids Compensatory Strategies: Small Bites, Small Sips (cough and re-swallow w/ sips), Alternate bites/solids and sips/liquids, Sitting upright and Remain sitting upright for 30 minutes after PO intake Recommend Repeat Modified Barium Swallow: Yes (Repeat MBSS in 6-12 months for ongoing assessment of swallow function d/t late effects of radiation ) Need for Skilled Speech Therapy Services: Yes Comment: Images were reviewed w/ the patient immediately following MBSS completion. Recommend f/u w/ ST for dysphagia therapy to address mild-moderate oropharyngeal dysphagia. Education was provided re: the impact of radiation tx on swallow function over time, the role of outpatient speech therapy for dysphagia management and the necessity of home exercise program implementation to improve swallow function, prevent further decline, and avoid associated risks (worsening dysphagia, aspiration, pneumonia, inability to maintain sufficient oral nutrition/hydration, etc). Education Completed: 1. Described result of evaluation., 2. Pt understands evaluation & agrees with goals and treatment plan. and 7. Pt requires further education on strategies & risks. Status Active ST Patient: Active Contact Information [facility] Speech Therapy:: Shahida Romero M.A. [facility] Speech-Language Pathologist [facility] [address] [place] [address] [phone]
== END | disposition home or self-care (01) ==
LOC: RAD 12:57
PROVIDERS: PCP Nurse Practitioner; Referring Provider Student in an Organized Health Care Education/Training Program; Visit Provider Student in an Organized Health Care Education/Training Program
DX: Z85.810 Personal history of malignant neoplasm of tongue (principal)
CPT/HCPCS: 74230; 92611

== ENCOUNTER → 2023-05-02 | Outpatient (CLI) | payer MEDICARE, SELFPAY ==
[2022-10-29 17:47] VITALS: BMI 29.5
--- NOTE | 2023-05-02 10:36 | ECHOD_ITS ---
Reason For Study: HTN, Pre-op clearance Procedure This was a 2D Doppler, Color Flow transthoracic echocardiogram. Exam performed in department. Left Ventricle Normal LV size. Left ventricular systolic function is normal. The estimated ejection fraction is 65 %. No regional wall motion abnormalities noted. Right Ventricle Normal RV size. Normal systolic function. Atria Normal left atrium. Normal right atrium. Bubble contrast study negative for right to left interatrial shunt. Mitral Valve Bileaflet diffuse mitral valve thickening. Tricuspid Valve Normal tricuspid valve. Aortic Valve Normal aortic valve. Trisinus/trileaflet aortic valve. Pulmonic Valve Normal pulmonic valve. Mild (1+) eccentric pulmonic valve insufficiency. Great Vessels Mild to moderately dilated aortic root. The pulmonary artery is normal size. Normal inferior vena cava. Pericardium/Pleural No pericardial effusion. Medication 22 gauge I.V. with prn adaptor inserted into left arm. Performed a rapid injection of agitated mix of 9 cc saline and 1cc air to assess for atrial septal defect. MMode/2D Measurements & Calculations LVIDd: 3.3 cm IVSd: 1.4 cm Ao root diam: 4.1 cm LVIDs: 1.9 cm LVPWd: 1.4 cm RVDd: 3.0 cm FS: 41.7 % LAV(MOD-bp): 52.2 ml LVAd ap4: 31.2 cm2 LVAd ap2: 28.6 cm2 LAV(MOD-bp) Indexed: 25.5 ml/m2 LVLd ap4: 8.6 cm LVLd ap2: 8.4 cm LAV(MOD-sp2): 60.8 ml EDV(MOD-sp4): 94.2 ml EDV(MOD-sp2): 82.2 ml LAV(MOD-sp4): 36.0 ml EDV(sp4-el): 96.2 ml EDV(sp2-el): 82.8 ml LVAs ap4: 18.9 cm2 LVAs ap2: 17.2 cm2 LVLs ap4: 7.5 cm LVLs ap2: 7.5 cm ESV(MOD-sp4): 42.4 ml ESV(MOD-sp2): 36.0 ml ESV(sp4-el): 40.5 ml ESV(sp2-el): 33.5 ml EF(MOD-sp4): 55.0 % EF(MOD-sp2): 56.2 % EF(sp4-el): 57.9 % SV(MOD-sp4): 51.8 ml SV(MOD-sp2): 46.2 ml SV(sp4-el): 55.7 ml LA A4 area: 14.3 cm2 LA dimension(2D): 3.0 cm RA A4 area: 11.9 cm2 TAPSE: 1.7 cm Time Measurements MV dec time: 0.31 sec Doppler Measurements & Calculations MV E max kenneth: 50.4 cm/sec Lat Peak E' Kenneth: 9.0 cm/sec Med Peak E' Kenneth: 7.8 cm/sec MV A max kenneth: 102.4 cm/sec E/E' lat: 5.6 E/E' med: 6.5 MV E/A: 0.49 Ao V2 max: 169.4 cm/sec LV V1 max: 106.9 cm/sec MV dec slope: 162.3 cm/sec2 Ao max P.5 mmHg LV V1 max P.6 mmHg Ao V2 mean: 112.6 cm/sec LV V1 mean P.7 mmHg Ao mean P.9 mmHg LV V1 mean: 77.5 cm/sec Ao V2 VTI: 35.6 cm LV V1 VTI: 21.5 cm AV (velocity ratio): 0.61 PA V2 max: 130.7 cm/sec PA V2 mean: 91.2 cm/sec ECHO/Echo Complete Interpretation Summary Normal LV size. Left ventricular systolic function is normal. The estimated ejection fraction is 65 %. Bubble contrast study negative for right to left interatrial shunt. Mild to moderately dilated aortic root. Ordering Physician: Candido Santiago Referring Physician: Yaquelin Joe Performed By: Danielle Lozada RDCS
--- OUTSIDE RECORDS SUMMARY | 2023-05-02 10:50 | XMS RPT_ITS | CCD ---
Author Name Unknown Address [address] [place] [address] Organization [facility] Care Team Providers Care Size Mixer Name Role Phone JOE HERNANDEZ Unavailable Unavailable Joe Hernandez CNP Unavailable [phone] Joe Hernandez CNP Primary Care Provider Chace Polk DO Unavailable [phone] Joe Hernandez CNP Unavailable [phone] Joe Hernandez CNP Primary Care Provider [phone] Jam LOERA Chace A Unavailable [phone] YULIANA SEWELL Attending Unavailable JOE HERNANDEZ Referring Unavailable JOE HERNANDEZ Primary Care Unavailable Allergies Allergy Classification Reported Allergen(s) Allergy Type Date of Onset Reaction(s) Facility (1 source) Seasonal allergy; Translations: [SEASONAL ALLERGIES] Propensity to adverse reactions (disorder) 8 [facility] Other [facility] (2 sources) Amoxicillin / Clavulanate Drug Allergy 0 Rash [facility] (2 sources) Seasonal allergy Propensity to adverse reactions to drug 8 [facility] Medications Current Medications Medication Drug Class(es) Dates Sig (Normalized) Sig (Original) acetaminophen 500 mg oral capsule (2 sources) Acetaminophen 50 0 MG capsule Take by mouth as needed. 0 Active allopurinol 100 mg oral tablet (1 source) Xanthine Oxidase Inhibitor Start: 10-10-2022 take 1 tablet by mouth once daily Allopurinol 100 MG tablet Take 1 tablet by mouth daily. 0 10/10/2022 Active fluticasone propionate 0.05 mg/actuat metered dose nasal spray (2 sources) Corticosteroid fluticasone 50 MCG/ACT Suspension nasal spray 2 sprays by Nasal route as needed. 0 Active losartan potassium 100 mg oral tablet (1 source) Angiotensin 2 Receptor Randa Start: 01-08-2023 take 1 tablet by mouth once daily losartan 100 MG tablet Take 1 tablet by mouth daily. 0 01/08/2023 Active Completed/Discontinued Medications Medication Drug Class(es) Dates Sig (Normalized) Sig (Original) stannous fluoride 0.004 mg/mg oral gel (1 source) Start: 11-03-2017 End: 10-29-2021 take 3 drop(s) by mouth at bedtime Stannous Fluoride (OMNII GEL) 0.4 % Gel Apply 3 drops to teeth at bedtime. Spread evenly inside tray. Leave in mouth 15min. Do not eat or drink for at least 30 min 120 Tube 8 11/03/2017 10/29/2021 Discontinued (Medication Reconciliation (suppress cancel msg)) 120 actuat testosterone 10 mg/actuat topical gel (2 sources) Androgen Start: 05-11-2016 End: 01-13-2023 Testosterone 10 MG/ACT (2%) Gel 1 Application every morning before breakfast. 0 05/11/2016 01/13/2023 Discontinued (Therapy completed) Problems Active Problems Problem Classification Problem Date Documented Da te Episodic/Chronic Cancer of head and neck (6 sources) Carcinoma of base of tongue ; Translations: [Malignant neoplasm of base of tongue] Onset: 09-12-2018 Chronic Cancer of testis (2 sources) Primary malignant neoplasm of testis; Translations: [Malignant neoplasm of unspecified testis, unspecified whether descended or undescended] Onset: 08-22-2017 08-22-2017 Chronic Disorders of lipid metabolism (2 sources) Dyslipidemia; Translations: [Hyperlipidemia, unspecified] 12-13-2019 Chronic Essential hypertension (2 sources) Benign essential hypertension; Translations: [Essential (primary) hypertension] 12-13-2019 Chronic Gout and other crystal arthropathies (2 sources) Gout; Translations: [Gout, unspecified] 12-13-2019 Chronic Other skin disorders (1 source) Localized swelling, mass and lump, neck; Translations: [Localized swelling, mass and lump, neck] Onset: 08-15-2017 Episodic Residual codes; unclassified (2 sources) Obstructive sleep apnea syndrome; Translations: [Obstructive sleep apnea (adult) (pediatric)] 12-13-2019 Chronic Past or Other Problems Problem Classification Problem Date Documented Da te Episodic/Chronic Mood disorders (2 sources) Mood disorders Onset: 10-29-2021 Resolved: 01-13-2023 10-29-2021 Results Test Name Value Interpretation Reference Range Facil ity Vital Signs Date Time Vital Sign Value Performing Clinician Faci lity 01-13-2023 10:00-0400 Diastolic blood pressure 90 mm[Hg] Yuliana Sewell MD Work Phone: [facility] 01-13-2023 10:00-0400 Systolic blood pressure 176 mm[Hg] Yuliana Sewell MD Work Phone: [facility] 01-13-2023 09:42-0400 Body mass index (BMI) [Ratio] 26.53 kg/m2 Yuliana Sewell MD Work Phone: [facility] 01-13-2023 09:42-0400 Body temperature 97.7 [degF] Yuliana Sewell MD Work Phone: [facility] 01-13-2023 09:42-0400 Body weight 86.27 kg Yuliana Sewell MD Work Phone: [facility] 01-13-2023 09:42-0400 Heart rate 68 /min Yuliana Sewell MD Work Phone: [facility] 01-13-2023 09:42-0400 Respiratory rate 16 /min Yuliana Sewell MD Work Phone: [facility] 01-13-2023 09:42-0400 SaO2% (BldA) [Mass fraction] 95 % Yuliana Sewell MD Work Phone: [facility] 10-29-2021 11:34-0400 Diastolic blood pressure 88 mm[Hg] Yuliana Sewell MD Work Phone: [facility] 10-29-2021 11:34-0400 Systolic blood pressure 172 mm[Hg] Yuliana Sewell MD Work Phone: [facility] 10-29-2021 10:41-0400 Body mass index (BMI) [Ratio] 26.43 kg/m2 Yuliana Sewell MD Work Phone: [facility] 10-29-2021 10:41-0400 Body temperature 98.71 [degF] Yuliana Sewell MD Work Phone: [facility] 10-29-2021 10:41-0400 Body weight 85.96 kg Yuliana Sewell MD Work Phone: [facility] 10-29-2021 10:41-0400 Heart rate 72 /min Yuliana Sewell MD Work Phone: [facility] 10-29-2021 10:41-0400 Respiratory rate 14 /min Yuliana Sewell MD Work Phone: [facility] 10-29-2021 10:41-0400 SaO2% (BldA) [Mass fraction] 96 % Yuliana Sewell MD Work Phone: [facility] Encounters Encounter Date Encounter Type Care Provider Facility Start: 01-13-2023 ambulatory YULIANA SEWELL Facility:[facility] Start: 01-13-2023 End: 01-13-2023 Office outpatient visit 15 minutes Yuliana Sewell MD Work Phone: Department of Otolaryngology Plan of Treatment Date Care Activity Detail Author Start: 01-13-2023 End: 01-13-2023 Patient encounter procedure 01/13/2023 Office Visit Otolaryngology Yuliana Sewell MD [address] [place] [address] Department of Otolaryngology Start: 12-13-2022 Influenza vaccination INFLUENZA VACCINE (#1) [facility] Start: 12-13-2021 Influenza vaccination INFLUENZA VACCINE (#1) [facility] Start: 09-09-2021 Tetanus vaccination TETANUS [facility] Start: 06-12-2021 COVID-19 VACCINE (4 - Booster for Pfizer series) COVID-19 VACCINE (4 - Booster for Pfizer series) [facility] Start: 04-09-2021 COVID-19 VACCINE (4 - Pfizer series) COVID-19 VACCINE (4 - Pfizer series) [facility] Start: 12-07-2020 Zoster vaccine hzv live for subcutaneous use ZOSTER (SHINGLES) VACCINE (2 of 2) [facility] Start: 09-06-2011 Pneumococcal vaccination PNEUMOCOCCAL VACCINE SERIES (1 - PCV) [facility] Start: 1996 Prostate specific antigen measurement PROSTATE CANCER SCREENING DISCUSSION [facility] Start: 1996 Zoster vaccine hzv live for subcutaneous use ZOSTER (SHINGLES) VACCINE (1 of 2) [facility] Start: 09-06-1991 Colonoscopy COLORECTAL CANCER SCREENING DISCUSSION [facility] Start: 09-06-1991 Screening for malignant neoplasm of colon COLORECTAL CANCER SCREENING DISCUSSION [facility] Start: 1986 Fasting lipid profile LIPID SCREENING [facility] Start: 1965 Third diphtheria, tetanus and acellular pertussis (DTaP) vaccination TDAP (ADULT) [facility] Start: 1964 Tetanus vaccination TETANUS [facility] Start: 1946 Hepatitis C antibody, confirmatory test HEPATITIS C VIRUS SCREENING [facility] Start: 1945 Hepatitis C screening HEPATITIS C VIRUS SCREENING [facility] Immunizations Immunization Date Immunization Notes Care Provider Fa cility 10-12-2020 zoster vaccine, unspecified formulation Yuliana Sewell MD Work Phone: [facility] 01-24-2020 influenza virus vaccine, unspecified formulation Yuliana Sewell MD Work Phone: [facility] 05-05-2019 influenza virus vaccine, unspecified formulation Yuliana Sewell MD Work Phone: [facility] Payers Date Payer Category Payer Medicare MEDICARE [employer] [place] MEDICARE [employer] PPO [id number] 2021-Present [address] [place] [id number] 2021 Medicare [id number] 1945 Unknown [id number] Social History Date Type Detail Facility Start: 08-25-2017 Tobacco smoking stat us NHIS Never smoked tobacco [facility] Start: 08-25-2017 Tobacco use and exposure Smokeless tobacco non-user [facility] Start: 10-29-2021 End: 01-14-2023 Alcohol intake Current drinker of alcohol (finding) [facility] Start: 08-25-2017 History SDOH Alcohol Comment few drinks a year [facility] Start: 1945 Sex Assigned At Not on file [facility] Start: 01-13-2023 History of Social function [facility] Start: 01-13-2023 Tobacco use panel [facility] Adolescent depressio n screening assessment 0 [facility] Start: 10-29-2021 Gender identity Identifies as male gender (finding) [facility] History of Present illness Narrative 01-13-2023 Riana Stroud RN - 01/13/2023 9:15 AM ANANDA Miguel - 01/13/2023 9:15 AM Shawnee Sewell MD - 01/13/2023 9:15 AM EDT Note Date & Type Note Facility 01-13-2023 History of Present illness Narrative Pt denies BIRD, chest pain, blurred vision. States he will follow up with PCP regarding BP. HPI: Juan Barrios was seen 01/13/2023 in the [facility] for follow up visit history of [id number] p16+ SCCa right base of tongue. Patient is S/P definitive COMMERCIAL CONSTRUCTION ESTIMATOR carried out locally and completed on 12/25/17. Post-tx PET/CT on 03/25/18-- MABLE. History and review of systems is negative for changes since last visit. Continues to endorse improvement in his swallow. Denies throat pain, dysphagia, odynophagia, otalgia, hemoptysis, voice change, SOB or significant weight loss. Continues to follow at the [facility]. Nursing documentation reviewed. 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 Past Surgical History: Procedure Laterality Date ARTHROPLASTY HIP TOTAL Right 05/24/2019 LARYNGOSCOPY WITH BX N/A 09/11/2017 Laterality: N/A; Surgeon: Yuliana Sewell MD; Location: [facility] MAIN OR ESOPHAGOSCOPY DIAGNOSTIC N/A 09/11/2017 Laterality: N/A; Surgeon: Yuliana Sewell MD; Location: [facility] MAIN OR BRONCHOSCOPY FLEXIBLE DIAGNOSTIC N/A 09/11/2017 Laterality: N/A; Surgeon: Yuliana Sewell MD; Location: [facility] MAIN OR LYMPHADENECTOMY CERVICAL (MODIFIED RADICAL NECK DISSECTION) Right 09/11/2017 Laterality: Right; Surgeon: Yuliana Sewell MD; Location: [facility] MAIN OR EXCISION SUBMANDIBULAR GLAND Right 09/11/2017 Laterality: Right; Surgeon: Yuliana Sewell MD; Location: [facility] MAIN OR CERVICAL FUSION ORCHIECTOMY Bilateral REPAIR SHOULDER ROTATOR CUFF Current Outpatient Medications Medication Sig Dispense Refill Acetaminophen 500 MG capsule Take by mouth as needed. Allopurinol 100 MG tablet Take 1 tablet by mouth daily. fluticasone 50 MCG/ACT Suspension nasal spray 2 sprays by Nasal route as needed. losartan 100 MG tablet Take 1 tablet by mouth daily. No current facility-administered medications for this visit. Allergies Allergen Reactions Augmentin [Amoxicillin-Pot Clavulanate] Rash Seasonal Other reaction(s): Intolerance Exam: BP 176/90 (BP Position: Sitting) Pulse 68 Temp 97.7 F (36.5 C) (Temporal) Resp 16 Wt 86.3 kg (190 lb 3.2 oz) SpO2 95% BMI 26.53 kg/m Smoking Status Never Documented vital signs from today's visit reviewed. Physical exam including head and neck examination of the oral cavity, oropharynx, larynx, and hypopharynx including indirect mirror exam as well as inspection and palpation of the face, parotid and neck is remarkable for findings consistent with posttreatment postoperative changes and negative for new lesions, masses or lymphadenopathy. Healing well. No active infection. Airway is adequate. Impression/Plan: Overall I believe patient is doing well over 5 years from cancer treatment. MABLE on exam. Continue follow up with local med onc/rad onc. RTC PRN. HPI: Juan Barrios was seen 01/13/2023 in the [facility] for follow up visit history of [id number] p16+ SCCa right base of tongue. Patient is S/P definitive COMMERCIAL CONSTRUCTION ESTIMATOR carried out locally and completed on 12/25/17. Post-tx PET/CT on 03/25/18-- MABLE. History and review of systems is negative for changes since last visit. Continues to endorse improvement in his swallow. Denies throat pain, dysphagia, odynophagia, otalgia, hemoptysis, voice change, SOB or significant weight loss. Continues to follow at the [facility]. Nursing documentation reviewed. 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 Past Surgical History: Procedure Laterality Date ARTHROPLASTY HIP TOTAL Right 05/24/2019 LARYNGOSCOPY WITH BX N/A 09/11/2017 Laterality: N/A; Surgeon: Yuliana Sewell MD; Location: [facility] MAIN OR ESOPHAGOSCOPY DIAGNOSTIC N/A 09/11/2017 Laterality: N/A; Surgeon: Yuliana Sewell MD; Location: [facility] OR BRONCHOSCOPY FLEXIBLE DIAGNOSTIC N/A 09/11/2017 Laterality: N/A; Surgeon: Yuliana Sewell MD; Location: [facility] OR LYMPHADENECTOMY CERVICAL (MODIFIED RADICAL NECK DISSECTION) Right 09/11/2017 Laterality: Right; Surgeon: Yuliana Sewell MD; Location: [facility] OR EXCISION SUBMANDIBULAR GLAND Right 09/11/2017 Laterality: Right; Surgeon: Yuliana Sewell MD; Location: [facility] MAIN OR CERVICAL FUSION ORCHIECTOMY Bilateral REPAIR SHOULDER ROTATOR CUFF Current Outpatient Medications Medication Sig Dispense Refill Acetaminophen 500 MG capsule Take by mouth as needed. Allopurinol 100 MG tablet Take 1 tablet by mouth daily. fluticasone 50 MCG/ACT Suspension nasal spray 2 sprays by Nasal route as needed. losartan 100 MG tablet Take 1 tablet by mouth daily. No current facility-administered medications for this visit. Allergies Allergen Reactions Augmentin [Amoxicillin-Pot Clavulanate] Rash Seasonal Other reaction(s): Intolerance Exam: BP 176/90 (BP Position: Sitting) Pulse 68 Temp 97.7 F (36.5 C) (Temporal) Resp 16 Wt 86.3 kg (190 lb 3.2 oz) SpO2 95% BMI 26.53 kg/m Smoking Status Never Documented vital signs from today's visit reviewed. Physical exam including head and neck examination of the oral cavity, oropharynx, larynx, and hypopharynx including indirect mirror exam as well as inspection and palpation of the face, parotid and neck is remarkable for findings consistent with posttreatment postoperative changes and negative for new lesions, masses or lymphadenopathy. Healing well. No active infection. Airway is adequate. Impression/Plan: Overall I believe patient is doing well over 5 years from cancer treatment. MABLE on exam. He wants to continue follow up with local med onc/rad onc. RTC PRN. Attending Physician Note I independently interviewed, examined and formulated the medical decision making for Mr. Barrios with Cleo Laureano PA-C. Details of my interview, examination findings, and medical decision-making confirmed the findings above. Doing well. MABLE based on my examination. Fu/ in PRN. [facility] this encounter [facility]23 Patient Instructions Note Date & Type Note Facility 01-13-2023 Instructions ANANDA Moreno - 01/13/2023 9:15 AM EDT With your history of radiation, please have your primary care physician check your TSH annually. documented in this encounter [facility] History of Present illness Narrative 10-29-2021 Pam Phelps APRN-INSULATION BOARD COATER OPERATOR - 10/29/2021 11:15 AM Shawnee Sewell MD - 10/29/2021 11:15 AM EDT Note Date & Type Note Facility 10-29-2021 History of Present illness Narrative HPI: Juan Barrios was seen 10/29/2021 in the [facility] for follow up visit history of [id number] p16+ SCCa right base of tongue. Patient is S/P definitive COMMERCIAL CONSTRUCTION ESTIMATOR carried out locally and completed on 12/25/17. Post-tx PET/CT on 03/25/18-- MABLE. History and review of systems is negative for changes since last visit. Continues to endorse improvement in his swallow. Denies throat pain, dysphagia, odynophagia, otalgia, hemoptysis, voice change, SOB or significant weight loss. Continues to follow at the [facility]. Nursing documentation reviewed. 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 Past Surgical History: Procedure Laterality Date ARTHROPLASTY HIP TOTAL Right 05/24/2019 LARYNGOSCOPY WITH BX N/A 09/11/2017 Laterality: N/A; Surgeon: Yuliana Sewell MD; Location: [facility] MAIN OR ESOPHAGOSCOPY DIAGNOSTIC N/A 09/11/2017 Laterality: N/A; Surgeon: Yuliana Sewell MD; Location: [facility] MAIN OR BRONCHOSCOPY FLEXIBLE DIAGNOSTIC N/A 09/11/2017 Laterality: N/A; Surgeon: Yuliana Sewell MD; Location: [facility] MAIN OR LYMPHADENECTOMY CERVICAL (MODIFIED RADICAL NECK DISSECTION) Right 09/11/2017 Laterality: Right; Surgeon: Yuliana Sewell MD; Location: [facility] MAIN OR EXCISION SUBMANDIBULAR GLAND Right 09/11/2017 Laterality: Right; Surgeon: Yuliana Sewell MD; Location: [facility] MAIN OR CERVICAL FUSION ORCHIECTOMY Bilateral REPAIR SHOULDER ROTATOR CUFF Current Outpatient Medications Medication Sig Dispense Refill Acetaminophen 500 MG capsule Take by mouth as needed. fluticasone 50 MCG/ACT Suspension nasal spray 2 sprays by Nasal route as needed. Testosterone 10 MG/ACT (2%) Gel 1 Application every morning before breakfast. No current facility-administered medications for this visit. Allergies Allergen Reactions Augmentin [Amoxicillin-Pot Clavulanate] Rash Seasonal Other reaction(s): Intolerance Exam: BP (!) 161/95 Comment: RN notified Pulse 72 Temp 98.7 F (37.1 C) (Oral) Resp 14 Wt 86 kg (189 lb 8 oz) SpO2 96% BMI 26.43 kg/m Smoking Status Never Smoker Documented vital signs from today's visit reviewed. Physical exam including head and neck examination of the oral cavity, oropharynx, larynx, and hypopharynx including indirect mirror exam as well as inspection and palpation of the face, parotid and neck is remarkable for findings consistent with posttreatment postoperative changes and negative for new lesions, masses or lymphadenopathy. Healing well. No active infection. Airway is adequate. Impression/Plan: Overall I believe patient is doing well and healing well. MABLE on exam. Continue follow up with local med onc/rad onc. RTC 12 mo or sooner for new concerns. HPI: Juan Barrios was seen 10/29/2021 in the [facility] for follow up visit history of [id number] p16+ SCCa right base of tongue. Patient is S/P definitive COMMERCIAL CONSTRUCTION ESTIMATOR carried out locally and completed on 12/25/17. Post-tx PET/CT on 03/25/18-- MABLE. History and review of systems is negative for changes since last visit. Continues to endorse improvement in his swallow. Denies throat pain, dysphagia, odynophagia, otalgia, hemoptysis, voice change, SOB or significant weight loss. Continues to follow at the [facility]. Nursing documentation reviewed. 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 Past Surgical History: Procedure Laterality Date ARTHROPLASTY HIP TOTAL Right 05/24/2019 LARYNGOSCOPY WITH BX N/A 09/11/2017 Laterality: N/A; Surgeon: Yuliana Sewell MD; Location: [facility] MAIN OR ESOPHAGOSCOPY DIAGNOSTIC N/A 09/11/2017 Laterality: N/A; Surgeon: Yuliana Sewell MD; Location: [facility] MAIN OR BRONCHOSCOPY FLEXIBLE DIAGNOSTIC N/A 09/11/2017 Laterality: N/A; Surgeon: Yuliana Sewell MD; Location: [facility] MAIN OR LYMPHADENECTOMY CERVICAL (MODIFIED RADICAL NECK DISSECTION) Right 09/11/2017 Laterality: Right; Surgeon: Yuliana Sewell MD; Location: [facility] MAIN OR EXCISION SUBMANDIBULAR GLAND Right 09/11/2017 Laterality: Right; Surgeon: Yuliana Sewell MD; Location: [facility] MAIN OR CERVICAL FUSION ORCHIECTOMY Bilateral REPAIR SHOULDER ROTATOR CUFF Current Outpatient Medications Medication Sig Dispense Refill Acetaminophen 500 MG capsule Take by mouth as needed. fluticasone 50 MCG/ACT Suspension nasal spray 2 sprays by Nasal route as needed. Testosterone 10 MG/ACT (2%) Gel 1 Application every morning before breakfast. No current facility-administered medications for this visit. Allergies Allergen Reactions Augmentin [Amoxicillin-Pot Clavulanate] Rash Seasonal Other reaction(s): Intolerance Exam: BP 172/88 Pulse 72 Temp 98.7 F (37.1 C) (Oral) Resp 14 Wt 86 kg (189 lb 8 oz) SpO2 96% BMI 26.43 kg/m Smoking Status Never Smoker Documented vital signs from today's visit reviewed. Physical exam including head and neck examination of the oral cavity, oropharynx, larynx, and hypopharynx including indirect mirror exam as well as inspection and palpation of the face, parotid and neck is remarkable for findings consistent with posttreatment postoperative changes and negative for new lesions, masses or lymphadenopathy. Healing well. No active infection. Airway is adequate. Impression/Plan: Overall I believe patient is doing well and healing well. MABLE on exam. Continue follow up with local med onc/rad onc. RTC 12 mo or sooner for new concerns. Attending Physician Note I independently interviewed, examined and formulated the medical decision making for Mr. Barrios with Pam Phelps APRN-VON. Details of my interview, examination findings, and medical decision-making confirmed the findings above. I have personally amended the documentation where appropriate. Doing well. MABLE based on my examination. Fu/ in 12 month. documented in this encounter [facility] Instructions 10-29-2021 Patient Instructions Note Date & Type Note Facility 10-29-2021 Instructions ALISSA Hurst - 10/29/2021 11:07 AM EDT Please call Dr. Sewell's nurse Diane at [phone] if you notice any new lumps in head or neck, new onset of difficulty with swallowing, persistent ear pain, hoarseness or new pains in head and neck that don't go away for 2 weeks. For covid vaccine call [phone] ([phone]). documented in this encounter [facility] Evaluation note Note Date & Type Note Facility documented in this encounter [facility] Evaluation note Note Date & Type Note Facility documented in this encounter [facility] Summary Purpose Family History No Family History Records FoundNo Family History Records Found Advance Directives No Advanced Directives Records FoundLatest Code Status on File Code Status Date Activated Date Inactivated Comments Full Code 09/11/2017 7:05 PM Full Code 09/11/2017 9:04 AM 09/11/2017 7:05 PM Latest Code Status on File Code Status Date Activated Date Inactivated Comments Full Code 09/11/2017 7:05 PM Code Status History Code Status Date Activated Date Inactivated Comments Full Code 09/11/2017 9:04 AM 09/11/2017 7:05 PM Additional Source Comments (unrecognized sect ion and content) No Status Records FoundNo Status Records Found INFORMATION SOURCE (unrecogn ized section and content) DATE CREATED AUTHOR AUTHOR'S ORGANIZ ATION 01/18/2023 [facility] Reason for Visit (unrecogniz ed section and content) Care Teams (unrecognized sec tion and content) Size Mixer Relationship Specialty Start Date End Date Joe Hernandez CNP [address] [place] [address] PCP - General Certified Nurse Practitioner 09/05/17 Joe Hernandez CNP [address] [place] [address] Referring Provider Certified Nurse Practitioner 08/18/17 Chace Polk DO [address] [facility] [address] [place] [address] Radiation Oncologist Radiation Oncology 05/10/19 FOR RECORDS PERTAINING TO PATIENTS WHO ARE OR HAVE BEEN ENROLLED IN A CHEMICAL DEPENDENCY/SUBSTANCEABUSE PROGRAM, SOME INFORMATION MAY BE OMITTED. This clinical summary was aggregated from multiple sources. Caution should be exercised in using it in the provision of clinical care. This summary normalizes information from multiple sources, and as a consequence, information in this document may materially change the coding, format and clinical context of patient data. In addition, data may be omitted in some cases. CLINICAL DECISIONS SHOULD BE BASED ON THE PRIMARY CLINICAL RECORDS. [employer] provides no warranty or guarantee of the accuracy or completeness of information in this document.
== END | disposition home or self-care (01) ==
PROVIDERS: PCP Nurse Practitioner; Referring Provider Internal Medicine Cardiovascular Disease; Visit Provider Internal Medicine Cardiovascular Disease
DX: Z01.818 Encounter for other preprocedural examination (principal); I10 Essential (primary) hypertension
CPT/HCPCS: 93306; A4216

== ENCOUNTER → 2023-06-30 | Outpatient (CLI) | payer MEDICARE, SELFPAY ==
[2022-10-29 17:47] VITALS: BMI 29.5
[2023-06-30 22:40] LABS: Hematocrit 36.8 % (40-54); Hemoglobin 11.9 g/dL (13.0-16.5); Mean Corp Hgb Conc 32.3 g/dL (32-36); Mean Corpuscular Hgb 27.9 pg (27.0-32.0); Mean Corpuscular Volume 86.2 fL (80-94); Mean Platelet Vol. 9.1 fl (6.2-12.0); Platelet Count 250 K/mm3 (150-450); RBC Distribution Width CV 13.9 % (11.6-14.6); RBC Distribution Width SD 43.6 fl (35.1-43.9); Red Blood Count 4.27 M/mm3 (4.6-6.2); White Blood Count 3.7 K/mm3 (4.4-11.0)
[2023-06-30 22:55] LABS: Vitamin B12 309 pg/mL (211-911)
[2023-06-30 23:08] LABS: CRP, High Sensitivity Cardiac 4.09 mg/L; Thyroid Stim Hormone (TSH) 3.95 uIU/mL (0.358-3.74); Troponin-I HS 14 pg/mL (3.0-78.0)
[2023-07-17 13:08] LABS: VITAMIN B6 9.2 ug/L (3.4-65.2)
== END | disposition home or self-care (01) ==
PROVIDERS: PCP Nurse Practitioner; Visit Provider Nurse Practitioner
DX: R53.83 Other fatigue (principal); F03.90 Unspecified dementia, unspecified severity, without behavioral disturbance, psychotic disturbance, mood disturbance, and anxiety; R29.898 Other symptoms and signs involving the musculoskeletal system; E55.9 Vitamin D deficiency, unspecified; D64.9 Anemia, unspecified; D72.819 Decreased white blood cell count, unspecified; K59.00 Constipation, unspecified; I10 Essential (primary) hypertension
CPT/HCPCS: 81291; 82306; 82533; 82607; 82746; 84207; 84443; 84484; 85027; 86141

== ENCOUNTER 2023-08-27 09:30 | Outpatient (RCR) | payer MEDICARE, SELFPAY ==
[2021-02-26 20:54] VITALS: BMI 29.5
--- NOTE | 2021-06-05 14:26 | HP.SP.AD ---
History - History Date of Eval: 06/05/21 Medical Diagnosis (from RX): History of primary malignant neoplasm of base of tongue (Z85.810) Date of Onset of Diagnosis: 09/11/2017 Previous speech therapy: Yes Results: Pt trained in oropharyngeal strengthening and followed for ongoing assessment of diet tolerance and education re: impacts of radiation in 2018 when patient underwent concurrent chemoradiation therapy. Most recent MBS study 10/18/2019 recommended soft textures / thin liquids with use of strategies to decrease aspiration risk. 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 Cervical fusion (2013). 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 Right Hearing Abillity: Use of Hearing Aid Left Hearing Abillity: Use of Hearing Aid Visual Assistive Devices: Glasses Patients Living Arrangements: , [place] Patient Allergies - Allergies Allergies amoxicillin [From Augmentin] Adverse Reaction (Intermediate, Verified 05/28/21 14:05) rash clavulanic acid [From Augmentin] Adverse Reaction (Intermediate, Verified 05/28/21 14:05) rash Subjective Oral Motor - Comments Comments: Tightness in neck Objective Oral Motor - Oral Status Dentition: WNL Additional: Caps on molars - Labial Impairment: WNL Closure: WNL Pucker: WNL Retraction: WNL Alternating Pucker/Retraction: WNL - Lingual Impairment: WNL Protrusion: WNL Lateralization: WNL - Jaw Impairment: WNL - Oral Motor Comments Comments: Manually assessed anterior neck for fascial restrictions. The patient demonstrated fascial restrictions in the region of his scar from his right selective neck dissection. - Respiratory Status Respiratory Status: Room Air Subjective Dysphagia - Symptoms Reported Symptoms/Problems with: Food gets stuck - Current Diet Solids Current Diet: Regular Other: He requires thorough chewing and slow rate. - Current Diet Liquids Current Liquids: Thin Objective Dysphagia - Administered by Administered by: Self - Thin Liquids Administred via: Cup, Straw Comments: The patient consumed single and sequential sips with mild delay initiating swallow, audible swallows, and need for multiple swallows on each sip. He demonstrated no overt s/s of aspiration. - Pureed Oral Holding: No Gagging: No Patient Report: Pt reported pharyngeal stasis, cleared with multiple swallows. Comments: He consumed bites with timely swallow, no overt s/s of aspiration, oral residue WNL. - Regular Patient Report: Pt reported pharyngeal stasis, cleared with multiple swallows. Comments: He consumed bites with prolonged mastication, no overt s/s of aspiration, oral residue WNL. - Results Swallowing Within Normal Limits: Yes Swallowing Diagnosis: Oropharyngeal Phase Dysphagia Severity: Mild Dysphagia Assessment - Swallowing Impairment Contributing Factors to Swallowing Impairment: Delayed Swallow Initiation Other: Sensation of pharyngeal stasis. Need for multiple swallows. - Impact Impact on Safety & Functioning: Risk for Aspiration - Recommendations Modified Barium Swallow/Cookie Swallow Recommended: Yes Swallowing Treatment: Yes - Diet Texture Recommendations Solids Other: Regular Other Solid: Consider adding a sauce/gravy to dry foods Liquids: Thin - Safety Saftey Precautions/Swallowing Recommendations (Check all that Apply): Alternate Liquids & Solids Other: Upright for po intake - Compensatory Strategies Compensatory Strategies: Double Swallow FOIS - Functional Oral Intake Scale Total oral diet with multiple consistencies, but requiring special preparation or compensations: Level 5 Plan - Plan Plan: Will recommend the patient for repeat MBS study to objectively assess oropharyngeal dysphagia related to history of cancer of tongue base to determine least restrictive diet textures, recommended aspiration precautions, and to identify swallowing impairments for implementation of oropharyngeal exercise program if warranted. Will determine frequency of speech therapy sessions after completion of MBS study. Without skilled ST services, the patient is at risk for aspiration. - Recommendations MBS: Yes Treatment Warranted: Yes - Frequency Frequency: TBD after MBS study Duration: 12 Months - Prognosis Prognosis: Excellent - Goals that are Established: Determination:: Goals will be added/modified as deemed necessary and appropriate. Therapy will be discontinued when results of re-evaluation indicate therapy is no longer needed or lack of progress has been documented. - Goal #1-5 Goal #1: The patient will consume least restrictive diet textures without overt s/s of aspiration with minimal verbal cues for use of compensatory strategies to decrease risk for aspiration. Goal #2: The patient will participate in MBS study to objectively assess swallow function and provide recommendations for safest, least restrictive diet and compensatory strategies to reduce risk for aspiration. Goal #3: The patient will complete an oropharyngeal exercise program during and post radiation treatment independently to improve and maintain strength, ROM, and coordination of swallowing mechanism (X10 repetitions, 3-5X daily). Education - Patient Instruction Patient Education: Diagnosis, Treatment Plan, Goals, Safety Precautions, Diet Level Other Education: FIBREGLASS LAMINATOR educated pt in long-term effects of chemoradiation treatment on swallow function Person Taught: Patient Teaching Method: Discussion Response to teaching: Verbalize understanding, Reinforcement needed
--- NOTE | 2022-02-05 14:57 | ST.MBS ---
Modified Barium Swallow - Patient Information Study Date: 02/05/22 Study Time: 13:00 Direct Billable Minutes: 113 Total Minutes procedure & reportin Diagnosis: Hx of primary malignant neoplasm of base of tongue (Z85.810) Referring Physician: Chace Polk Reason for Referral: Objectively assess swallow function, risk for aspiration, and determine recommendations for least restrictive diet textures and compensatory strategies to improve safety of swallow. 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 Cervical fusion (2013). History of oropharyngeal phase dysphagia s/p R submandibular gland excision and right selective neck dissection with concurrent chemoradiation. Most recent MBSS 06/18/2021 revealed mild oropharyngeal phase dysphagia and recommended Regular Textures - Easy to Chew textures (IDDSI Level 7), Thin Liquids; Compensatory Strategies: Small Bites, Small Sips - Consider use of effortful swallows. Cough and re-swallow if wet vocal quality with liquids., Slow Rate, Multiple Swallows, Sitting upright. He participated in oropharyngeal strengthening in junction with myofascial release following the study for 4 visits from 06/25/2021-07/06/2021. He has since been completing a home exercise program to maintain optimal swallow function. Repeat MBSS recommended by OTHER WOOD PROCESSING MACHINE OPERATOR to monitor risk for worsening dysphagia. Current Diet Ordered: Regular textures / Thin liquids Dentition: WNL Mental Status: WNL Respiratory Status: Oxygenating on Room Air - Penetration-Aspiration Scale Penetration-Aspiration Scale: OBJECTIVE ASSESSMENT OF SWALLOW FUNCTION (QUANTITATIVE ? PER TRIAL): PENETRATION / ASPIRATION SCALE (DIAZ): 1 = does not enter airway 2 = enters airway/above vocal folds/ejected 3 = enters airway/above vocal folds/not ejected 4 = enters airway/contacts vocal folds/ejected 5 = enters airway/contacts vocal folds/not ejected 6 = enters airway/below vocal folds/ejected 7 = enters airway/below vocal folds/not ejected despite effort 8 = enters airway/below vocal folds/no effort VIDEOFLOROSCOPIC SCALE SCORE (DIAZ): Grade I = aspiration of material that has penetrated into the laryngeal vestibule, intact cough reflex Grade II = aspiration < 10 % of the bolus, intact cough reflex Grade III = aspiration of < 10 % of the bolus, reduced cough reflex or aspiration of > 10 % of the bolus, intact cough reflex Grade IV = aspiration of > 10 % of the bolus, reduced cough reflex - Penetration-Aspiration Scale Score Thin Liquid via teaspoon Result: 7= enters airways/below vocal folds/not ejected despite effort - delayed, weak cough response Thin Liquid via teaspoon Trial 2 Result: 3= enters airways/above vocal folds/not ejected Thin Liquid via small single sip from cup Result: 5= enters airways/contacts vocal folds/not ejected [place] Thick Liquid via small single sip from cup Result: 3= enters airways/above vocal folds/not ejected Honey Thick Liquid via small single sip from cup Result: 2= enter airway/above vocal folds/ejected Pudding via teaspoon Result: 1= does not enter airway 1/2 Cookie Result: 1= does not enter airway Thin Liquid via single sip from straw Result: 3= enters airways/above vocal folds/not ejected Thin Liquid via single sip from straw Trial 2 Result: 3= enters airways/above vocal folds/not ejected Thin Liquid via single sip from straw Effortful swallow Result: 3= enters airways/above vocal folds/not ejected - SILENT POST PRANDIAL ASPIRATION OF THE PREVIOUS TRIAL prior to swallow onset of this trial Thin Liquid via single sip from straw Chin tuck with Cued Cough and re-swallow Result: 2= enter airway/above vocal folds/ejected - PAS score of 3 following chin tuck; however, cough and re-swallow ejected contrast from the laryngeal vestibule - Oral Phase Labial Seal: No Labial Escape Tongue Control During Bolus Hold: Posterior escape of less than half of bolus Bolus Preparation/Mastication: Timely and efficient chewing and mashing Bolus Transport/Lingual Motion: Delayed initiation of tongue motion Oral Residue: Trace residue lining oral structures - Pharyngeal Phase Initiation of Pharyngeal Swallow: Bolus head at posterior laryngeal surgace of epiglottis Soft Palate Elevation: Escape to nasopharynx Laryngeal Elevation: Partial superior movement thyroid cart/partial apprx aryt-epig petiole Anterior Hyoid Excursion: Partial anterior movement Epiglottic Movement: No inversion Laryngeal Vestibule Closure at Height of Swallow: Incomplete; narrow column of air/contrast in laryngeal vestibule Pharyngeal Stripping Wave: Present - diminished Pharyngoesophageal Segment Opening: Parital distension and partial duration; parital obstruction of flow Tongue Base Retraction: Narrow column of contrast between tongue base & post. pharyngeal wall Pharyngeal Residue: Collection of residue within or on pharyngeal structures - Treatment Strategies Effects of treatment strategies attemped:: Chin tuck = no impact observed Effortful swallow = little to no impact observed Cough and re-swallow = effective - Diagnosis/Impression Diagnosis: Mild-moderate oropharyngeal phase dysphagia (R13.12) Impression: The oral phase is primarily marked by... -Decreased bolus control with <1/2 of the bolus spilling posteriorly to the posterior surface of the epiglottis prior to swallow onset observed with thin liquids especially. -Mildly delayed tongue motion for A-P transport. -Trace oral residue after the swallow. -Timely, adequate mastication abilities. The pharyngeal phase is primarily marked by... -Decreased airway closure during the swallow due to decreased anterior hyoid excursion, no epiglottic inversion, and decreased laryngeal elevation. -Moderately-severely decreased tongue base retraction, severely decreased UES opening/duration, and no pharyngeal stripping wave with resulting moderate-severe pharyngeal residues after the swallow. -Aspiration of thin liquids by tsp with delayed weak cough reflex. SILENT post prandial aspiration of pharyngeal residue of thin liquids via straw. Consistent laryngeal penetration across thin and nectar thick liquid consistencies, which did not reliably eject from the laryngeal vestibule after the swallow. Use of cough and re-swallow was most effective in decreasing aspiration risk by effectively clearing residues remaining in the laryngeal vestibule. - Recommendations Diet: Regular Textures, Thin Liquids Compensatory Strategies: Small Bites, Small Sips - Cough and re-swallow each sip, Slow Rate, Alternate bites/solids and sips/liquids, Sitting upright, Remain sitting upright for 30 minutes after PO intake Recommend Repeat Modified Barium Swallow: Yes - Repeat MBSS in 6-12 months to monitor risk for worsening dysphagia/aspiration risk. Need for Skilled Speech Therapy Services: Yes Comment: Will recommend the patient for continued outpatient dysphagia therapy to address mild-moderate deficits in oropharyngeal swallow function. Will recommend the patient for oropharyngeal strengthening to improve bolus control, hyolaryngeal elevation/excursion, soft palate elevation, pharyngeal contraction, and duration of UES opening. The patient would benefit from continued education regarding diet recommendations and recommended compensatory strategies. Will discuss with radiation oncologist if the patient is appropriate for myofascial release in junction with oropharyngeal strengthening to promote improved mobility of soft tissue of the anterior neck and improved ROM of swallowing mechanism. Education Completed: 1. Described result of evaluation., 2. Pt understands evaluation & agrees with goals and treatment plan., 7. Pt requires further education on strategies & risks. - Status Active ST Patient: Active - Contact Information [facility] Speech Therapy:: Morena Rodriguez M.A. [facility]-OTHER WOOD PROCESSING MACHINE OPERATOR Speech-Language Pathologist [facility] [address] [place] [address] [email or web address] [phone] 02/05/22 15:31
--- NOTE | 2022-02-06 08:49 | HP.SP.DC_ITS ---
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 Cervical fusion (2013). History of oropharyngeal phase dysphagia s/p R submandibular gland excision and right selective neck dissection with concurrent chemoradiation. Most recent MBSS 06/18/2021 revealed mild oropharyngeal phase dysphagia and recommended Regular Textures - Easy to Chew textures (IDDSI Level 7), Thin Liquids; Compensatory Strategies: Small Bites, Small Sips - Consider use of effortful swallows. Cough and re-swallow if wet vocal quality with liquids., Slow Rate, Multiple Swallows, Sitting upright. He participated in oropharyngeal strengthening in junction with myofascial release following the study for 4 visits from 06/25/2021-07/06/2021. He has since been completing a home exercise program to maintain optimal swallow function. Repeat MBSS recommended by BUILDING PERFORMANCE SPECIALIST to monitor risk for worsening dysphagia.
--- NOTE | 2022-02-20 10:31 | ST ---
[facility] Speech Pathology [address] [place] [address] Modified Barium Swallow Study MR#: [id number] Acct: [id number] Name: JUAN BARRIOS Rep #: [id number] : 1945 76 From: Morena Rodriguez M.A., [facility]DESIGNER WRITER Modified Barium Swallow - Patient Information Study Date: 02/05/22 Study Time: 13:00 Direct Billable Minutes: 113 Total Minutes procedure & reportin Diagnosis: Hx of primary malignant neoplasm of base of tongue (Z85.810) Referring Physician: Chace Polk Reason for Referral: Objectively assess swallow function, risk for aspiration, and determine recommendations for least restrictive diet textures and compensatory strategies to improve safety of swallow. 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 Cervical fusion (2013). History of oropharyngeal phase dysphagia s/p R submandibular gland excision and right selective neck dissection with concurrent chemoradiation. Most recent MBSS 06/18/2021 revealed mild oropharyngeal phase dysphagia and recommended Regular Textures - Easy to Chew textures (IDDSI Level 7), Thin Liquids; Compensatory Strategies: Small Bites, Small Sips - Consider use of effortful swallows. Cough and re-swallow if wet vocal quality with liquids., Slow Rate, Multiple Swallows, Sitting upright. He participated in oropharyngeal strengthening in junction with myofascial release following the study for 4 visits from 06/25/2021-07/06/2021. He has since been completing a home exercise program to maintain optimal swallow function. Repeat MBSS recommended by DESIGNER WRITER to monitor risk for worsening dysphagia. Current Diet Ordered: Regular textures / Thin liquids Dentition: WNL Mental Status: WNL Respiratory Status: Oxygenating on Room Air - Penetration-Aspiration Scale Penetration-Aspiration Scale: OBJECTIVE ASSESSMENT OF SWALLOW FUNCTION (QUANTITATIVE ? PER TRIAL): PENETRATION / ASPIRATION SCALE (DIAZ): 1 = does not enter airway 2 = enters airway/above vocal folds/ejected 3 = enters airway/above vocal folds/not ejected 4 = enters airway/contacts vocal folds/ejected 5 = enters airway/contacts vocal folds/not ejected 6 = enters airway/below vocal folds/ejected 7 = enters airway/below vocal folds/not ejected despite effort 8 = enters airway/below vocal folds/no effort VIDEOFLOROSCOPIC SCALE SCORE (DIAZ): Grade I = aspiration of material that has penetrated into the laryngeal vestibule, intact cough reflex Grade II = aspiration < 10 % of the bolus, intact cough reflex Grade III = aspiration of < 10 % of the bolus, reduced cough reflex or aspiration of > 10 % of the bolus, intact cough reflex Grade IV = aspiration of > 10 % of the bolus, reduced cough reflex - Penetration-Aspiration Scale Score Thin Liquid via teaspoon Result: 7= enters airways/below vocal folds/not ejected despite effort - delayed, weak cough response Thin Liquid via teaspoon Trial 2 Result: 3= enters airways/above vocal folds/not ejected Thin Liquid via small single sip from cup Result: 5= enters airways/contacts vocal folds/not ejected [place] Thick Liquid via small single sip from cup Result: 3= enters airways/above vocal folds/not ejected [place] Thick Liquid via small single sip from cup Result: 2= enter airway/above vocal folds/ejected Pudding via teaspoon Result: 1= does not enter airway 1/2 Cookie Result: 1= does not enter airway Thin Liquid via single sip from straw Result: 3= enters airways/above vocal folds/not ejected Thin Liquid via single sip from straw Trial 2 Result: 3= enters airways/above vocal folds/not ejected Thin Liquid via single sip from straw Effortful swallow Result: 3= enters airways/above vocal folds/not ejected - SILENT POST PRANDIAL ASPIRATION OF THE PREVIOUS TRIAL prior to swallow onset of this trial Thin Liquid via single sip from straw Chin tuck with Cued Cough and re-swallow Result: 2= enter airway/above vocal folds/ejected - PAS score of 3 following chin tuck; however, cough and re-swallow ejected contrast from the laryngeal vestibule - Oral Phase Labial Seal: No Labial Escape Tongue Control During Bolus Hold: Posterior escape of less than half of bolus Bolus Preparation/Mastication: Timely and efficient chewing and mashing Bolus Transport/Lingual Motion: Delayed initiation of tongue motion Oral Residue: Trace residue lining oral structures - Pharyngeal Phase Initiation of Pharyngeal Swallow: Bolus head at posterior laryngeal surgace of epiglottis Soft Palate Elevation: Escape to nasopharynx Laryngeal Elevation: Partial superior movement thyroid cart/partial apprx aryt-epig petiole Anterior Hyoid Excursion: Partial anterior movement Epiglottic Movement: No inversion Laryngeal Vestibule Closure at Height of Swallow: Incomplete; narrow column of air/contrast in laryngeal vestibule Pharyngeal Stripping Wave: Present - diminished Pharyngoesophageal Segment Opening: Parital distension and partial duration; parital obstruction of flow Tongue Base Retraction: Narrow column of contrast between tongue base & post. pharyngeal wall Pharyngeal Residue: Collection of residue within or on pharyngeal structures - Treatment Strategies Effects of treatment strategies attemped:: Chin tuck = no impact observed Effortful swallow = little to no impact observed Cough and re-swallow = effective - Diagnosis/Impression Diagnosis: Mild-moderate oropharyngeal phase dysphagia (R13.12) Impression: The oral phase is primarily marked by... -Decreased bolus control with <1/2 of the bolus spilling posteriorly to the posterior surface of the epiglottis prior to swallow onset observed with thin liquids especially. -Mildly delayed tongue motion for A-P transport. -Trace oral residue after the swallow. -Timely, adequate mastication abilities. The pharyngeal phase is primarily marked by... -Decreased airway closure during the swallow due to decreased anterior hyoid excursion, no epiglottic inversion, and decreased laryngeal elevation. -Moderately-severely decreased tongue base retraction, severely decreased UES opening/duration, and no pharyngeal stripping wave with resulting moderate-severe pharyngeal residues after the swallow. -Aspiration of thin liquids by tsp with delayed weak cough reflex. SILENT post prandial aspiration of pharyngeal residue of thin liquids via straw. Consistent laryngeal penetration across thin and nectar thick liquid consistencies, which did not reliably eject from the laryngeal vestibule after the swallow. Use of cough and re-swallow was most effective in decreasing aspiration risk by effectively clearing residues remaining in the laryngeal vestibule. - Recommendations Diet: Regular Textures, Thin Liquids Compensatory Strategies: Small Bites, Small Sips - Cough and re-swallow each sip, Slow Rate, Alternate bites/solids and sips/liquids, Sitting upright, Remain sitting upright for 30 minutes after PO intake Recommend Repeat Modified Barium Swallow: Yes - Repeat MBSS in 6-12 months to monitor risk for worsening dysphagia/aspiration risk. Need for Skilled Speech Therapy Services: Yes Comment: Will recommend the patient for continued outpatient dysphagia therapy to address mild-moderate deficits in oropharyngeal swallow function. Will recommend the patient for oropharyngeal strengthening to improve bolus control, hyolaryngeal elevation/excursion, soft palate elevation, pharyngeal contraction, and duration of UES opening. The patient would benefit from continued education regarding diet recommendations and recommended compensatory strategies. Will discuss with radiation oncologist if the patient is appropriate for myofascial release in junction with oropharyngeal strengthening to promote improved mobility of soft tissue of the anterior neck and improved ROM of swallowing mechanism. Education Completed: 1. Described result of evaluation., 2. Pt understands evaluation & agrees with goals and treatment plan., 7. Pt requires further education on strategies & risks. - Status Active ST Patient: Active - Contact Information [facility] Speech Therapy:: Morena Rodriguez M.A. CCC-DESIGNER WRITER Speech-Language Pathologist [address] [address] [email or web address] [phone] 02/05/22 15:31 02/05/22 1648 <Electronically signed by Morena Rodriguez M.A., CCC-DESIGNER WRITER> Date/Time Morena Rodriguez M.A., CCC-DESIGNER WRITER Co-Signature Required for all Medicare patients Date/Time Co-Signature
--- NOTE | 2022-02-20 15:46 | HP.SP.REEV ---
History - History Date of Eval: 06/05/21 Medical Diagnosis (from RX): History of primary malignant neoplasm of base of tongue (Z85.810) Date of Onset of Diagnosis: 09/11/2017 Previous speech therapy: Yes Results: Pt trained in oropharyngeal strengthening and followed for ongoing assessment of diet tolerance and education re: impacts of radiation in 2018 when patient underwent concurrent chemoradiation therapy. The patient has participated in 4 MBSS (SEE chart for full details). He most recently participated in OP speech therapy for oropharyngeal strengthening in junction with myofascial release from 06/25/2021-07/06/2021 for 4 visits. He was has been completing home exercise program to maintain optimal swallow function. 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 Cervical fusion (2013). 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 Right Hearing Abillity: Use of Hearing Aid Left Hearing Abillity: Use of Hearing Aid Visual Assistive Devices: Glasses Patients Living Arrangements: , [place] Patient Allergies - Allergies Allergies amoxicillin [From Augmentin] Adverse Reaction (Intermediate, Verified 11/19/21 11:22) rash clavulanic acid [From Augmentin] Adverse Reaction (Intermediate, Verified 11/19/21 11:22) rash Previous/Current Goals - Goals 1-5 Previous Goal #1: The patient will consume least restrictive diet textures without overt s/s of aspiration with minimal verbal cues for use of compensatory strategies to decrease risk for aspiration. Goal 1 Status: PROGRESSING - Tolerating thin liquids / regular textures with use of strategies to decrease risk for aspiration. He admits to forgetting strategies at times and using quick rate of intake, but will self-correct if having increased s/s of aspiration. Previous Goal #2: The patient will participate in MBS study to objectively assess swallow function and provide recommendations for safest, least restrictive diet and compensatory strategies to reduce risk for aspiration. Goal 2 Status: Most recent MBSS attached in note. Repeat MBS study in 6-12 months to monitor swallow function as the patient is at risk for worsening dysphagia and aspiration risk s/p chemoradiation treatment. Previous Goal #3: The patient will complete an oropharyngeal exercise program during and post radiation treatment independently to improve and maintain strength, ROM, and coordination of swallowing mechanism (X10 repetitions, 3-5X daily). Goal 3 Status: PROGRESS - He is completing home exercise program at times consistently X15 repetitions, 3-5X daily; however, he forgetting to do exercises at times, especially when he is busy with work. Modified Barium Results Hx MBS Report Entered: Yes MBS Results (from prior exam): 02/20/22 10:31 Speech Therapy by Morena Rodriguez [facility] Speech Pathology [address] [place] [address] Modified Barium Swallow Study MR#: [id number] Acct: [id number] Name: JUAN BARRIOS Rep #: [id number] : 1945 76 From: Morena Rodriguez M.A., [facility]-INCOME TAX ANALYST Modified Barium Swallow - Patient Information Study Date: 02/05/22 Study Time: 13:00 Direct Billable Minutes: 113 Total Minutes procedure & reportin Diagnosis: Hx of primary malignant neoplasm of base of tongue (Z85.810) Referring Physician: Chace Polk Reason for Referral: Objectively assess swallow function, risk for aspiration, and determine recommendations for least restrictive diet textures and compensatory strategies to improve safety of swallow. 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 Cervical fusion (2013). History of oropharyngeal phase dysphagia s/p R submandibular gland excision and right selective neck dissection with concurrent chemoradiation. Most recent MBSS 06/18/2021 revealed mild oropharyngeal phase dysphagia and recommended Regular Textures - Easy to Chew textures (IDDSI Level 7), Thin Liquids; Compensatory Strategies: Small Bites, Small Sips - Consider use of effortful swallows. Cough and re-swallow if wet vocal quality with liquids., Slow Rate, Multiple Swallows, Sitting upright. He participated in oropharyngeal strengthening in junction with myofascial release following the study for 4 visits from 06/25/2021-07/06/2021. He has since been completing a home exercise program to maintain optimal swallow function. Repeat MBSS recommended by INCOME TAX ANALYST to monitor risk for worsening dysphagia. Current Diet Ordered: Regular textures / Thin liquids Dentition: WNL Mental Status: WNL Respiratory Status: Oxygenating on Room Air - Penetration-Aspiration Scale Penetration-Aspiration Scale: OBJECTIVE ASSESSMENT OF SWALLOW FUNCTION (QUANTITATIVE ? PER TRIAL): PENETRATION / ASPIRATION SCALE (DIAZ): 1 = does not enter airway 2 = enters airway/above vocal folds/ejected 3 = enters airway/above vocal folds/not ejected 4 = enters airway/contacts vocal folds/ejected 5 = enters airway/contacts vocal folds/not ejected 6 = enters airway/below vocal folds/ejected 7 = enters airway/below vocal folds/not ejected despite effort 8 = enters airway/below vocal folds/no effort VIDEOFLOROSCOPIC SCALE SCORE (DIAZ): Grade I = aspiration of material that has penetrated into the laryngeal vestibule, intact cough reflex Grade II = aspiration < 10 % of the bolus, intact cough reflex Grade III = aspiration of < 10 % of the bolus, reduced cough reflex or aspiration of > 10 % of the bolus, intact cough reflex Grade IV = aspiration of > 10 % of the bolus, reduced cough reflex - Penetration-Aspiration Scale Score Thin Liquid via teaspoon Result: 7= enters airways/below vocal folds/not ejected despite effort - delayed, weak cough response Thin Liquid via teaspoon Trial 2 Result: 3= enters airways/above vocal folds/not ejected Thin Liquid via small single sip from cup Result: 5= enters airways/contacts vocal folds/not ejected [place] Thick Liquid via small single sip from cup Result: 3= enters airways/above vocal folds/not ejected [place] Thick Liquid via small single sip from cup Result: 2= enter airway/above vocal folds/ejected Pudding via teaspoon Result: 1= does not enter airway 1/2 Cookie Result: 1= does not enter airway Thin Liquid via single sip from straw Result: 3= enters airways/above vocal folds/not ejected Thin Liquid via single sip from straw Trial 2 Result: 3= enters airways/above vocal folds/not ejected Thin Liquid via single sip from straw Effortful swallow Result: 3= enters airways/above vocal folds/not ejected - SILENT POST PRANDIAL ASPIRATION OF THE PREVIOUS TRIAL prior to swallow onset of this trial Thin Liquid via single sip from straw Chin tuck with Cued Cough and re-swallow Result: 2= enter airway/above vocal folds/ejected - PAS score of 3 following chin tuck; however, cough and re-swallow ejected contrast from the laryngeal vestibule - Oral Phase Labial Seal: No Labial Escape Tongue Control During Bolus Hold: Posterior escape of less than half of bolus Bolus Preparation/Mastication: Timely and efficient chewing and mashing Bolus Transport/Lingual Motion: Delayed initiation of tongue motion Oral Residue: Trace residue lining oral structures - Pharyngeal Phase Initiation of Pharyngeal Swallow: Bolus head at posterior laryngeal surgace of epiglottis Soft Palate Elevation: Escape to nasopharynx Laryngeal Elevation: Partial superior movement thyroid cart/partial apprx aryt-epig petiole Anterior Hyoid Excursion: Partial anterior movement Epiglottic Movement: No inversion Laryngeal Vestibule Closure at Height of Swallow: Incomplete; narrow column of air/contrast in laryngeal vestibule Pharyngeal Stripping Wave: Present - diminished Pharyngoesophageal Segment Opening: Parital distension and partial duration; parital obstruction of flow Tongue Base Retraction: Narrow column of contrast between tongue base & post. pharyngeal wall Pharyngeal Residue: Collection of residue within or on pharyngeal structures - Treatment Strategies Effects of treatment strategies attemped:: Chin tuck = no impact observed Effortful swallow = little to no impact observed Cough and re-swallow = effective - Diagnosis/Impression Diagnosis: Mild-moderate oropharyngeal phase dysphagia (R13.12) Impression: The oral phase is primarily marked by... -Decreased bolus control with <1/2 of the bolus spilling posteriorly to the posterior surface of the epiglottis prior to swallow onset observed with thin liquids especially. -Mildly delayed tongue motion for A-P transport. -Trace oral residue after the swallow. -Timely, adequate mastication abilities. The pharyngeal phase is primarily marked by... -Decreased airway closure during the swallow due to decreased anterior hyoid excursion, no epiglottic inversion, and decreased laryngeal elevation. -Moderately-severely decreased tongue base retraction, severely decreased UES opening/duration, and no pharyngeal stripping wave with resulting moderate-severe pharyngeal residues after the swallow. -Aspiration of thin liquids by tsp with delayed weak cough reflex. SILENT post prandial aspiration of pharyngeal residue of thin liquids via straw. Consistent laryngeal penetration across thin and nectar thick liquid consistencies, which did not reliably eject from the laryngeal vestibule after the swallow. Use of cough and re-swallow was most effective in decreasing aspiration risk by effectively clearing residues remaining in the laryngeal vestibule. - Recommendations Diet: Regular Textures, Thin Liquids Compensatory Strategies: Small Bites, Small Sips - Cough and re-swallow each sip, Slow Rate, Alternate bites/solids and sips/liquids, Sitting upright, Remain sitting upright for 30 minutes after PO intake Recommend Repeat Modified Barium Swallow: Yes - Repeat MBSS in 6-12 months to monitor risk for worsening dysphagia/aspiration risk. Need for Skilled Speech Therapy Services: Yes Comment: Will recommend the patient for continued outpatient dysphagia therapy to address mild-moderate deficits in oropharyngeal swallow function. Will recommend the patient for oropharyngeal strengthening to improve bolus control, hyolaryngeal elevation/excursion, soft palate elevation, pharyngeal contraction, and duration of UES opening. The patient would benefit from continued education regarding diet recommendations and recommended compensatory strategies. Will discuss with radiation oncologist if the patient is appropriate for myofascial release in junction with oropharyngeal strengthening to promote improved mobility of soft tissue of the anterior neck and improved ROM of swallowing mechanism. Education Completed: 1. Described result of evaluation., 2. Pt understands evaluation & agrees with goals and treatment plan., 7. Pt requires further education on strategies & risks. - Status Active ST Patient: Active - Contact Information [facility] Speech Therapy:: Morena Rodriguez M.A. CCC-INCOME TAX ANALYST Speech-Language Pathologist [facility] [address] [place] [address] [email or web address] [phone] 02/05/22 15:31 02/05/22 1648 <Electronically signed by Morena Rodriguez M.A., CCC-INCOME TAX ANALYST> Date/Time Morena Rodriguez M.A., CCC-INCOME TAX ANALYST Co-Signature Required for all Medicare patients Date/Time Co-Signature Electronically signed by Morena Rodriguez M.A., [facility]-INCOME TAX ANALYST on 02/20/22 10:31 Initialized on 02/20/22 10:31 - END OF NOTE Swallowing Performance Scale - Swallowing Performance Scale Swallowing Performance Scale Result: 5 Moderate FOIS - Functional Oral Intake Scale Total oral diet with multiple consistencies, but requiring special preparation or compensations: Level 5 SP Oncology PSS-HN - PSS-HN Test Normalcy of Diet: Full diet (liquid assist) Scale Result:: 90 Public Eating: No restrictions of place, food or companions-eats out any opportunity Public eating scale: 100 Understandability of Speech: Always understandable Understandability of Speech Scale: 100 Plan - Recommendations MBS: Yes Treatment Warranted: Yes - Progress Prognosis: Good - Frequency Frequency: Quarterly - Goals that are Established Determination:: Goals will be added/modified as deemed necessary and appropriate. Therapy will be discontinued when results of re-evaluation indicate therapy is no longer needed or lack of progress has been documented. - Goal #1-5 Goal #1: The patient will consume least restrictive diet textures without overt s/s of aspiration with minimal verbal cues for use of compensatory strategies to decrease risk for aspiration. Goal #2: The patient will complete an oropharyngeal exercise program post chemoradiation treatment independently to improve and maintain strength, ROM, and coordination of swallowing mechanism (X15-20 repetitions, 3-5X daily). April 2022 will re-implement myofascial release in junction with oropharyngeal strengthening. Goal #3: The patient will participate in ongoing education re: long-term effects of chemoradiation treatment on swallow function and management of symptoms that contribute to dysphagia. Education - Patient Instruction Patient Education: Diagnosis, Treatment Plan, Goals, Safety Precautions, Diet Level Other Education: INCOME TAX ANALYST educated pt in long-term effects of chemoradiation treatment on swallow function. Instructed in updated home oropharyngeal exercise program, including verbal and visual education for rationale for all exercises selected. Pt verbalized understanding and demonstrated all exercises. Person Taught: Patient Teaching Method: Discussion, Demonstration, Handout Response to teaching: Return demonstration, Verbalize understanding, Reinforcement needed
--- NOTE | 2023-01-20 10:43 | ST ---
[facility] Speech Pathology [address] [place] [address] Modified Barium Swallow Study MR#: [id number] Acct: [id number] Name: JUAN BARRIOS Rep #: [id number] : 1945 77 From: Shahida Romero M.A., [facility] Modified Barium Swallow Patient Information Study Date: 12/25/22 Study Time: 13:00 Direct Billable Minutes: 110 Total Minutes procedure & reportin Diagnosis: Hx of primary malignant neoplasm of base of tongue (Z85.810) Referring Physician: Chace Polk Reason for Referral: Objectively assess swallow function, risk for aspiration, and determine recommendations for least restrictive diet textures and compensatory strategies to improve safety of swallow - yearly follow up. 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 Cervical fusion (2013). History of oropharyngeal phase dysphagia s/p R submandibular gland excision and right selective neck dissection with concurrent chemoradiation. MBSS 06/18/2021 revealed mild oropharyngeal phase dysphagia and recommended Regular Textures - Easy to Chew textures, Thin Liquids; Compensatory Strategies: Small Bites, Small Sips - Consider use of effortful swallows. Cough and re-swallow if wet vocal quality with liquids., Slow Rate, Multiple Swallows, Sitting upright. He participated in oropharyngeal strengthening in junction with myofascial release following the study for 4 visits from 06/25/2021-07/06/2021. Most recent MBSS completed 02/05/22 which revealed mild-moderate oropharyngeal phase dysphagia and recommended Regular Textures, Thin Liquids; Compensatory Strategies:Small Bites, Small Sips - Cough and re-swallow each sip, Slow Rate, Alternate bites/solids and sips/liquids, Sitting upright, Remain sitting upright for 30 minutes after PO intake. Additional speech therapy was recommended following 02/05/22 MBSS d/t worsening swallow function ? the patient did attend one follow up ST session on 02/20/22, but did not return for additional treatment. The patient reports that he has been completing neck ROM exercises at home but admits that he has not been completing any swallowing exercises. The patient denies any instances of PNA since prior MBSS. Current Diet Ordered: Regular Textures/Thin Liquids Dentition: WNL Mental Status: WNL Respiratory Status: Oxygenating on Room Air Penetration-Aspiration Scale Penetration-Aspiration Scale: OBJECTIVE ASSESSMENT OF SWALLOW FUNCTION (QUANTITATIVE ? PER TRIAL): PENETRATION / ASPIRATION SCALE (DIAZ): 1 = does not enter airway 2 = enters airway/above vocal folds/ejected 3 = enters airway/above vocal folds/not ejected 4 = enters airway/contacts vocal folds/ejected 5 = enters airway/contacts vocal folds/not ejected 6 = enters airway/below vocal folds/ejected 7 = enters airway/below vocal folds/not ejected despite effort 8 = enters airway/below vocal folds/no effort VIDEOFLOROSCOPIC SCALE SCORE (DIAZ): Grade I = aspiration of material that has penetrated into the laryngeal vestibule, intact cough reflex Grade II = aspiration < 10 % of the bolus, intact cough reflex Grade III = aspiration of < 10 % of the bolus, reduced cough reflex or aspiration of > 10 % of the bolus, intact cough reflex Grade IV = aspiration of > 10 % of the bolus, reduced cough reflexPenetration-Aspiration Scale Score Thin Liquid via teaspoon: Result: 1= does not enter airway Thin Liquid via teaspoon Trial 2: Result: 3= enters airways/above vocal folds/not ejected Thin Liquid via cup: Result: 3= enters airways/above vocal folds/not ejected (during the swallow w/ eventual post-prandial progression to 5= enters airway/contacts vocal folds/not ejected) Thin liquid via sequential sips from cup: Result: 3= enters airways/above vocal folds/not ejected Thin liquid via straw: Result: 5= enters airways/contacts vocal folds/not ejected Pudding: Result: 1= does not enter airway Cookie: Result: 1= does not enter airway Thin Liquid via cup Trial 2: Result: 3= enters airways/above vocal folds/not ejected Oral Phase Labial Seal: No Labial Escape Tongue Control During Bolus Hold: Cohesive bolus between tongue to palatal seal Bolus Preparation/Mastication: Timely and efficient chewing and mashing Bolus Transport/Lingual Motion: Delayed initiation of tongue motion Oral Residue: Trace residue lining oral structures Pharyngeal Phase Initiation of Pharyngeal Swallow: Bolus head in valleculae Soft Palate Elevation: Trace column of contrast/air between soft palate and pharyngeal wall Laryngeal Elevation: Partial superior movement thyroid cart/partial apprx aryt-epig petiole Anterior Hyoid Excursion: Partial anterior movement Epiglottic Movement: No inversion Laryngeal Vestibule Closure at Height of Swallow: Incomplete; narrow column of air/contrast in laryngeal vestibule Pharyngeal Stripping Wave: Present - diminished Pharyngoesophageal Segment Opening: Parital distension and partial duration; parital obstruction of flow Tongue Base Retraction: Narrow column of contrast between tongue base & post. pharyngeal wall Pharyngeal Residue: Collection of residue within or on pharyngeal structures Treatment Strategies Effects of treatment strategies attemped:: -Cough and re-swallow: effective to clear contrast from the laryngeal vestibule -Multiple swallow: marginally effective to reduce pharyngeal residue -Liquid wash: effective to clear pharyngeal residue Diagnosis/Impression Diagnosis: mild-moderate oropharyngeal dysphagia (R13.12) Impression: The oral phase is characterized by: -adequate labial seal w/no anterior bolus loss -swallow onset was timely w/ thin liquid boluses intermittently reaching the valleculae prior to swallow onset -mild delay in lingual motion for AP bolus transportation -mastication grossly WNL The pharyngeal phase is characterized by: -incomplete hyolaryngeal excursion w/ no epiglottic inversion resulting in reduced airway protection during the swallow -reduced tongue base retraction and significantly diminished pharyngeal stripping wave, coupled w/ incomplete UES distention/duration, resulting in reduced pharyngeal clearance w/ moderate-severe post-prandial pharyngeal residue accumulation w/in the pyriforms/inferior pharyngeal wall -use of a liquid wash was effective to facilitate [id number] transit of post-prandial pharyngeal residue retention w/ cookie trial -thin liquids penetrated the laryngeal vestibule during the swallow d/t incomplete airway closure, contacting the vocal folds at times -the patient was sensate to vocal fold contact, with penetration spontaneously eliciting a throat clearing response from the patient -throat clear/cough and re-swallow were effective to expel contrast from the laryngeal vestibule Recommendations Diet: Regular Textures and Thin Liquids Compensatory Strategies: Small Bites, Small Sips (cough and re-swallow w/ sips), Alternate bites/solids and sips/liquids, Sitting upright and Remain sitting upright for 30 minutes after PO intake Recommend Repeat Modified Barium Swallow: Yes (Repeat MBSS in 6-12 months for ongoing assessment of swallow function d/t late effects of radiation ) Need for Skilled Speech Therapy Services: Yes Comment: Images were reviewed w/ the patient immediately following MBSS completion. Recommend f/u w/ ST for dysphagia therapy to address mild-moderate oropharyngeal dysphagia. Education was provided re: the impact of radiation tx on swallow function over time, the role of outpatient speech therapy for dysphagia management and the necessity of home exercise program implementation to improve swallow function, prevent further decline, and avoid associated risks (worsening dysphagia, aspiration, pneumonia, inability to maintain sufficient oral nutrition/hydration, etc). Education Completed: 1. Described result of evaluation., 2. Pt understands evaluation & agrees with goals and treatment plan. and 7. Pt requires further education on strategies & risks. Status Active ST Patient: Active Contact Information [facility] Speech Therapy:: Shahida Romero M.A. [facility] Speech-Language Pathologist [place] [address] [place] [address] [email or web address] [phone] 12/25/22 [id number] <Electronically signed by Shahida Romero M.A. [facility]> Date/Time Shahida Romero M.A. [employer]
--- NOTE | 2023-01-20 10:50 | HP.SP.REEV ---
History History Date of Eval: 06/05/21 Attending Doctor: Referring Doctor: Reason for Referral: HISTORY OF MALIGNANT NEOPLASM OF TONGUE/RX HERE Medical Diagnosis (from RX): History of primary malignant neoplasm of base of tongue (Z85.810) Date of Onset of Diagnosis: 09/11/2017 Previous speech therapy: Yes Results: Pt trained in oropharyngeal strengthening and followed for ongoing assessment of diet tolerance and education re: impacts of radiation in 2018 when patient underwent concurrent chemoradiation therapy. The patient has participated in 5 MBSS (SEE chart for full details). He most recently participated in OP speech therapy for oropharyngeal strengthening in junction with myofascial release from 06/25/2021-07/06/2021 for 4 visits. He had one follow-up visit last year to re-learn exercises. 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 Cervical fusion (2013). 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 Right Hearing Abillity: Use of Hearing Aid Left Hearing Abillity: Use of Hearing Aid Visual Assistive Devices: Glasses Patients Living Arrangements: , [place] Patient Allergies Allergies Allergies: Allergies amoxicillin [From Augmentin] Adverse Reaction (Intermediate, Verified 11/18/22 13:09) rash clavulanic acid [From Augmentin] Adverse Reaction (Intermediate, Verified 11/18/22 13:09) rash Previous/Current Goals Goals 1-5 Previous Goal #1: The patient will consume least restrictive diet textures without overt s/s of aspiration with minimal verbal cues for use of compensatory strategies to decrease risk for aspiration. Goal 1 Status: PROGRESSING - Tolerating thin liquids / regular textures with use of strategies to decrease risk for aspiration. He demonstrated use of strategies provided initial review at the start of the session. He feels his soft palate function has declined, he feels liquids go up his nose at least 1X/week. At times, he will even have drinks drip from his nose. He reports that he has increased saliva. Dysguesia persists since chemoradiation. Previous Goal #2: The patient will complete an oropharyngeal exercise program post chemoradiation treatment independently to improve and maintain strength, ROM, and coordination of swallowing mechanism (X15-20 repetitions, 3-5X daily). April 2022 will re-implement myofascial release in junction with oropharyngeal strengthening. Goal 2 Status: LIMITED PROGRESS - Pt admits to poor adherence to home exercise program after ~1 month since last visit. He does complete certain exercises intermittently. Previous Goal #3: The patient will participate in ongoing education re: long-term effects of chemoradiation treatment on swallow function and management of symptoms that contribute to dysphagia. Goal 3 Status: GOAL MET - Patient verbalized understanding of risk for worsening swallow function s/p chemoradiation due to puttier effects. Previous Goal #4: The patient will participate in MBSS to objectively assess swallow function and provide recommendations for safest, least restrictive diet and compensatory strategies to reduce risk for aspiration. Goal 4 Status: Most recent MBSS attached in note. Repeat MBS study in 6-12 months to monitor swallow function as the patient is at risk for worsening dysphagia and aspiration risk s/p chemoradiation treatment. Previous Goal #5: Patient feels he is intermittently slurring his words - patient had Brain MRI last week for Alzheimer's study. He has brain MRI in his pocket. EMBEDDED CASE MANAGER recommended calling his PCP to make an appointment or if returning slurred speech to go to the ER. Objective Oral Motor Jaw Opening: WNL Opening Measurement: 39mm Modified Barium Results Hx If Applicable Enter into a NOTE MBS Report Entered: Yes MBS Results (from prior exam): 01/20/23 10:43 Speech Therapy by Morena Rodriguez [facility] Speech Pathology [address] [place] [address] Modified Barium Swallow Study MR#: [id number] Acct: [id number] Name: JUAN BARRIOS Rep #: [id number] : 1945 77 From: Shahida Romero M.A. [facility]-EMBEDDED CASE MANAGER Modified Barium Swallow Patient Information Study Date: 12/25/22 Study Time: 13:00 Direct Billable Minutes: 110 Total Minutes procedure & reportin Diagnosis: Hx of primary malignant neoplasm of base of tongue (Z85.810) Referring Physician: Chace Polk Reason for Referral: Objectively assess swallow function, risk for aspiration, and determine recommendations for least restrictive diet textures and compensatory strategies to improve safety of swallow - yearly follow up. 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 Cervical fusion (2013). History of oropharyngeal phase dysphagia s/p R submandibular gland excision and right selective neck dissection with concurrent chemoradiation. MBSS 06/18/2021 revealed mild oropharyngeal phase dysphagia and recommended Regular Textures - Easy to Chew textures, Thin Liquids; Compensatory Strategies: Small Bites, Small Sips - Consider use of effortful swallows. Cough and re-swallow if wet vocal quality with liquids., Slow Rate, Multiple Swallows, Sitting upright. He participated in oropharyngeal strengthening in junction with myofascial release following the study for 4 visits from 06/25/2021-07/06/2021. Most recent MBSS completed 02/05/22 which revealed mild-moderate oropharyngeal phase dysphagia and recommended Regular Textures, Thin Liquids; Compensatory Strategies:Small Bites, Small Sips - Cough and re-swallow each sip, Slow Rate, Alternate bites/solids and sips/liquids, Sitting upright, Remain sitting upright for 30 minutes after PO intake. Additional speech therapy was recommended following 02/05/22 MBSS d/t worsening swallow function ? the patient did attend one follow up ST session on 02/20/22, but did not return for additional treatment. The patient reports that he has been completing neck ROM exercises at home but admits that he has not been completing any swallowing exercises. The patient denies any instances of PNA since prior MBSS. Current Diet Ordered: Regular Textures/Thin Liquids Dentition: WNL Mental Status: WNL Respiratory Status: Oxygenating on Room Air Penetration-Aspiration Scale Penetration-Aspiration Scale: OBJECTIVE ASSESSMENT OF SWALLOW FUNCTION (QUANTITATIVE ? PER TRIAL): PENETRATION / ASPIRATION SCALE (DIAZ): 1 = does not enter airway 2 = enters airway/above vocal folds/ejected 3 = enters airway/above vocal folds/not ejected 4 = enters airway/contacts vocal folds/ejected 5 = enters airway/contacts vocal folds/not ejected 6 = enters airway/below vocal folds/ejected 7 = enters airway/below vocal folds/not ejected despite effort 8 = enters airway/below vocal folds/no effort VIDEOFLOROSCOPIC SCALE SCORE (DIAZ): Grade I = aspiration of material that has penetrated into the laryngeal vestibule, intact cough reflex Grade II = aspiration < 10 % of the bolus, intact cough reflex Grade III = aspiration of < 10 % of the bolus, reduced cough reflex or aspiration of > 10 % of the bolus, intact cough reflex Grade IV = aspiration of > 10 % of the bolus, reduced cough reflexPenetration-Aspiration Scale Score Thin Liquid via teaspoon: Result: 1= does not enter airway Thin Liquid via teaspoon Trial 2: Result: 3= enters airways/above vocal folds/not ejected Thin Liquid via cup: Result: 3= enters airways/above vocal folds/not ejected (during the swallow w/ eventual post-prandial progression to 5= enters airway/contacts vocal folds/not ejected) Thin liquid via sequential sips from cup: Result: 3= enters airways/above vocal folds/not ejected Thin liquid via straw: Result: 5= enters airways/contacts vocal folds/not ejected Pudding: Result: 1= does not enter airway Cookie: Result: 1= does not enter airway Thin Liquid via cup Trial 2: Result: 3= enters airways/above vocal folds/not ejected Oral Phase Labial Seal: No Labial Escape Tongue Control During Bolus Hold: Cohesive bolus between tongue to palatal seal Bolus Preparation/Mastication: Timely and efficient chewing and mashing Bolus Transport/Lingual Motion: Delayed initiation of tongue motion Oral Residue: Trace residue lining oral structures Pharyngeal Phase Initiation of Pharyngeal Swallow: Bolus head in valleculae Soft Palate Elevation: Trace column of contrast/air between soft palate and pharyngeal wall Laryngeal Elevation: Partial superior movement thyroid cart/partial apprx aryt-epig petiole Anterior Hyoid Excursion: Partial anterior movement Epiglottic Movement: No inversion Laryngeal Vestibule Closure at Height of Swallow: Incomplete; narrow column of air/contrast in laryngeal vestibule Pharyngeal Stripping Wave: Present - diminished Pharyngoesophageal Segment Opening: Parital distension and partial duration; parital obstruction of flow Tongue Base Retraction: Narrow column of contrast between tongue base & post. pharyngeal wall Pharyngeal Residue: Collection of residue within or on pharyngeal structures Treatment Strategies Effects of treatment strategies attemped:: -Cough and re-swallow: effective to clear contrast from the laryngeal vestibule -Multiple swallow: marginally effective to reduce pharyngeal residue -Liquid wash: effective to clear pharyngeal residue Diagnosis/Impression Diagnosis: mild-moderate oropharyngeal dysphagia (R13.12) Impression: The oral phase is characterized by: -adequate labial seal w/no anterior bolus loss -swallow onset was timely w/ thin liquid boluses intermittently reaching the valleculae prior to swallow onset -mild delay in lingual motion for AP bolus transportation -mastication grossly WNL The pharyngeal phase is characterized by: -incomplete hyolaryngeal excursion w/ no epiglottic inversion resulting in reduced airway protection during the swallow -reduced tongue base retraction and significantly diminished pharyngeal stripping wave, coupled w/ incomplete UES distention/duration, resulting in reduced pharyngeal clearance w/ moderate-severe post-prandial pharyngeal residue accumulation w/in the pyriforms/inferior pharyngeal wall -use of a liquid wash was effective to facilitate [id number] transit of post-prandial pharyngeal residue retention w/ cookie trial -thin liquids penetrated the laryngeal vestibule during the swallow d/t incomplete airway closure, contacting the vocal folds at times -the patient was sensate to vocal fold contact, with penetration spontaneously eliciting a throat clearing response from the patient -throat clear/cough and re-swallow were effective to expel contrast from the laryngeal vestibule Recommendations Diet: Regular Textures and Thin Liquids Compensatory Strategies: Small Bites, Small Sips (cough and re-swallow w/ sips), Alternate bites/solids and sips/liquids, Sitting upright and Remain sitting upright for 30 minutes after PO intake Recommend Repeat Modified Barium Swallow: Yes (Repeat MBSS in 6-12 months for ongoing assessment of swallow function d/t late effects of radiation ) Need for Skilled Speech Therapy Services: Yes Comment: Images were reviewed w/ the patient immediately following MBSS completion. Recommend f/u w/ ST for dysphagia therapy to address mild-moderate oropharyngeal dysphagia. Education was provided re: the impact of radiation tx on swallow function over time, the role of outpatient speech therapy for dysphagia management and the necessity of home exercise program implementation to improve swallow function, prevent further decline, and avoid associated risks (worsening dysphagia, aspiration, pneumonia, inability to maintain sufficient oral nutrition/hydration, etc). Education Completed: 1. Described result of evaluation., 2. Pt understands evaluation & agrees with goals and treatment plan. and 7. Pt requires further education on strategies & risks. Status Active ST Patient: Active Contact Information [facility] Speech Therapy:: Shahida Romero M.A. CCC-EMBEDDED CASE MANAGER Speech-Language Pathologist [facility] [address] [place] [address] [email or web address] [phone] 12/25/22 1451 <Electronically signed by Shahida Romero M.A. CCC-EMBEDDED CASE MANAGER> Date/Time Shahida Romero M.A. CCC-EMBEDDED CASE MANAGER Initialized on 01/20/23 10:43 - END OF NOTE Swallowing Performance Scale Swallowing Performance Scale Swallowing Performance Scale Result: 3 Mild Reference: Neuro-QoL instrument Radiation Oncology Patient FOIS Functional Oral Intake Scale Total oral diet with multiple consistencies, but requiring special preparation or compensations: Level 5 SP Oncology PSS-HN PSS-HN Test Normalcy of Diet: Full diet (liquid assist) Scale Result:: 90 Public Eating: No restrictions of place, food or companions-eats out any opportunity Public eating scale: 100 Understandability of Speech: Always understandable Understandability of Speech Scale: 100 Plan Plan Plan: Will recommend the patient for continued dysphagia therapy to implement oropharyngeal exercise program and educate in recommended aspiration precautions to promote improved swallow function s/p chemoradiation treatment for malignant neoplasm of base of tongue. Recommendations MBS: Yes Treatment Warranted: Yes Progress Prognosis: Good Frequency Frequency: Quarterly Goals that are Established Determination:: Goals will be added/modified as deemed necessary and appropriate. Therapy will be discontinued when results of re-evaluation indicate therapy is no longer needed or lack of progress has been documented. Goal #1-5 Goal #1: The patient will consume least restrictive diet textures without overt s/s of aspiration with minimal verbal cues for use of compensatory strategies to decrease risk for aspiration. Goal #2: The patient will complete an oropharyngeal exercise program post chemoradiation treatment independently to improve and maintain strength, ROM, and coordination of swallowing mechanism (X10-15 repetitions, 3-5X daily) (Janay, Effortful breath hold and swallow, Tano, Yawn/cheek puff [soft palate], Tongue raise and retraction w/ suction [soft palate]. Goal #3: The patient will participate in annual MBS study to objectively assess swallow function and provide recommendations for safest, least restrictive diet and compensatory strategies to reduce risk for aspiration. Goal #4: The patient will participate in MBS study to objectively assess swallow function and provide recommendations for safest, least restrictive diet and compensatory strategies to reduce risk for aspiration. Education Patient has Indicated that the Following The Patient has indicated that they have no educational or learning abilities that may effect their care.: Yes Patient Instruction Patient Education: Diagnosis, Treatment Plan, Goals and Safety Precautions Other Education: Instructed in updated home oropharyngeal exercise program, including verbal and visual education for rationale for all exercises selected. Pt verbalized understanding and demonstrated all exercises. Person Taught: Patient Teaching Method: Discussion, Demonstration and Handout Response to teaching: Return demonstration, Verbalize understanding and Reinforcement needed
--- NOTE | 2023-07-01 08:58 | HP.SPREEV_ITS ---
Patient Allergies Allergies Allergies: Allergies amoxicillin [From Augmentin] Adverse Reaction (Intermediate, Verified 04/16/23 13:28) rash clavulanic acid [From Augmentin] Adverse Reaction (Intermediate, Verified 04/16/23 13:28) rash Previous/Current Goals Goals 1-5 Previous Goal #1: The patient will consume least restrictive diet textures without overt s/s of aspiration with minimal verbal cues for use of compensatory strategies to decrease risk for aspiration. Goal 1 Status: PROGRESSING - Tolerating thin liquids / regular textures with use of strategies to decrease risk for aspiration. He demonstrated use of strategies with exception of recommended cough and re-swallow. Pt requires re-enforcement for use of strategy. Previous Goal #2: The patient will complete an oropharyngeal exercise program post chemoradiation treatment independently to improve and maintain strength, ROM, and coordination of swallowing mechanism (X15-20 repetitions, 3-5X daily). Goal 2 Status: LIMITED PROGRESS - Pt admits to poor adherence to home exercise program; however, he would like to return to 3X/week for oropharyngeal strengthening in junction with MFR. Previous Goal #3: The patient will participate in MBSS to objectively assess swallow function and provide recommendations for safest, least restrictive diet and compensatory strategies to reduce risk for aspiration. Goal 3 Status: Most recent MBSS attached in note. Repeat MBS study in 6-12 months to monitor swallow function as the patient is at risk for worsening dysphagia and aspiration risk s/p chemoradiation treatment. Subjective Dysphagia Symptoms Reported Symptoms/Problems with: Difficulty Swallowing Solids, Food gets stuck and Hx of Aspiration Current Diet Solids Current Diet: Regular Other: He requires thorough chewing and slow rate with liquid washes frequently. Current Diet Liquids Current Liquids: Thin Comments Difficult foods: -: Bread, meat, fibrous veggies. Objective Dysphagia Administered by Administered by: Self Thin Liquids Administred via: Straw (And bottle) Oral Preparation: WNL Oral Transit: WNL Bolus clearance: fully cleared Cough: none observed/unable to assess Comments: The patient consumed single and sequential sips with timely swallow, no overt s/s of aspiration. Pureed Administered via: Spoon Oral Preparation: WNL Oral Transit: WNL Bolus clearance: fully cleared Gagging: No Cough: none observed/unable to assess Comments: He consumed bites with timely swallow, no overt s/s of aspiration, good oral clearance. Regular Oral Preparation: WNL Oral Transit: WNL Bolus clearance: significant clearance/minimal residue Cough: none observed/unable to assess Patient Report: Sensation of pharyngeal retention, which cleared with liquid wash. Comments: He consumed bites of regular textured cookies with prolonged but complete mastication, no overt s/s of aspiration, trace oral residue. Swallowing Impairment Other: Known pharyngeal weakness & retention, decreased airway closure from MBSS. Impact Impact on Safety & Functioning: Risk for Aspiration Recommendations Modified Barium Swallow/Cookie Swallow Recommended: Yes Swallowing Treatment: Yes Diet Texture Recommendations Solids: Regular (Level 7) Liquids: Thin (Level 0) Safety Saftey Precautions/Swallowing Recommendations (Check all that Apply): Small Sips & Bites when Eating and Alternate Liquids & Solids Other: Upright for po intake, slow rate Compensatory Strategies Compensatory Strategies: Double Swallow Results Swallowing Within Normal Limits: No Swallowing Diagnosis: Oropharyngeal Phase Dysphagia (R13.12) Severity: Mild Subjective Oral Motor Comments Comments: Tightness in neck Objective Oral Motor Oral Status Dentition: WNL Additional: Caps on molars Labial Impairment: WNL Closure: WNL Pucker: WNL Retraction: WNL Alternating Pucker/Retraction: WNL Lingual Impairment: WNL Protrusion: WNL Lateralization: WNL Jaw Impairment: WNL Opening: WNL Opening Measurement: 39mm Oral Motor Comments Comments: Manually assessed anterior neck for fascial restrictions. The patient demonstrated fascial restrictions in R anterior neck and in the region of the suprahyoids. WINDING INSPECTOR AND TESTER measured head rotation - R neck rotation 48mm and L neck rotation 47mm. Respiratory Status Respiratory Status: Room Air Modified Barium Results Hx If Applicable Enter into a NOTE MBS Report Entered: Yes MBS Results (from prior exam): 01/20/23 10:43 Speech Therapy by Morena Rodriguez [facility] Speech Pathology [address] [place] [address] Modified Barium Swallow Study MR#: [id number] Acct: [id number] Name: JUAN BARRIOS Rep #: [id number] : 1945 77 From: Shahida Roemro M.A. [facility]WIND[employer] INSPECT[employer] TESTER Modified Barium Swallow Patient Information Study Date: 12/25/22 Study Time: 13:00 Direct Billable Minutes: 110 Total Minutes procedure & reportin Diagnosis: Hx of primary malignant neoplasm of base of tongue (Z85.810) Referring Physician: Chace Polk Reason for Referral: Objectively assess swallow function, risk for aspiration, and determine recommendations for least restrictive diet textures and compensatory strategies to improve safety of swallow - yearly follow up. 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 Cervical fusion (2013). History of oropharyngeal phase dysphagia s/p R submandibular gland excision and right selective neck dissection with concurrent chemoradiation. MBSS 06/18/2021 revealed mild oropharyngeal phase dysphagia and recommended Regular Textures - Easy to Chew textures, Thin Liquids; Compensatory Strategies: Small Bites, Small Sips - Consider use of effortful swallows. Cough and re-swallow if wet vocal quality with liquids., Slow Rate, Multiple Swallows, Sitting upright. He participated in oropharyngeal strengthening in junction with myofascial release following the study for 4 visits from 06/25/2021-07/06/2021. Most recent MBSS completed 02/05/22 which revealed mild-moderate oropharyngeal phase dysphagia and recommended Regular Textures, Thin Liquids; Compensatory Strategies:Small Bites, Small Sips - Cough and re-swallow each sip, Slow Rate, Alternate bites/solids and sips/liquids, Sitting upright, Remain sitting upright for 30 minutes after PO intake. Additional speech therapy was recommended following 02/05/22 MBSS d/t worsening swallow function ? the patient did attend one follow up ST session on 02/20/22, but did not return for additional treatment. The patient reports that he has been completing neck ROM exercises at home but admits that he has not been completing any swallowing exercises. The patient denies any instances of PNA since prior MBSS. Current Diet Ordered: Regular Textures/Thin Liquids Dentition: WNL Mental Status: WNL Respiratory Status: Oxygenating on Room Air Penetration-Aspiration Scale Penetration-Aspiration Scale: OBJECTIVE ASSESSMENT OF SWALLOW FUNCTION (QUANTITATIVE ? PER TRIAL): PENETRATION / ASPIRATION SCALE (DIAZ): 1 = does not enter airway 2 = enters airway/above vocal folds/ejected 3 = enters airway/above vocal folds/not ejected 4 = enters airway/contacts vocal folds/ejected 5 = enters airway/contacts vocal folds/not ejected 6 = enters airway/below vocal folds/ejected 7 = enters airway/below vocal folds/not ejected despite effort 8 = enters airway/below vocal folds/no effort VIDEOFLOROSCOPIC SCALE SCORE (DIAZ): Grade I = aspiration of material that has penetrated into the laryngeal vestibule, intact cough reflex Grade II = aspiration < 10 % of the bolus, intact cough reflex Grade III = aspiration of < 10 % of the bolus, reduced cough reflex or aspiration of > 10 % of the bolus, intact cough reflex Grade IV = aspiration of > 10 % of the bolus, reduced cough reflexPenetration- Aspiration Scale Score Thin Liquid via teaspoon: Result: 1= does not enter airway Thin Liquid via teaspoon Trial 2: Result: 3= enters airways/above vocal folds/not ejected Thin Liquid via cup: Result: 3= enters airways/above vocal folds/not ejected (during the swallow w/ eventual post-prandial progression to 5= enters airway/contacts vocal folds/not ejected) Thin liquid via sequential sips from cup: Result: 3= enters airways/above vocal folds/not ejected Thin liquid via straw: Result: 5= enters airways/contacts vocal folds/not ejected Pudding: Result: 1= does not enter airway Cookie: Result: 1= does not enter airway Thin Liquid via cup Trial 2: Result: 3= enters airways/above vocal folds/not ejected Oral Phase Labial Seal: No Labial Escape Tongue Control During Bolus Hold: Cohesive bolus between tongue to palatal seal Bolus Preparation/Mastication: Timely and efficient chewing and mashing Bolus Transport/Lingual Motion: Delayed initiation of tongue motion Oral Residue: Trace residue lining oral structures Pharyngeal Phase Initiation of Pharyngeal Swallow: Bolus head in valleculae Soft Palate Elevation: Trace column of contrast/air between soft palate and pharyngeal wall Laryngeal Elevation: Partial superior movement thyroid cart/partial apprx aryt- epig petiole Anterior Hyoid Excursion: Partial anterior movement Epiglottic Movement: No inversion Laryngeal Vestibule Closure at Height of Swallow: Incomplete; narrow column of air/contrast in laryngeal vestibule Pharyngeal Stripping Wave: Present - diminished Pharyngoesophageal Segment Opening: Parital distension and partial duration; parital obstruction of flow Tongue Base Retraction: Narrow column of contrast between tongue base & post. pharyngeal wall Pharyngeal Residue: Collection of residue within or on pharyngeal structures Treatment Strategies Effects of treatment strategies attemped:: -Cough and re-swallow: effective to clear contrast from the laryngeal vestibule -Multiple swallow: marginally effective to reduce pharyngeal residue -Liquid wash: effective to clear pharyngeal residue Diagnosis/Impression Diagnosis: mild-moderate oropharyngeal dysphagia (R13.12) Impression: The oral phase is characterized by: -adequate labial seal w/no anterior bolus loss -swallow onset was timely w/ thin liquid boluses intermittently reaching the valleculae prior to swallow onset -mild delay in lingual motion for AP bolus transportation -mastication grossly WNL The pharyngeal phase is characterized by: -incomplete hyolaryngeal excursion w/ no epiglottic inversion resulting in reduced airway protection during the swallow -reduced tongue base retraction and significantly diminished pharyngeal stripping wave, coupled w/ incomplete UES distention/duration, resulting in reduced pharyngeal clearance w/ moderate-severe post-prandial pharyngeal residue accumulation w/in the pyriforms/inferior pharyngeal wall -use of a liquid wash was effective to facilitate [id number] transit of post-prandial pharyngeal residue retention w/ cookie trial -thin liquids penetrated the laryngeal vestibule during the swallow d/t incomplete airway closure, contacting the vocal folds at times -the patient was sensate to vocal fold contact, with penetration spontaneously eliciting a throat clearing response from the patient -throat clear/cough and re-swallow were effective to expel contrast from the laryngeal vestibule Recommendations Diet: Regular Textures and Thin Liquids Compensatory Strategies: Small Bites, Small Sips (cough and re-swallow w/ sips), Alternate bites/solids and sips/liquids, Sitting upright and Remain sitting upright for 30 minutes after PO intake Recommend Repeat Modified Barium Swallow: Yes (Repeat MBSS in 6-12 months for ongoing assessment of swallow function d/t late effects of radiation ) Need for Skilled Speech Therapy Services: Yes Comment: Images were reviewed w/ the patient immediately following MBSS completion. Recommend f/u w/ ST for dysphagia therapy to address mild-moderate oropharyngeal dysphagia. Education was provided re: the impact of radiation tx on swallow function over time, the role of outpatient speech therapy for dysphagia management and the necessity of home exercise program implementation to improve swallow function, prevent further decline, and avoid associated risks (worsening dysphagia, aspiration, pneumonia, inability to maintain sufficient oral nutrition/hydration, etc). Education Completed: 1. Described result of evaluation., 2. Pt understands evaluation & agrees with goals and treatment plan. and 7. Pt requires further education on strategies & risks. Status Active ST Patient: Active Contact Information [facility] Speech Therapy:: Shahida Romero M.A. CCC-WINDING INSPECTOR AND TESTER Speech-Language Pathologist [place] [place] [address] [email or web address] [phone] 12/25/22 1451 <Electronically signed by Shahida Romero M.A. CCC-WINDING INSPECTOR AND TESTER> Date/Time Shahida Romero M.A. CCC-WINDING INSPECTOR AND TESTER Initialized on 01/20/23 10:43 - END OF NOTE Swallowing Performance Scale Swallowing Performance Scale Swallowing Performance Scale Result: 3 Mild Reference: Neuro-QoL instrument Radiation Oncology Patient FOIS Functional Oral Intake Scale Total oral diet with multiple consistencies, but requiring special preparation or compensations: Level 5 Plan Plan Plan: Will recommend the patient for continued dysphagia therapy to implement oropharyngeal exercise program and educate in recommended aspiration precautions to promote improved swallow function s/p chemoradiation treatment for malignant neoplasm of base of tongue. Recommendations MBS: Yes Treatment Warranted: Yes Progress Prognosis: Good Frequency Frequency: 2-3x /Week Additional (Frequency): Frequency may change during POC pending patient's response to myofascial release. Will re-assess appropriateness for participation in myofascial release after 2 weeks. Duration: 12 Months Goals that are Established Determination:: Goals will be added/modified as deemed necessary and appropriate. Therapy will be discontinued when results of re-evaluation indicate therapy is no longer needed or lack of progress has been documented. Goal #1-5 Goal #1: (LTG) The patient will consume least restrictive diet textures without overt s/s of aspiration with minimal verbal cues for use of compensatory strategies to decrease risk for aspiration. Goal #2: (STG) The patient will complete an oropharyngeal exercise program in junction with myofascial release to improve and maintain strength, ROM, and coordination of swallowing mechanism (X10-15 repetitions, 3-5X daily) (Janay, Effortful breath hold and swallow, T[place], Tongue raise and retraction w/ suction [soft palate]). Goal #3: (LTG) The patient will participate in annual MBS study to objectively assess swallow function and provide recommendations for safest, least restrictive diet and compensatory strategies to reduce risk for aspiration (12/2023). Goal #4: . Education Patient has Indicated that the Following The Patient has indicated that they have no educational or learning abilities that may effect their care.: Yes Patient Instruction Patient Education: Diagnosis, Treatment Plan, Goals and Safety Precautions Other Education: Instructed in updated home oropharyngeal exercise program, including education for rationale for all exercises selected. Pt verbalized understanding and demonstrated all exercises. Person Taught: Patient Teaching Method: Discussion, Demonstration and Handout Response to teaching: Return demonstration, Verbalize understanding and Reinforcement needed
--- NOTE | 2023-07-01 16:19 | HP.SPREEV_ITS ---
Patient Allergies Allergies Allergies: Allergies amoxicillin [From Augmentin] Adverse Reaction (Intermediate, Verified 04/16/23 13:28) rash clavulanic acid [From Augmentin] Adverse Reaction (Intermediate, Verified 04/16/23 13:28) rash Previous/Current Goals Goals 1-5 Previous Goal #1: The patient will consume least restrictive diet textures without overt s/s of aspiration with minimal verbal cues for use of compensatory strategies to decrease risk for aspiration. Goal 1 Status: PROGRESSING - Tolerating thin liquids / regular textures with use of strategies to decrease risk for aspiration. He demonstrated use of strategies with exception of recommended cough and re-swallow. Pt requires re-enforcement for use of strategy. Previous Goal #2: The patient will complete an oropharyngeal exercise program post chemoradiation treatment independently to improve and maintain strength, ROM, and coordination of swallowing mechanism (X15-20 repetitions, 3-5X daily). Goal 2 Status: LIMITED PROGRESS - Pt admits to poor adherence to home exercise program; however, he would like to return to 3X/week for oropharyngeal strengthening in junction with MFR. Previous Goal #3: The patient will participate in MBSS to objectively assess swallow function and provide recommendations for safest, least restrictive diet and compensatory strategies to reduce risk for aspiration. Goal 3 Status: Most recent MBSS attached in note. Repeat MBS study in 6-12 months to monitor swallow function as the patient is at risk for worsening dysphagia and aspiration risk s/p chemoradiation treatment. Subjective Dysphagia Symptoms Reported Symptoms/Problems with: Difficulty Swallowing Solids, Food gets stuck and Hx of Aspiration Current Diet Solids Current Diet: Regular Other: He requires thorough chewing and slow rate with liquid washes frequently. Current Diet Liquids Current Liquids: Thin Comments Difficult foods: -: Bread, meat, fibrous veggies. Objective Dysphagia Administered by Administered by: Self Thin Liquids Administred via: Straw (And bottle) Oral Transit: WNL Bolus clearance: fully cleared Cough: none observed/unable to assess Comments: The patient consumed single and sequential sips with timely swallow, no overt s/s of aspiration. Pureed Administered via: Spoon Oral Preparation: WNL Oral Transit: WNL Bolus clearance: fully cleared Gagging: No Cough: none observed/unable to assess Patient Report: Pt reported pharyngeal stasis, cleared with multiple swallows. Comments: He consumed bites with timely swallow, no overt s/s of aspiration, good oral clearance. Regular Oral Preparation: WNL Oral Transit: WNL Bolus clearance: significant clearance/minimal residue Cough: none observed/unable to assess Patient Report: Sensation of pharyngeal retention, which cleared with liquid wash. Comments: He consumed bites of regular textured cookies with prolonged but complete mastication, no overt s/s of aspiration, trace oral residue. Swallowing Impairment Contributing Factors to Swallowing Impairment: Delayed Swallow Initiation Other: Known pharyngeal weakness & retention, decreased airway closure from MBSS. Impact Impact on Safety & Functioning: Risk for Aspiration Recommendations Modified Barium Swallow/Cookie Swallow Recommended: Yes Swallowing Treatment: Yes Diet Texture Recommendations Solids: Regular (Level 7) Liquids: Thin (Level 0) Other liquids: Thin Safety Saftey Precautions/Swallowing Recommendations (Check all that Apply): Small Sips & Bites when Eating and Alternate Liquids & Solids Other: Upright for po intake, slow rate Compensatory Strategies Compensatory Strategies: Double Swallow Results Swallowing Within Normal Limits: No Swallowing Diagnosis: Oropharyngeal Phase Dysphagia (R13.12) Severity: Mild Subjective Oral Motor Comments Comments: Tightness in neck Objective Oral Motor Oral Status Dentition: WNL Additional: Caps on molars Labial Impairment: WNL Closure: WNL Pucker: WNL Retraction: WNL Alternating Pucker/Retraction: WNL Lingual Impairment: WNL Protrusion: WNL Lateralization: WNL Jaw Impairment: WNL Opening: WNL Opening Measurement: 39mm Oral Motor Comments Comments: Manually assessed anterior neck for fascial restrictions. The patient demonstrated fascial restrictions in R anterior neck and in the region of the suprahyoids. SPECTROGRAPHIC ANALYST measured head rotation - R neck rotation 48mm and L neck rotation 47mm. Respiratory Status Respiratory Status: Room Air Modified Barium Results Hx If Applicable Enter into a NOTE MBS Report Entered: Yes MBS Results (from prior exam): 01/20/23 10:43 Speech Therapy by Morena Rodriguez [facility] Speech Pathology [address] [place] [address] Modified Barium Swallow Study MR#: [id number] Acct: [id number] Name: JUAN BARRIOS Rep #: [id number] : 1945 77 From: Shahida Romero M.A. [facility]-SPECTROGRAPHIC ANALYST Modified Barium Swallow Patient Information Study Date: 12/25/22 Study Time: 13:00 Direct Billable Minutes: 110 Total Minutes procedure & reportin Diagnosis: Hx of primary malignant neoplasm of base of tongue (Z85.810) Referring Physician: Chace Polk Reason for Referral: Objectively assess swallow function, risk for aspiration, and determine recommendations for least restrictive diet textures and compensatory strategies to improve safety of swallow - yearly follow up. 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 Cervical fusion (2013). History of oropharyngeal phase dysphagia s/p R submandibular gland excision and right selective neck dissection with concurrent chemoradiation. MBSS 06/18/2021 revealed mild oropharyngeal phase dysphagia and recommended Regular Textures - Easy to Chew textures, Thin Liquids; Compensatory Strategies: Small Bites, Small Sips - Consider use of effortful swallows. Cough and re-swallow if wet vocal quality with liquids., Slow Rate, Multiple Swallows, Sitting upright. He participated in oropharyngeal strengthening in junction with myofascial release following the study for 4 visits from 06/25/2021-07/06/2021. Most recent MBSS completed 02/05/22 which revealed mild-moderate oropharyngeal phase dysphagia and recommended Regular Textures, Thin Liquids; Compensatory Strategies:Small Bites, Small Sips - Cough and re-swallow each sip, Slow Rate, Alternate bites/solids and sips/liquids, Sitting upright, Remain sitting upright for 30 minutes after PO intake. Additional speech therapy was recommended following 02/05/22 MBSS d/t worsening swallow function ? the patient did attend one follow up ST session on 02/20/22, but did not return for additional treatment. The patient reports that he has been completing neck ROM exercises at home but admits that he has not been completing any swallowing exercises. The patient denies any instances of PNA since prior MBSS. Current Diet Ordered: Regular Textures/Thin Liquids Dentition: WNL Mental Status: WNL Respiratory Status: Oxygenating on Room Air Penetration-Aspiration Scale Penetration-Aspiration Scale: OBJECTIVE ASSESSMENT OF SWALLOW FUNCTION (QUANTITATIVE ? PER TRIAL): PENETRATION / ASPIRATION SCALE (DIAZ): 1 = does not enter airway 2 = enters airway/above vocal folds/ejected 3 = enters airway/above vocal folds/not ejected 4 = enters airway/contacts vocal folds/ejected 5 = enters airway/contacts vocal folds/not ejected 6 = enters airway/below vocal folds/ejected 7 = enters airway/below vocal folds/not ejected despite effort 8 = enters airway/below vocal folds/no effort VIDEOFLOROSCOPIC SCALE SCORE (DIAZ): Grade I = aspiration of material that has penetrated into the laryngeal vestibule, intact cough reflex Grade II = aspiration < 10 % of the bolus, intact cough reflex Grade III = aspiration of < 10 % of the bolus, reduced cough reflex or aspiration of > 10 % of the bolus, intact cough reflex Grade IV = aspiration of > 10 % of the bolus, reduced cough reflexPenetration- Aspiration Scale Score Thin Liquid via teaspoon: Result: 1= does not enter airway Thin Liquid via teaspoon Trial 2: Result: 3= enters airways/above vocal folds/not ejected Thin Liquid via cup: Result: 3= enters airways/above vocal folds/not ejected (during the swallow w/ eventual post-prandial progression to 5= enters airway/contacts vocal folds/not ejected) Thin liquid via sequential sips from cup: Result: 3= enters airways/above vocal folds/not ejected Thin liquid via straw: Result: 5= enters airways/contacts vocal folds/not ejected Pudding: Result: 1= does not enter airway Cookie: Result: 1= does not enter airway Thin Liquid via cup Trial 2: Result: 3= enters airways/above vocal folds/not ejected Oral Phase Labial Seal: No Labial Escape Tongue Control During Bolus Hold: Cohesive bolus between tongue to palatal seal Bolus Preparation/Mastication: Timely and efficient chewing and mashing Bolus Transport/Lingual Motion: Delayed initiation of tongue motion Oral Residue: Trace residue lining oral structures Pharyngeal Phase Initiation of Pharyngeal Swallow: Bolus head in valleculae Soft Palate Elevation: Trace column of contrast/air between soft palate and pharyngeal wall Laryngeal Elevation: Partial superior movement thyroid cart/partial apprx aryt- epig petiole Anterior Hyoid Excursion: Partial anterior movement Epiglottic Movement: No inversion Laryngeal Vestibule Closure at Height of Swallow: Incomplete; narrow column of air/contrast in laryngeal vestibule Pharyngeal Stripping Wave: Present - diminished Pharyngoesophageal Segment Opening: Parital distension and partial duration; parital obstruction of flow Tongue Base Retraction: Narrow column of contrast between tongue base & post. pharyngeal wall Pharyngeal Residue: Collection of residue within or on pharyngeal structures Treatment Strategies Effects of treatment strategies attemped:: -Cough and re-swallow: effective to clear contrast from the laryngeal vestibule -Multiple swallow: marginally effective to reduce pharyngeal residue -Liquid wash: effective to clear pharyngeal residue Diagnosis/Impression Diagnosis: mild-moderate oropharyngeal dysphagia (R13.12) Impression: The oral phase is characterized by: -adequate labial seal w/no anterior bolus loss -swallow onset was timely w/ thin liquid boluses intermittently reaching the valleculae prior to swallow onset -mild delay in lingual motion for AP bolus transportation -mastication grossly WNL The pharyngeal phase is characterized by: -incomplete hyolaryngeal excursion w/ no epiglottic inversion resulting in reduced airway protection during the swallow -reduced tongue base retraction and significantly diminished pharyngeal stripping wave, coupled w/ incomplete UES distention/duration, resulting in r educed pharyngeal clearance w/ moderate-severe post-prandial pharyngeal residue accumulation w/in the pyriforms/inferior pharyngeal wall -use of a liquid wash was effective to facilitate [id number] transit of post-prandial pharyngeal residue retention w/ cookie trial -thin liquids penetrated the laryngeal vestibule during the swallow d/t incomplete airway closure, contacting the vocal folds at times -the patient was sensate to vocal fold contact, with penetration spontaneously eliciting a throat clearing response from the patient -throat clear/cough and re-swallow were effective to expel contrast from the laryngeal vestibule Recommendations Diet: Regular Textures and Thin Liquids Compensatory Strategies: Small Bites, Small Sips (cough and re-swallow w/ sips), Alternate bites/solids and sips/liquids, Sitting upright and Remain sitting upright for 30 minutes after PO intake Recommend Repeat Modified Barium Swallow: Yes (Repeat MBSS in 6-12 months for ongoing assessment of swallow function d/t late effects of radiation ) Need for Skilled Speech Therapy Services: Yes Comment: Images were reviewed w/ the patient immediately following MBSS completion. Recommend f/u w/ ST for dysphagia therapy to address mild-moderate oropharyngeal dysphagia. Education was provided re: the impact of radiation tx on swallow function over time, the role of outpatient speech therapy for dysphagia management and the necessity of home exercise program implementation to improve swallow function, prevent further decline, and avoid associated risks (worsening dysphagia, aspiration, pneumonia, inability to maintain sufficient oral nutrition/hydration, etc). Education Completed: 1. Described result of evaluation., 2. Pt understands evaluation & agrees with goals and treatment plan. and 7. Pt requires further education on strategies & risks. Status Active ST Patient: Active Contact Information [facility] Speech Therapy:: Shahida Romero M.A. CCC-SPECTROGRAPHIC ANALYST Speech-Language Pathologist [facility] [address] [place] [address] [email or web address] [phone] 12/25/22 1451 <Electronically signed by Shahida Romero M.A. CCC-SPECTROGRAPHIC ANALYST> Date/Time Shahida Romero M.A. CCC-SPECTROGRAPHIC ANALYST Initialized on 01/20/23 10:43 - END OF NOTE Swallowing Performance Scale Swallowing Performance Scale Swallowing Performance Scale Result: 3 Mild Reference: Neuro-QoL instrument Radiation Oncology Patient FOIS Functional Oral Intake Scale Total oral diet with multiple consistencies, but requiring special preparation or compensations: Level 5 SP Oncology PSS-HN PSS-HN Test Normalcy of Diet: Full diet (liquid assist) Scale Result:: 90 Public Eating: No restrictions of place, food or companions-eats out any opportunity Public eating scale: 100 Understandability of Speech: Always understandable Understandability of Speech Scale: 100 Plan Plan Plan: Will recommend the patient for continued dysphagia therapy to implement oropharyngeal exercise program and educate in recommended aspiration precautions to promote improved swallow function s/p chemoradiation treatment for malignant neoplasm of base of tongue. Recommendations MBS: Yes Treatment Warranted: Yes Progress Prognosis: Good Frequency Frequency: 2-3x /Week Additional (Frequency): Frequency may change during POC pending patient's response to myofascial release. Will re-assess appropriateness for participation in myofascial release after 2 weeks. Duration: 12 Months Goals that are Established Determination:: Goals will be added/modified as deemed necessary and appropriate. Therapy will be discontinued when results of re-evaluation in dicate therapy is no longer needed or lack of progress has been documented. Goal #1-5 Goal #1: (LTG) The patient will consume least restrictive diet textures without overt s/s of aspiration with minimal verbal cues for use of compensatory strategies to decrease risk for aspiration. Goal #2: (STG) The patient will complete an oropharyngeal exercise program in junction with myofascial release to improve and maintain strength, ROM, and coordination of swallowing mechanism (X10-15 repetitions, 3-5X daily) (Janay, Effortful breath hold and swallow, T[place], Tongue raise and retraction w/ suction [soft palate]). Goal #3: (LTG) The patient will participate in annual MBS study to objectively assess swallow function and provide recommendations for safest, least restrictive diet and compensatory strategies to reduce risk for aspiration (12/2023). Goal #4: . Education Patient has Indicated that the Following The Patient has indicated that they have no educational or learning abilities that may effect their care.: Yes Patient Instruction Patient Education: Diagnosis, Treatment Plan, Goals and Safety Precautions Other Education: Instructed in updated home oropharyngeal exercise program, including education for rationale for all exercises selected. Pt verbalized understanding and demonstrated all exercises. Person Taught: Patient Teaching Method: Discussion, Demonstration and Handout Response to teaching: Return demonstration, Verbalize understanding and Reinforcement needed
--- NOTE | 2023-11-11 16:11 | HP.SP.DC_ITS ---
ST Discharge Summary Discharged: Discharge: Pt had been participating in OP speech therapy for 13 visits from 06/05/2021 ? 08/26/2023. During POC, he participated in multiple MBSS (05/14/2018, 10/18/2019, 06/18/2021, 12/25/2021). MBSS 12/25/2022 revealed mild-moderate oropharyngeal dysphagia, laryngeal penetration of thin liquids to the VF, recommended him for Regular Textures / Thin Liquids with the following compensatory strategies: Small Bites, Small Sips (cough and re-swallow w/ sips), Alternate bites/solids and sips/liquids, Sitting upright and Remain sitting upright for 30 minutes after PO intake. Most recently, he was attending therapy for oropharyngeal and neck ROM exercises in junction with myofascial release to address dysphagia secondary to SCC of the right tongue base s/p direct laryngoscopy with biopsies, right submandibular gland excision, and right selective neck dissection (09/11/2017), as well as concurrent chemoradiation therapy (11/10/2017 - 12/26/2017). He has not called to return to at this time. If patient wishes to continue oropharyngeal and neck ROM exercises in junction with myofascial release to address dysphagia, please re-consult DIESEL SERVICE APPRENTICE. Will recommend minimum annual MBSS to monitor risk for worsening swallow function s/p chemoradiation to treat SCC of the right tongue base.
== END 2023-08-27 19:00 | disposition home or self-care (01) ==
LOC: SP 09:30
PROVIDERS: PCP Nurse Practitioner; Referring Provider Student in an Organized Health Care Education/Training Program; Visit Provider Student in an Organized Health Care Education/Training Program
DX: Z85.810 Personal history of malignant neoplasm of tongue (principal)
CPT/HCPCS: 92526; 92610; 92611

== ENCOUNTER → 2023-10-09 | Outpatient (CLI) | payer MEDICARE, SELFPAY ==
[2022-10-29 17:47] VITALS: BMI 29.5
== END | disposition home or self-care (01) ==
LOC: LABSPEC 22:26
PROVIDERS: PCP Nurse Practitioner; Visit Provider Nurse Practitioner
DX: D51.0 Vitamin B12 deficiency anemia due to intrinsic factor deficiency (principal); Z85.810 Personal history of malignant neoplasm of tongue; E03.9 Hypothyroidism, unspecified
CPT/HCPCS: 84443

== ENCOUNTER → 2024-01-13 | Outpatient (CLI) | payer MEDICARE, SELFPAY ==
[2023-10-28 17:44] VITALS: BMI 29.5
--- NOTE | 2024-01-13 14:11 | ST.MBS ---
Modified Barium Swallow Patient Information Study Date: 01/13/24 Study Time: 13:00 Direct Billable Minutes: 105 Total Minutes procedure & reportin Diagnosis: Hx of primary malignant neoplasm of base of tongue (Z85.810) Referring Physician: Chace Polk Reason for Referral: Objectively assess swallow function, assess risk for aspiration, and determine recommendations for least restrictive diet textures and compensatory strategies to improve safety of swallow. 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 Dysphagia History: Patient was followed by ST during and following chemoradiation treatment. He has experienced chronic mild-moderate oropharyngeal dysphagia s/p SCC of R BOT s/p right submandibular gland excision, right selective neck dissection, and concurrent chemoradiation therapy. He participated in oropharyngeal strengthening and neck ROM exercises in junction with myofascial release for 4 visits from 06/25/2021-07/06/2021 and 7 visits from 08/11/23-08/27/2023 prior to discontinuing therapy due to intermittent neck pain. He has participated in 5 prior MBSS, most recently on 12/24/2022. He was recommended ?Regular Textures and Thin Liquids; Compensatory Strategies: Small Bites, Small Sips (cough and re-swallow w/ sips), Alternate bites/solids and sips/liquids, Sitting upright and Remain sitting upright for 30 minutes after PO intake.? He does report completing exercises for swallowing at times, but not consistently. Patient is consuming regular textures / thin liquids with need frequent liquid washes. Current Diet Ordered: Regular textures / Thin liquids Dentition: WNL and Natural Teeth Respiratory Status: Oxygenating on Room Air Penetration-Aspiration Scale Penetration-Aspiration Scale: OBJECTIVE ASSESSMENT OF SWALLOW FUNCTION (QUANTITATIVE ? PER TRIAL): PENETRATION / ASPIRATION SCALE (IDAZ): 1 = does not enter airway 2 = enters airway/above vocal folds/ejected 3 = enters airway/above vocal folds/not ejected 4 = enters airway/contacts vocal folds/ejected 5 = enters airway/contacts vocal folds/not ejected 6 = enters airway/below vocal folds/ejected 7 = enters airway/below vocal folds/not ejected despite effort 8 = enters airway/below vocal folds/no effort VIDEOFLOROSCOPIC SCALE SCORE (DIAZ): Grade I = aspiration of material that has penetrated into the laryngeal vestibule, intact cough reflex Grade II = aspiration < 10 % of the bolus, intact cough reflex Grade III = aspiration of < 10 % of the bolus, reduced cough reflex or aspiration of > 10 % of the bolus, intact cough reflex Grade IV = aspiration of > 10 % of the bolus, reduced cough reflex Penetration-Aspiration Scale Score Thin Liquid via teaspoon: Result: 3= enters airways/above vocal folds/not ejected Thin Liquid via teaspoon Trial 2: Result: 3= enters airways/above vocal folds/not ejected Thin Liquid via large single sip: cup: Result: 5= enters airways/contacts vocal folds/not ejected Comment: reflexive throat clear after the swallow Thin Liquid via sequential sips: cup: Result: 3= enters airways/above vocal folds/not ejected [place] Thick Liquid via small single sip: cup: Result: 2= enter airway/above vocal folds/ejected Pudding via teaspoon: Result: 1= does not enter airway Comment: Esophageal screen - minimal retention w/ retrograde flow in distal esophagus 1/2 Cookie: Result: 1= does not enter airway Thin Liquid via single sip: straw: Result: 3= enters airways/above vocal folds/not ejected Thin Liquid via single sip: straw Chin tuck: Result: 3= enters airways/above vocal folds/not ejected Thin Liquid via single sip: straw Effortful swallow: Result: 3= enters airways/above vocal folds/not ejected Comment: Cued cough and re-swallow after the trial = effective Oral Phase Labial Seal: No Labial Escape Tongue Control During Bolus Hold: Escape to lateral buccal cavity/floor of mouth Bolus Preparation/Mastication: Timely and efficient chewing and mashing Bolus Transport/Lingual Motion: Delayed initiation of tongue motion Oral Residue: Residue collection on oral structures Pharyngeal Phase Initiation of Pharyngeal Swallow: Bolus head at posterior laryngeal surgace of epiglottis Soft Palate Elevation: Trace column of contrast/air between soft palate and pharyngeal wall Laryngeal Elevation: Partial superior movement thyroid cart/partial apprx aryt-epig petiole Anterior Hyoid Excursion: Partial anterior movement Epiglottic Movement: No inversion Laryngeal Vestibule Closure at Height of Swallow: Incomplete; narrow column of air/contrast in laryngeal vestibule Pharyngeal Stripping Wave: Present - diminished Pharyngoesophageal Segment Opening: Parital distension and partial duration; parital obstruction of flow Tongue Base Retraction: Narrow column of contrast between tongue base & post. pharyngeal wall Pharyngeal Residue: Collection of residue within or on pharyngeal structures Esophageal Phase Esophageal Clearance: Esophageal retention w/ retrograde flow below pharyngoesophageal seg. Diagnosis/Impression Diagnosis: Mild-moderate oropharyngeal dysphaiga R13.12 Impression: The oral phase is primarily marked by... -Mild delay in tongue motion for A-P transport -Mild oral residue, which fully cleared w/ independent initiation of a second swallow as needed. The pharyngeal phase is characterized by: -Decreased airway closure during the swallow due to decreased anterior hyoid excursion, laryngeal elevation, and no epiglottic inversion. -Decreased pharyngeal motility due to decreased tongue base retraction, pharyngeal stripping wave, and incomplete UES distention/duration, which resulted in mild-moderate pharyngeal residues of liquids and moderate pharyngeal residues of cookie. Liquid wash and multiple swallows were most effective in reducing pharyngeal residues. -Consistent laryngeal penetration of thin liquids, which did not fully eject after the swallow placing him at increased risk for post prandial aspiration. Cough and re-swallow was most effective in decreasing risk for post prandial aspiration. Recommendations Diet: Regular Textures and Thin Liquids Compensatory Strategies: Small Bites, Small Sips (Intermittent cough and re-swallow), Slow Rate, Multiple Swallows, Alternate bites/solids and sips/liquids and Sitting upright Recommend Repeat Modified Barium Swallow: Yes Comment: Plan for repeat MBSS in 6-12 months to continue to monitor swallow function s/p chemoradiation, as pt is at increased risk for worsening dysphagia and aspiration risk related to ferry terminal agent effects of chemoradiation. Need for Skilled Speech Therapy Services: Yes Comment: Overall, patient continues w/ chronic dysphagia; however, he scored very similarly in his swallow function as compared to the previous MBSS (12/2022). Will recommend continued completion of maintenance home exercise program. Pt verbalized understanding. Hold neck ROM exercises if persistent neck pain when completing exercises. If concern for worsening swallow function, increased difficulty consuming regular textures / thin liquids, or need for re-education in exercise program, please return to OP ST. Education Completed: 1. Described result of evaluation. and 5. Patient demonstrates recommended strategies. Status Active ST Patient: Active Contact Information [facility] Speech Therapy:: Morena Rodriguez M.A. CCC-BRAKE RIDER? Speech-Language Pathologist?? [facility] [address] [place] [address]? [email or web address]?? [phone]
[2024-01-13 21:52] LABS: Absolute Lymphocyte Count 0.89 X10^3/uL (0.83-4.51); Absolute Neutrophil Count 2.1 X10^3/uL (2.0-7.7); Basophil# 0.06 X10^3/uL; Basophil% 1.7 % (0-1); Eosinophil# 0.17 X10^3/uL; Eosinophils% 4.8 % (0-5); Hematocrit 39.1 % (40-54); Hemoglobin 13.4 g/dL (13.0-16.5); Lymphocyte # 0.89 X10^3/ul (0.83-4.51); Mean Corp Hgb Conc 34.3 g/dL (32-36); Mean Corpuscular Hgb 29.9 pg (27.0-32.0); Mean Corpuscular Volume 87.3 fL (80-94); Mean Platelet Vol. 9.3 fl (6.2-12.0); Monocyte# 0.37 X10^3/uL; Monocyte% 10.4 % (0-10); NRBC Flagged by Analyzer 0 % (0-5); Neutrophil # 2.06 X10^3/uL (2.7-7.7); Neutrophil % 57.8 % (47-70); Platelet Count 204 K/mm3 (150-450); RBC Distribution Width CV 13.5 % (11.6-14.6); RBC Distribution Width SD 42.6 fl (35.1-43.9); Red Blood Count 4.48 M/mm3 (4.6-6.2); White Blood Count 3.6 K/mm3 (4.4-11.0)
[2024-01-13 22:16] LABS: ALB/GLOB Ratio 1.1 RATIO (0.9-2.4); AST(SGOT) 17 U/L (15-37); Alanine Aminotransfer ALT/SGPT 26 U/L (16-61); Albumin, Serum 3.6 g/dL (3.2-5.0); Alkaline Phosphatase 88 U/L (45-117); Anion Gap 7 (5-15); BUN 25 mg/dL (7-18); BUN/Creat Ratio 17.9 RATIO (10-20); Chloride 107 mmol/L (98-107); EST Glomerular Filtration Rate 52 mL/min (>60); Est Glom Filt Rate - Afr Amer 63 mL/min (>60); Globulin 3.4 g/dL (2.2-4.2); Glucose 110 mg/dL (74-106); Potassium 4.1 mmol/L (3.5-5.1); Sodium Level 140 mmol/L (136-145); Uric Acid 7.4 mg/dL (3.5-7.2)
[2024-01-13 22:18] LABS: Hemoglobin A1c 5.5 % (3.8-5.6)
[2024-01-13 23:08] LABS: Vitamin B12 417 pg/mL (211-911)
[2024-01-16 12:10] LABS: Anti-Centromere B Ab <0.2 AI (0.0-0.9); Anti-Chromatin <0.2 AI (0.0-0.9); Anti-Jo <0.2 AI (0.0-0.9); Anti-Scleroderma-70 AB <0.2 AI (0.0-0.9); Anti-dsDNA Ab 1 IU/mL (0-9); RNP Ab <0.2 AI (0.0-0.9); SJOGREN'S Anti-SS-A test > 8.0 AI (0.0-0.9); SJOGREN'S Anti-SS-B test < 0.2 AI (0.0-0.9); Smith Ab <0.2 AI (0.0-0.9); Vitamin D 1,25-Dihydroxy 37.3 pg/mL (24.8-81.5)
[2024-01-20 20:08] LABS: VITAMIN B6 59.6 ug/L (3.4-65.2)
== END | disposition home or self-care (01) ==
PROVIDERS: PCP Nurse Practitioner; Referring Provider Student in an Organized Health Care Education/Training Program; Visit Provider Student in an Organized Health Care Education/Training Program
DX: C01 Malignant neoplasm of base of tongue (principal); I10 Essential (primary) hypertension; E03.9 Hypothyroidism, unspecified; E53.8 Deficiency of other specified B group vitamins; E55.9 Vitamin D deficiency, unspecified; D72.819 Decreased white blood cell count, unspecified; M1A.49X0 Other secondary chronic gout, multiple sites, without tophus (tophi); R41.89 Other symptoms and signs involving cognitive functions and awareness; R73.9 Hyperglycemia, unspecified
CPT/HCPCS: 74230; 80053; 82607; 82652; 83036; 84207; 84443; 84550; 85025; 86225; 86235; 92611

== ENCOUNTER → 2024-08-27 | Outpatient (CLI) | payer MEDICARE, SELFPAY ==
[2023-10-28 17:44] VITALS: BMI 29.5
[2024-08-27 23:44] LABS: Cholesterol 184 mg/dL (<=200); High Density Lipoprotein 56 mg/dL; Low Density Lipoprotein Calc. 83 mg/dL; Triglycerides 225 mg/dL; Very Low Density Lipoprotein 45 mg/dL (5-40); cholesterol:hdl ratio screen 3.28
[2024-08-31 13:08] LABS: Vitamin D 1,25-Dihydroxy 28.6 pg/mL (24.8-81.5)
== END | disposition home or self-care (01) ==
LOC: OLS.AHF 22:49 → LABSPEC 08-28 09:12
PROVIDERS: PCP Nurse Practitioner; Referring Provider Nurse Practitioner; Visit Provider Nurse Practitioner
DX: E03.9 Hypothyroidism, unspecified (principal); E55.9 Vitamin D deficiency, unspecified; E78.5 Hyperlipidemia, unspecified
CPT/HCPCS: 80061; 82652; 84443

== ENCOUNTER → 2025-01-13 | Outpatient (CLI) | payer MEDICARE, SELFPAY ==
[2023-10-28 17:44] VITALS: BMI 29.5
--- NOTE | 2025-01-13 07:52 | US_ITS ---
PROCEDURE: ABDOMEN LIMITED 01/13/2025 REASON FOR EXAM: INCREASED LIVER ENZYMES TECHNIQUE: Procedure Code: USABDL Modality: US Procedure: ABDOMEN LIMITED FINDINGS: The liver measures 17.0 cm in length. Echogenicity is within normal limits. No focal hepatic mass is seen. Intrahepatic and extrahepatic bile ducts are within normal limits in caliber. Hepatic color Doppler demonstrates hepatopetal flow. The gallbladder measures 4.2 cm in length. The gallbladder is distended. Gallbladder wall measures 3 mm. Multiple echogenic calculi are present in the gallbladder neck which do not move with change in patient position. No pericholecystic fluid is present. Common bile duct measures 9 mm in diameter. The pancreas is suboptimally visualized, obscured by bowel gas. The right kidney measures 10.0 x 5.0 x 4.2 cm. Cortical thickness is 1.0 cm. Cortical echogenicity is within normal limits. No hydronephrosis or renal calculus is identified. US/Abdomen Limited IMPRESSION: Distended gallbladder with multiple calculi lodged in the gallbladder neck. Gal lstones do not move with patient repositioning. Cornelius's sign not assessed by the technologist. Common bile duct measures 9 mm, upper limits of normal to mildly dilated. Corre late with LFTs and consider MRCP if clinically indicated. Normal sonographic appearance of the liver and right kidney. Pancreas not well visualized due to overlying bowel gas. Reading Location: [id number]
== END | disposition home or self-care (01) ==
LOC: US 07:52
PROVIDERS: PCP Nurse Practitioner; Referring Provider Internal Medicine Hematology & Oncology; Visit Provider Internal Medicine Hematology & Oncology
DX: R74.8 Abnormal levels of other serum enzymes (principal)
CPT/HCPCS: 76705

== ENCOUNTER → 2025-01-25 | Outpatient (CLI) | payer MEDICARE, SELFPAY ==
[2023-10-28 17:44] VITALS: BMI 29.5
[2025-01-25 22:37] LABS: Hematocrit 35.5 % (40-54); Hemoglobin 12.1 g/dL (13.0-16.5); Immature Granulocytes Count 0.010 X10^3/uL (0.0-0.0); Mean Corp Hgb Conc 34.1 g/dL (32-36); Mean Corpuscular Volume 87.4 fL (80-94); Mean Platelet Vol. 9.5 fl (6.2-12.0); NRBC Flagged by Analyzer 0 % (0-5); Platelet Count 209 K/mm3 (150-450); RBC Distribution Width CV 13.9 % (11.6-14.6); RBC Distribution Width SD 44.3 fl (35.1-43.9); Red Blood Count 4.06 M/mm3 (4.6-6.2); White Blood Count 3.6 K/mm3 (4.4-11.0)
[2025-01-25 22:59] LABS: AST(SGOT) 24 U/L (<=37); Alanine Aminotransfer ALT/SGPT 21 U/L (<=46); Albumin, Serum 4.1 g/dL (3.4-4.8); Alkaline Phosphatase 89 U/L (40-129); Anion Gap 12 (5-15); BUN 23 mg/dL (4-19); BUN/Creat Ratio 17.3 RATIO (10-20); Calcium,Total 9.2 mg/dL (7.6-11.0); Carbon Dioxide 21.4 mmol/L (21.0-32.0); Chloride 105 mmol/L (98-108); Cholesterol 180 mg/dL (<=200); Globulin 2.9 g/dL (2.2-4.2); Glucose 100 mg/dL (70-99); Low Density Lipoprotein Calc. 82 mg/dL; PSA,Total- Diagnostic 3.54 ng/mL (0.00-4.00); Potassium 3.9 mmol/L (3.3-5.1); Triglycerides 185 mg/dL; Uric Acid 5.8 mg/dL (3.5-7.2); Very Low Density Lipoprotein 37 mg/dL (5-40); cholesterol:hdl ratio screen 2.96
[2025-01-28 11:08] LABS: Vitamin D 1,25-Dihydroxy 33.4 pg/mL (24.8-81.5)
== END | disposition home or self-care (01) ==
PROVIDERS: PCP Nurse Practitioner; Visit Provider Nurse Practitioner
DX: R74.8 Abnormal levels of other serum enzymes (principal); E55.9 Vitamin D deficiency, unspecified; E03.9 Hypothyroidism, unspecified; D51.0 Vitamin B12 deficiency anemia due to intrinsic factor deficiency; R53.83 Other fatigue; M1A.49X0 Other secondary chronic gout, multiple sites, without tophus (tophi); I10 Essential (primary) hypertension; E78.5 Hyperlipidemia, unspecified; N40.0 Benign prostatic hyperplasia without lower urinary tract symptoms
CPT/HCPCS: 80053; 80061; 82652; 84153; 84443; 84550; 85025

== ENCOUNTER → 2025-02-01 | Outpatient (CLI) | payer MEDICARE, SELFPAY ==
[2023-10-28 17:44] VITALS: BMI 29.5
--- NOTE | 2025-02-01 15:53 | ST.MBS ---
Modified Barium Swallow Patient Information Study Date: 02/01/25 Study Time: 13:05 Direct Billable Minutes: 107 Total Minutes procedure & reportin Diagnosis: Hx of primary malignant neoplasm of base of tongue (Z85.810) Referring Physician: Chace Polk Reason for Referral: Objectively assess swallow function, assess risk for aspiration, and determine recommendations for least restrictive diet textures and compensatory strategies to improve safety of swallow. 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 Dysphagia History: Patient was followed by ST during and following chemoradiation treatment. He has experienced chronic mild-moderate oropharyngeal dysphagia s/p SCC of R BOT s/p right submandibular gland excision, right selective neck dissection, and concurrent chemoradiation therapy. He participated in oropharyngeal strengthening and neck ROM exercises in junction with myofascial release for 4 visits from 06/25/2021-07/06/2021 and 7 visits from 08/11/23-08/27/2023 prior to discontinuing therapy due to intermittent neck pain. He has participated in 6 prior MBSS, most recently on 01/12/2025. He was recommended “Regular Textures and Thin Liquids; Compensatory Strategies: Small Bites, Small Sips (Intermittent cough and re-swallow), Slow Rate, Multiple Swallows, Alternate bites/solids and sips/liquids and Sitting upright.” He does report completing exercises for swallowing at times, but not consistently. He is completing neck ROM exercises daily, multiple times per day. Patient is consuming regular textures / thin liquids continued use of liquid washes. He denies odynophagia, xerostomia, or hypogeusia. Current Diet Ordered: Regular textures / Thin liquids Dentition: Natural Teeth and Missing Teeth Mental Status: WNL Respiratory Status: Oxygenating on Room Air Penetration-Aspiration Scale Penetration-Aspiration Scale: OBJECTIVE ASSESSMENT OF SWALLOW FUNCTION (QUANTITATIVE – PER TRIAL): PENETRATION / ASPIRATION SCALE (DIAZ): 1 = does not enter airway 2 = enters airway/above vocal folds/ejected 3 = enters airway/above vocal folds/not ejected 4 = enters airway/contacts vocal folds/ejected 5 = enters airway/contacts vocal folds/not ejected 6 = enters airway/below vocal folds/ejected 7 = enters airway/below vocal folds/not ejected despite effort 8 = enters airway/below vocal folds/no effort VIDEOFLOROSCOPIC SCALE SCORE (DAIZ): Grade I = aspiration of material that has penetrated into the laryngeal vestibule, intact cough reflex Grade II = aspiration < 10 % of the bolus, intact cough reflex Grade III = aspiration of < 10 % of the bolus, reduced cough reflex or aspiration of > 10 % of the bolus, intact cough reflex Grade IV = aspiration of > 10 % of the bolus, reduced cough reflex Penetration-Aspiration Scale Score Thin Liquid via teaspoon: Result: 4= enters airway/contacts vocal folds/ejected Comment: Reflexive throat clear Thin Liquid via teaspoon Trial 2: Result: 3= enters airways/above vocal folds/not ejected Thin Liquid via small single sip: cup: Result: 3= enters airways/above vocal folds/not ejected Thin Liquid via sequential sips: cup: Result: 5= enters airways/contacts vocal folds/not ejected Comment: Delayed reflexive throat clear mostly cleared penetrated contrast from the laryngeal vestibule after the swallow Hos[place] Thick Liquid via small single sip: cup: Result: 3= enters airways/above vocal folds/not ejected Comment: Delayed cough = effective. Pudding via teaspoon: Result: 1= does not enter airway Comment: Esophageal screen - Complete clearance. 1/2 Cookie: Result: 2= enter airway/above vocal folds/ejected Thin Liquid via small single sip: cup Trial 2: Result: 5= enters airways/contacts vocal folds/not ejected Comment: Reflexive cough = effective Thin Liquid via small single sip: cup Chin tuck: Result: 3= enters airways/above vocal folds/not ejected Comment: Volitional cough = effective Thin Liquid via small single sip: cup Effortful swallow: Result: 5= enters airways/contacts vocal folds/not ejected Comment: Volitional cough = effective Thin Liquid via small single sip: cup w/ Cued breath hold, then hard swallow: Result: 5= enters airways/contacts vocal folds/not ejected Comment: Volitional cough = effective Oral Phase Labial Seal: No Labial Escape Tongue Control During Bolus Hold: Posterior escape of less than half of bolus Bolus Preparation/Mastication: Disorganized chewing/mashing with solid pieces of bolus unchewed (Portion of cookie not fully chewed) Bolus Transport/Lingual Motion: Delayed initiation of tongue motion Oral Residue: Residue collection on oral structures Pharyngeal Phase Initiation of Pharyngeal Swallow: Bolus head in pyriforms Soft Palate Elevation: Escape to nasopharynx Laryngeal Elevation: Partial superior movement thyroid cart/partial apprx aryt-epig petiole Anterior Hyoid Excursion: Partial anterior movement Epiglottic Movement: Partial inversion (Minimal) Laryngeal Vestibule Closure at Height of Swallow: Incomplete; narrow column of air/contrast in laryngeal vestibule Pharyngeal Stripping Wave: Present - diminished Pharyngoesophageal Segment Opening: Parital distension and partial duration; parital obstruction of flow Tongue Base Retraction: Narrow column of contrast between tongue base & post. pharyngeal wall Pharyngeal Residue: Collection of residue within or on pharyngeal structures Esophageal Phase Esophageal Clearance: Complete clearance Treatment Strategies Effects of treatment strategies attemped:: Volitional and reflexive coughing and throat clearing = effective. Liquid wash = effective. Multiple swallows = somewhat effective. Diagnosis/Impression Diagnosis: Moderate oropharyngeal dysphagia R13.12 [facility] Impressions: The oral phase is primarily marked by... -Mild delay in tongue motion for A-P transport. -Decreased mastication of cookie as small piece of un-chewed cookie was caught in the pharynx. TOMOGRAPHIC TECH educated pt in increased choking risk if not chewing thoroughly. -Mild oral residue, which fully cleared w/ independent initiation of a second swallow as needed. The pharyngeal phase is characterized by... -Decreased velopharyngeal closure during the swallow w/ minimal escape of barium to the nasopharynx. -Decreased airway closure during the swallow due to decreased anterior hyoid excursion, laryngeal elevation, and minimal epiglottic inversion. -Decreased pharyngeal motility due to decreased tongue base retraction, pharyngeal stripping wave, and UES distention/duration, which resulted in moderate pharyngeal residues of liquids and cookie. Multiple swallows were somewhat effective in clearing pharyngeal residues of liquids; however, liquid wash was required to clear moderate pharyngeal residue of cookie. -Consistent laryngeal penetration of thin liquids, which did not fully eject after the swallow placing him at increased risk for post prandial aspiration. As compared to last years MBSS, the patient more consistently penetrated liquids to the vocal folds. Volitional and reflexive coughing and throat clearing effectively decreased his risk for aspiration. Recommendations Diet: Regular Textures and Thin Liquids Compensatory Strategies: Small Bites (CHEW THOROUGHLY), Small Sips (Cough/throat clear and re-swallow as needed, pt sensate of laryngeal penetration), Slow Rate, Multiple Swallows, Alternate bites/solids and sips/liquids, Sitting upright and Remain sitting upright for 30 minutes after PO intake Recommend Repeat Modified Barium Swallow: Yes Comment: Repeat MBSS recommended after completion of [facility]. Need for Skilled Speech Therapy Services: Yes Comment: Pt is recommended for participation in the [facility] ([facility]), an intensive, systematic exercise-based dysphagia program, which is evidenced based to improve swallow function in patients w/ hx of HNC. 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 TOMOGRAPHIC TECH obtained OP ST orders for the patient from Dr. Polk. Education Completed: 1. Described result of evaluation. and 2. Pt understands evaluation & agrees with goals and treatment plan. Status Active ST Patient: Active Contact Information [facility] Speech Therapy:: Morena Rodriguez M.A. [facility] Speech-Language Pathologist [facility] [address] [place] [address] [email or web address] [phone]
== END | disposition home or self-care (01) ==
PROVIDERS: PCP Nurse Practitioner; Referring Provider Student in an Organized Health Care Education/Training Program; Visit Provider Student in an Organized Health Care Education/Training Program
DX: Z08 Encounter for follow-up examination after completed treatment for malignant neoplasm (principal); Z85.810 Personal history of malignant neoplasm of tongue
CPT/HCPCS: 74230; 92611